=== PATIENT | female | born 1945 | race Caucasian/White ===

== ENCOUNTER 2018-08-27 16:02 | Emergency (ER) | payer MEDICARE ==
[~2018-08-27] VITALS: Ht 149.9 cm; Wt 54.4 kg
--- OUTSIDE RECORDS SUMMARY | ~2018-08-27 | XMS | Clinical Summary ---
Demographics + + + | Address | [address] | | | [place] [address] | + + + | Home Phone | | + + + | Preferred Language | Unknown | + + + | Marital Status | | + + + | Zoroastrianism Affiliation | Unknown | + + + | Race | Unknown | + + + | Ethnic Group | Unknown | + + + Author + + + | Author | [facility] | | | and [place] | + + + | Organization | [facility] | | | and [place] | + + + | Address | Unknown | + + + | Phone | Unavailable | + + + Support + + + + + | Name | Relationship | Address | Phone | + + + + + | Lolly Conrad | ECON | [address] | | | | | [place] | | | | | [address] | | + + + + + | Chun Porter | ECON | [address] | | | | | [place] | | | | | [address] | | + + + + + Care Team Providers + +------+ + | Care Lehr Attendant Name | Role | Phone | + +------+ + | Zackary Tee MD | PP | | + +------+ + Allergies + + + + + + | Active Allergy | Reactions | Severity | Noted | Comments | | | | | Date | | + + + + + + | Codeine | Other (See Comments) | Low | 06/23/19 | Headache | | | | | 18 | | + + + + + + | Hydromorphone | Nausea And Vomiting, | Low | 08/30/19 | | | | Rash | | 18 | | + + + + + + | Penicillins | Itching, Rash | Medium | 06/23/19 | | | | | | 18 | | + + + + + + | Oxycodone | Other (See Comments) | | 08/30/19 | Headache | | | | | 18 | | + + + + + + | Sulfamethoxazole-Tri | Other (See Comments) | | 08/30/19 | Reaction not | | methoprim | | | 18 | specified in outside | | | | | | medical records | + + + + + + | Tyloxapol | Other (See Comments) | Low | 06/23/19 | Other reaction(s): | | | | | 18 | Headache | + + + + + + | Hydrocodone | Other (See Comments) | | 08/30/19 | Headache | | | | | 18 | | + + + + + + | Ondansetron | Other (See Comments) | | 08/30/19 | Headache, | | | | | 18 | constipation | + + + + [...] 0 | | | Activ | | [id number] | | | | | | e | | AMANDA Tierney PO | | | | | | | + + + +---------+------+------+-------+ | potassium chloride | Take 20 mEq by mouth | | 0 | 01/1 | | Activ | | (KLOR-CON M20) 20 | 2 times daily. | | | 9/20 | | e | | mEq ER tablet | | | | 18 | | | + + + +---------+------+------+-------+ | levothyroxine | Take 112 mcg by | | 0 | 02/1 | | Activ | | (SYNTHROID) 112 [...] mouth | | 0 | | | Activ | | TABS | nightly as needed. | | | | | e | + + + +---------+------+------+-------+ | cholecalciferol [...] | Activ | | aspirin-acetaminophe | by mouth every 6 | | | | | e | | n-caffeine (EXCEDRIN | hours as needed for | | | | | | | MIGRAINE) | Pain. | | | | | | | 250-250-65 MG per | | | | | | | | tablet | | | | | | | + + + +---------+------+------+-------+ | ibuprofen (ADVIL, | Take 200-400 mg by | | 0 | | | Activ | | MOTRIN) 200 mg | mouth every 6 hours | | | | | e | | tablet | as needed for Pain. | | | | | | + + + +---------+------+------+-------+ Active Problems Not on file Family History + + +------+ + | [...] + +---------+ + | Alcohol Use | Drinks/We | oz/Week | Comments | | | ek | | | + + +---------+ + | No [...] recent travel history available. | + + Last Filed Vital Signs + + + + | Vital Sign | Reading | Time Taken | + + + + | Blood Pressure | 143/80 | 08/30/2017931 PDT | + + + + | Pulse | 73 | 08/30/2017931 PDT | + + + + | Temperature | - | - | + + + + | Respiratory Rate | - | - | + + + + | Oxygen Saturation | - | - | + + + + | Inhaled Oxygen | - | - | | Concentration | | | + + + + | Weight | 52.2 kg (115 lb) | 08/30/2017931 PDT | + + + + | Height | 149.9 cm (4' 11") | 08/30/2017931 PDT | + + + + | Body Mass Index | 23.23 | 08/30/2017 0932 PDT | + + + + Plan of Treatment + + + + + | Health Maintenance | Due Date | Last Done | Comments | + + + + + | Vaccine: | | | | | Dtap/Tdap/Td (1 - | 3 | | | | Tdap) | | | | + + + + + | Vaccine: Zoster (1 | | | | | of 2) | 4 | | | + + + + + | Vaccine: | | | | | Pneumococcal 65+ | 9 | | | | Low/Medium Risk (1 | | | | | of 2 - PCV13) | | | | + + + + + | Adult Annual | | | | | Wellness Visit | 5 | | | + + + + + | Vaccine: Influenza | | | | | (Season Ended) | 9 | | | + + + + + | Colorectal Cancer | | 04/11/2012 | | | Screening | 3 | | | | (Colonoscopy) | | | | + + + + + Results Not on filefrom Last 3 Months Insurance + +--------+ +--------+-------+---------+--------+ | Payer | Benefi | Subscriber | Effect | Phone | Address | Type | | | t Plan | ID | [place] | | | | | | / | | Dates | | | | | | Group | | | | | | + +--------+ +--------+-------+---------+--------+ | [employer] | MODA | [id number] | 07/11/19 | | | Medica | [...] | | al/Fam | | 1946 | [phone] | [place] [address] | | | [place] | | | 4 (Home) | | + +--------+ +--------+ + + Advance Directives Patient has advance care planning documents on file. For more information, please contact:[facility] [place] [address]
--- OUTSIDE RECORDS SUMMARY | ~2018-08-27 | XMS | Encounter Summary ---
Demographics + + + | Address | [address] | | | [place] [address] | + + + | Home Phone | | + + + | Preferred Language | Unknown | + + + | Marital Status | | + + + | Lutheran Affiliation | Unknown | + + + | Race | White | + + + | Ethnic Group | Not or | + + + Author + + + | Author | [facility] | + + + | Organization | [facility] | + + + | Address | Unknown | + + + | Phone | Unavailable | + + + Support + + + + + | Name | Relationship | Address | Phone | + + + + + | Chun Porter | ECON | [address] | | | | | [place] | | | | | [address] | | + + + + + | Katrina Huerta | ECON | Unknown | | + + + + + Care Team Providers + +------+ + | Care Clinical Educator Name | Role | Phone | + [...] membrane | | 2010 | Visit | [place] | | | | | | [facility] | | | | [facility] [address] [facility] [address] | | | | | [address] | | | | | | Mailcode: [facility] | | | | | | [place], [place] | | | | | | [address] | | | | | | [phone] | | | +--------+---------+ + + + [...] encounter Josiah Gresham - 05/05/2010 4:37 PM Zuleika Sydnee Porter was seen in the [facility] te Photography/Ultrasound Department today, 05/05/2010, for fluorescein, fundus photography a nd OCT ou. ps documented in this enc ounter Plan of Treatment Not on filedocumented as of this encounter Visit Diagnoses + + | Diagnosis | + + | Epiretinal membrane Macular puckering of retina | + + documented in this encounter"
--- OUTSIDE RECORDS SUMMARY | ~2018-08-27 | XMS | Clinical Summary ---
Demographics + + + | Address | [address] | | | [place] [address] | + + + | Home Phone | | + + + | Preferred Language | Unknown | + + + | Marital Status | | + + + | Latter-Day Affiliation | 1077 | + + + | Race | Unknown | + + + | Ethnic Group | Unknown | + + + Author + + + | Author | [facility] | + + + | Organization | [facility] | + + + | Address | Unknown | + + + | Phone | Unavailable | + + + Support + + + + + | Name | Relationship | Address | Phone | + + + + + | Lolly Baugh | ECON | [address] | | | | | [place] | | | | | [address] | | + + + + + Care Team Providers + +------+ + | Care Line And Frame Poler Name | Role | Phone | + +------+ + | Zackary Tee MD | PP | | + +------+ + Allergies + + + + + + | Active Allergy | Reactions | Severity | Noted | Comments | | | | | Date | | + + + + + + | Codeine | Headache | Low | 06/23/19 | Other reaction(s): | | | | | 18 | Other (See | | | | | | Comments) Headache | + + + + + + | Hydrocodone | Other (See Comments) | High | 08/30/19 | Headache | | | | | 18 | | + + + + + + | Hydromorphone | Nausea and Vomiting, | High | 08/30/19 | | | | Rash | | 18 | | + + + + + + | Ondansetron | Other (See Comments) | High | 08/30/19 | Headache, | | | | | 18 | constipation | + + + + + + | Oxycodone | Other (See Comments) | High | 08/30/19 | Headache | | | | | 18 | | + + + + + + | Penicillins | Rash, Itching | Medium | 06/23/19 | | | | | | 18 | | + + + + + + | Sulfamethoxazole-Tri | Other (See Comments) | Medium | 08/30/19 | Reaction not | | methoprim | | | 18 | specified in outside | | | | | | medical records | + + + + + + | Tyloxapol | Headache | High | 06/23/19 | Other reaction(s): | | | | | 18 | Other (See | | | | | | Comments) Other | | | | | | reaction(s): | | | | | | Headache | + + + + + + Current Medications + + +-------+---------+------+------+-------+ | Prescription | Sig. | Disp. | Refills | Star | End | Statu | | | | | | t | Date | s | | | | | | Date | | | + + +-------+---------+------+------+-------+ | levothyroxine | | | | 02/ | | Activ | | (SYNTHROID) 112 MCG | | | | 09/28 | | e | | tablet | | | | 18 | | | + + +-------+---------+------+------+-------+ | SERGEY-SEBLE M20 20 | | | | / | | Activ | | MEQ tablet | | | | 12/29 | | e | | | | | | 18 | | | + + +-------+---------+------+------+-------+ | Multiple | Take 1 tablet by | | | | | Activ | | Vitamins-Minerals | mouth daily. | | | | | e | | (MULTIVITAMIN WITH | | | | | | | | MINERALS) tablet | | | | | | | + + +-------+---------+------+------+-------+ | | Take by mouth. | | | | | Activ | | Qmtaude-Uwpumbdzx-Nw | | | | | | e | | wilbur D (CALCIUM 500 | | | | | | | | PO) | | | | | | | + + +-------+---------+------+------+-------+ | | Take 0.5-1 tablets | | | | | Activ | | aspirin-acetaminophe | by mouth. | | | | | e | | n-caffeine (EXCEDRIN | | | | | | | | MIGRAINE) | | | | | | | | 250-250-65 MG per | | | | | | | | tablet | | | | | | | + + +-------+---------+------+------+-------+ | Cholecalciferol | Take 1,000 Units by | | | | | Activ | | (VITAMIN D3) 1000 | mouth. | | | | | e | | units CAPS | | | | | | | + + +-------+---------+------+------+-------+ | ibuprofen (ADVIL) | Take 200-400 mg by | | | | | Activ | | 200 MG tablet | mouth. | | | | | e | + + +-------+---------+------+------+-------+ | melatonin 3 MG | Take 3 mg by mouth. | | | | | Activ | | TABS | | | | | | e | + + +-------+---------+------+------+-------+ | SHINGRIX 50 MCG | | | | 09/09 | | Activ | | injection | | | | 08/28 | | e | | | | | | 18 | | | + + +-------+---------+------+------+-------+ Active Problems + + + | Problem | Noted Date | + + + | Arthritis | 06/22/2017 | + + + + + | Overview: Added automatically from request for surgery [id number] | + + + + + | Chronic pain of right thumb | 06/22/2017 | + + + + + | Overview: Added automatically from request for surgery [id number] | + + Family History + + +------+ + | Medical History | Relation | Name | Comments | + + +------+ + | Cancer | Cousin | | | + + +------+ + | Diabetes type I | Cousin | | | + + +------+ + | Heart disease | Cousin | | | + + +------+ + | Hypertension | Cousin | | | + + +------+ + | Obesity | Cousin | | | + + +------+ + | Stroke | Cousin | | | + + +------+ + | Thyroid disease | Cousin | | | + + +------+ + | Malig hypertherm | Neg Hx | | | + + +------+ + + +------+--------+ + | Relation | Name | Status | Comments | + +------+--------+ + | Cousin | | | | + +------+--------+ + [...] + + + | Blood Pressure | 122/64 | 11/28/2017 1:46 PM PDT | + + + + | Pulse | 78 | 11/28/2017 1:46 PM PDT | + + + + | Temperature | 36.8 C (98.2 F) | 07/05/2017 6:20 PM PDT | + + + + | Respiratory Rate | 14 | 11/28/2017 1:46 PM PDT | + + + + | Oxygen Saturation | 98% | 07/05/2017 6:20 PM PDT | + + + + | Inhaled Oxygen | - | - | | Concentration | | | + + + + | Weight | 52.2 kg (115 lb) | 11/28/2017 1:46 PM PDT | + + + + | Height | 149.9 cm (4' 11") | 11/28/2017 1:46 PM PDT | + + + + | Body Mass Index | 23.23 | 11/28/2017 1:46 PM PDT | + + + + Plan of Treatment + + + + + | Health Maintenance | Due Date | Last Done | Comments | + + + + + | Vaccine: | | | | | Dtap/Tdap/Td (1 - | 3 | | | | Tdap) | | | | + + + + + | Colon Cancer | | | | | Screening | 4 | | | | (Colonoscopy) | | | | + + + + + | Vaccine: Zoster (1 | | | | | of 2) | 4 | | | + + + + + | DEXA SCAN SCREENING | | | | | | 9 | | | + + [...] filefrom Last 3 Months Insurance + +--------+ +--------+-------+---------+ | Payer | Benefi | Subscriber | Type | Phone | Address | | | t Plan | ID | | | | | | / | | | | | | | Group | | | | | + +--------+ +--------+-------+---------+ | [place] | [id number] | Medica | | | | | MODA | | re | | | | | | | | | | | | | | | | | | | | | | | | | | | | | | | | | | | | | | | | [place] - | | | | | | | [employer] | | | | | + +--------+ +--------+-------+---------+ + +--------+ +--------+ + + | Guarantor Name | Accoun | Relation to | Date | Phone | Billing Address | | | t Type | Patient | of | | | | | | | | | | + +--------+ +--------+ + + | VIANCA PORTER | Person | Self | [birth year] Home: | [address] | | | al/Fam | | 1946 | [phone] [place], | | | [place] | | | [address] | [place] [address] | + +--------+ +--------+ + +
--- OUTSIDE RECORDS SUMMARY | ~2018-08-27 | XMS | Encounter Summary ---
Demographics + + + | Address | [address] | | | [place] [address] | + + + | Home Phone | | + + + | Preferred Language | Unknown | + + + | Marital Status | | + + + | Voodoo Affiliation | Unknown | + + + | Race | White | + + + | Ethnic Group | Not or | + + + Author + + + | Author | [facility] | + + + | Organization | [facility] | + + + | Address | Unknown | + + + | Phone | Unavailable | + + + Support + + + + + | Name | Relationship | Address | Phone | + + + + + | Chun Porter | ECON | [address] | | | | | [place] | | | | | [address] | | + + + + + | Katrina Huerta | ECON | Unknown | | + + + + + Care Team Providers + +------+ + | Care Janitor Supervisor Name | Role | Phone | + [...] membrane | | 2010 | Visit | [place] | | | | | | [facility] | | | | | | [facility] [address] | | | | | [address] | | | | | | Mailcode: [facility] | | | | | | [place], [place] | | | | | | [address] | | | | | | [phone] | | | +--------+---------+ + + + [...] Zuleika Sydnee Porter was seen in the [facility] te Photography/Ultrasound Department today, 05/05/2010, for fluorescein, fundus photography a nd OCT ou. ps documented in this enc ounter Plan of Treatment Not on filedocumented as of this encounter Visit Diagnoses + + | Diagnosis | + + | Epiretinal membrane Macular puckering of retina | + + documented in this encounter"
--- OUTSIDE RECORDS SUMMARY | ~2018-08-27 | XMS | Encounter Summary ---
Demographics + + + | Address | [address] | | | [place] [address] | + + + | Home Phone | | + + + | Preferred Language | Unknown | + + + | Marital Status | | + + + | Shinto Affiliation | Unknown | + + + | Race | White | + + + | Ethnic Group | Not or | + + + Author + + + | Author | [facility] | + + + | Organization | [facility] | + + + | Address | Unknown | + + + | Phone | Unavailable | + + + Support + + + + + | Name | Relationship | Address | Phone | + + + + + | Chun Porter | ECON | [address] | | | | | [place] | | | | | [address] | | + + + + + | Katrina Huerta | ECON | Unknown | | + + + + + Care Team Providers + +------+ + | Care School Psychology Professor Name | Role | Phone | + +------+ + | Kevin Hummel MD | PCP | | + +------+ + Reason for Visit + + + | Reason | Comments | + + + | New patient | Armhole Raiser Lockstitch saw swelling in macula area of retina | | consultation | | + + + Encounter Details +--------+---------+ + + + | Date | Type | Department | Care Team | Description | +--------+---------+ + + + | 05/05/ | Office | [facility] | Marycruz Osman, | Epiretinal membrane | | 2010 | Visit | [facility] at | [address] | (Primary Dx) | | | | [place] [address] | | | | | [address] | [place], [place] | | | | | Mailcode: [place] | [address] | | | | | [place], [place] | [phone] | | | | | [address] | | | | | | [phone] | | | +--------+---------+ + + + [...] Patient presents with: New patient consultation - Armhole Raiser Lockstitch saw swelling in macula area of retina HPI: Vianca Porter is a 64 y.o. 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 Madrid, [place], [place]) Chronic Dry Eye & Blepharitis Glasses since 1955 (age 9 years) PMH: Reviewed in [facility], + HTN SH: Reviewed in [facility], Tobacco: Never used, Drives, Lives with spouse [...] the plan Umu Nunez MD Ophthalmology Resident [facility] I reviewed all components above, made necessary [...] | + +--------+ + + + | [place] SPECIAL EYE EXAM, | Routin | 05/11/2010 | Epiretinal | | | INITIAL | e | 1:58 PM | membrane | | | | | PST | | | + +--------+ + + + | [place] FLUORESCEIN | Routin | 05/11/2010 | Epiretinal | | | ANGIOGRAPHY | e | 1:57 PM | membrane | | | | | PST | | | + +--------+ + + + | [place] FLUORESCEIN | Routin | 05/11/2010 | Epiretinal [...]
--- OUTSIDE RECORDS SUMMARY | ~2018-08-27 | XMS | Clinical Summary ---
Demographics + + + | Address | [address] | | | [place] [address] | + + + | Home Phone | | + + + | Preferred Language | Unknown | + + + | Marital Status | | + + + | Mormon Affiliation | 1077 | + + + | Race | Unknown | + + + | Ethnic Group | Unknown | + + + Author + + + | Author | [facility] | + + + | Organization | [facility] | + + + | Address | Unknown | + + + | Phone | Unavailable | + + + Support + + + + + | Name | Relationship | Address | Phone | + + + + + | Lolly Baugh | ECON | [address] | | | | | [place] | | | | | [address] | | + + + + + Care Team Providers + +------+ + | Care Anesthesiologist Physician Name | Role | Phone | + [...] | | | | Activ | | Rhocidn-Socxtxvxz-Bm | | | | | | e [...] Overview: Added automatically from request for surgery [id number] | + + + + + | Chronic pain of right thumb | 06/22/2017 | + + + + + | Overview: Added automatically from request for surgery [id number] | + + Family History + + [...] [place] - MODA | [place] - | [id number] | Medica | | | | | [...] | | al/Fam | | 1946 | [phone] | [place], | | | [place] | | | [address] | [place] [address] | + +--------+ +--------+ + +
--- OUTSIDE RECORDS SUMMARY | ~2018-08-27 | XMS | Encounter Summary ---
Demographics + + + | Address | [address] | | | [place] [address] | + + + | Home Phone | | + + + | Preferred Language | Unknown | + + + | Marital Status | | + + + | Samaritan Affiliation | Unknown | + + + | Race | White | + + + | Ethnic Group | Not or | + + + Author + + + | Author | [facility] | + + + | Organization | [facility] | + + + | Address | Unknown | + + + | Phone | Unavailable | + + + Support + + + + + | Name | Relationship | Address | Phone | + + + + + | Chun Porter | ECON | [address] | | | | | [place] | | | | | [address] | | + + + + + | Katrina Huerta | ECON | Unknown | | + + + + + Care Team Providers + +------+ + | Care Forest Fire Prevention Specialist Name | Role | Phone | + +------+ + | Kevin Hummel MD | PCP | | + +------+ + Reason for Visit + + + | Reason | Comments | + + + | New patient | Machine Sweeper Brush Maker saw swelling in macula area of retina | | consultation | | + + + Encounter Details +--------+---------+ + + + | Date | Type | Department | Care Team | Description | +--------+---------+ + + + | 05/05/ | Office | [facility] | Marycurz Osman, | Epiretinal membrane | | 2010 | Visit | [facility] at | [address] | (Primary Dx) | | | | [place] [address] | | | | | [address] | [place], [place] | | | | | Mailcode: [place] | [address] | | | | | [place], [place] | [phone] | | | | | [address] | | | | | | [phone] | | | +--------+---------+ + + + [...] Patient presents with: New patient consultation - Machine Sweeper Brush Maker saw swelling in macula area of retina HPI: Vianca Porter is a 64 y.o. 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 Madrid, [place], [place]) Chronic Dry Eye & Blepharitis Glasses since 1955 (age 9 years) PMH: Reviewed in [facility], + HTN SH: Reviewed in [facility], Tobacco: Never used, Drives, Lives with [...] the plan Umu Nunez MD Ophthalmology Resident [facility] I reviewed all components above, made necessary [...] | + +--------+ + + + | [place] SPECIAL EYE EXAM, | Routin | 05/11/2010 | Epiretinal | | | INITIAL | e | 1:58 PM | membrane | | | | | PST | | | + +--------+ + + + | [place] FLUORESCEIN | Routin | 05/11/2010 | Epiretinal | | | ANGIOGRAPHY | e | 1:57 PM | membrane | | | | | PST | | | + +--------+ + + + | [place] FLUORESCEIN | Routin | 05/11/2010 | Epiretinal [...]
--- OUTSIDE RECORDS SUMMARY | ~2018-08-27 | XMS | Clinical Summary ---
Demographics + + + | Address | [address] | | | [place] [address] | + + + | Home Phone [...] Author + + + | Author | [facility] | + + + | Organization | [facility] | + + + | Address | Unknown | + + + | Phone | Unavailable | + + + Support + + + + + | Name | Relationship | Address | Phone | + + + + + | Chun Porter | ECON | [address] | | | | | [place] | | | | | [address] | | + + + + + | Katrina Huerta | ECON | Unknown | | + + + + + Care Team Providers + +------+ + | Care Vault Person Name | Role | Phone | + +------+ + | Kevin Hummel MD | PP | | + +------+ + Source Comments MORAIMAHILLARY is fully live on both EpicCare Ambulatory and EpicCare InPatient.[facility] Allergies + + + + + + [...] recent travel history available. | + + Plan of Treatment + + + + + | Health Maintenance | Due Date | Last Done | Comments | + + + + + | Pneumococcal (Adult) | | | | | (1 of 2 - PCV13) | 9 | | | + + + + + | Influenza (Flu) | | | | | vaccination (Season | 9 | | | | Ended) | | | | + + + + + Results Not on filefrom Last 3 Months"
--- OUTSIDE RECORDS SUMMARY | ~2018-08-27 | XMS | Clinical Summary ---
Demographics + + + | Address | [address] | | | [place] [address] | + + + | Home Phone | | + + + | Preferred Language | Unknown | + + + | Marital Status | | + + + | Protestant Affiliation | Unknown | + + + | Race | White | + + + | Ethnic Group | Not or | + + + Author + + + | Author | [facility] | + + + | Organization | [facility] | + + + | Address | Unknown | + + + | Phone | Unavailable | + + + Support + + + + + | Name | Relationship | Address | Phone | + + + + + | Chun Porter | ECON | [address] | | | | | [place] | | | | | [address] | | + + + + + | Katrina Huerta | ECON | Unknown | | + + + + + Care Team Providers + +------+ + | Care Quality Assurance Monitor Final Name | Role | Phone | + +------+ + | Kevin Hummel MD | PP | | + +------+ + Source Comments MORAIMAHILLARY is fully live on both EpicCare Ambulatory and EpicCare InPatient.[facility] Allergies + + + + [...]
--- OUTSIDE RECORDS SUMMARY | ~2018-08-27 | XMS | Clinical Summary ---
Demographics + + + | Address | [address] | | | [place] [address] | + + + | Home Phone | | + + + | Preferred Language | Unknown | + + + | Marital Status | | + + + | Temple Affiliation | Unknown | + + + | Race | Unknown | + + + | Ethnic Group | Unknown | + + + Author + + + | Author | [facility] | | | and [place] | + + + | Organization | [facility] | | | and [place] | + + + | Address | Unknown | + + + | Phone | Unavailable | + + + Support + + + + + | Name | Relationship | Address | Phone | + + + + + | Lolly Conrad | ECON | [address] | | | | | [place] | | | | | [address] | | + + + + + | Chun Porter | ECON | [address] | | | | | [place] | | | | | [address] | | + + + + + Care Team Providers + +------+ + | Care Embroidery Operator Name | Role | Phone | [...] 0 | | | Activ | | [id number] | | | | | | e [...] | [employer] | [employer] | [id number] | 07/11/19 | | | Medica | [...] | | al/Fam | | 1946 | [phone] | [place] [address] | | | nelson | | | 4 (Home) | | + +--------+ +--------+ + + Advance Directives Patient has advance care planning documents on file. For more information, please contact:[facility] [place] [address]
[~2018-08-27 16:02] MED LIST: FLUTICASONE PRO16 GM; FLUTICASONE PRO16 GM NS; IBUPROFEN600 MG PO; KLOR-CON20 MEQ PO; LEVAQUIN500 MG PO; MELATONIN3 M1; MULTIVITAMINS1 EAC7 PO; SOOTHE LUBRICA1 EACH OU; SYNTHROID112 MCG PO; TESSALON PERLE100 MG PO; TRAMADOL HCL50 MG PO; VITAMIN D1000 UNI1 PO; ZOFRAN4 MG PO
--- NOTE | 2018-08-28 11:52 | EKG ---
[facility] [address] [facility] [place], [place] [address] Signed Normal sinus rhythm Normal ECG When compared with ECG of 27-AUG-2018 16:09, (Unconfirmed) No significant change was found Confirmed by MANISH RODRIGES DO ([id number]) on 08/28/2018 11:51:53 AM Electronically Signed By: MANISH RODRIGES DO 08/28/18 1152 PATIENT NAME: JESÚS FELIX KELVIN Electrocardiogram DATE OF : 41 PHYSICIAN: MANISH RODRIGES DO REPORT #: [id number] REPORT IS CONFIDENTIAL AND NOT TO BE RELEASED WITHOUT AUTHORIZATION
--- NOTE | 2018-08-28 11:52 | EKG ---
[facility] [address] [facility] [place], [place] [address] Signed Normal sinus rhythm Nonspecific ST abnormality Abnormal ECG No previous ECGs available Confirmed by MANISH RODRIGES DO ([id number]) on 08/28/2018 11:51:49 AM Electronically Signed By: MANISH RODRIGES DO 08/28/18 1152 PATIENT NAME: JESÚS FELIX KELVIN Electrocardiogram DATE OF : 41 PHYSICIAN: MANISH RODRIGES DO REPORT #: [id number] REPORT IS CONFIDENTIAL AND NOT TO BE RELEASED WITHOUT AUTHORIZATION
== END 2018-08-27 20:41 | disposition home or self-care (01) ==
LOC: ED 16:02
DX: R07.89 Other chest pain (principal); R10.10 Upper abdominal pain, unspecified; R11.2 Nausea with vomiting, unspecified; E89.0 Postprocedural hypothyroidism; Z90.49 Acquired absence of other specified parts of digestive tract; Z88.0 Allergy status to penicillin; Z88.5 Allergy status to narcotic agent; Z88.2 Allergy status to sulfonamides; Z79.899 Other long term (current) drug therapy
CPT/HCPCS: 36415; 71045; 74177; 80053; 83690; 84484; 85025; 93005; 93010; 99285-25; C9113; J2405; J2550; Q9967

== ENCOUNTER 2018-10-12 14:50 | Emergency (ER) | payer OTHER, MEDICARE ==
[~2018-10-12] VITALS: Ht 149.9 cm; Wt 54.4 kg
[2018-10-12] MEDS ORDERED: IBU800 MG PO (15:26)
== END 2018-10-12 15:39 | disposition home or self-care (01) ==
LOC: ED 14:50
DX: S16.1XXA Strain of muscle, fascia and tendon at neck level, initial encounter (principal); Z90.49 Acquired absence of other specified parts of digestive tract; Z90.89 Acquired absence of other organs; Z88.0 Allergy status to penicillin; Z88.5 Allergy status to narcotic agent; Z88.1 Allergy status to other antibiotic agents; Z88.2 Allergy status to sulfonamides; Z79.899 Other long term (current) drug therapy; V43.62XA Car passenger injured in collision with other type car in traffic accident, initial encounter
CPT/HCPCS: 99283

== ENCOUNTER 2018-12-18 06:38 | Emergency (ER) | payer OTHER, MEDICARE ==
[~2018-12-18] VITALS: Ht 149.9 cm; Wt 54.4 kg
[~2018-12-18 06:38] MED LIST changes: +IBU800 MG PO
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
[2018-12-18] MEDS ORDERED: VITAMIN C250 M1 PO (06:56)
[2018-12-18] MEDS ORDERED: TURMERIC COMPL1 EACH PO (06:57)
[2018-12-18] MEDS ORDERED: CITALOPRAM HBR10 MG PO (07:13)
[2018-12-18] MEDS ORDERED: CYCLOBENZAPRINE10 MG PO (07:13)
== END 2018-12-18 07:24 | disposition home or self-care (01) ==
LOC: ED 06:38
DX: S29.9XXA Unspecified injury of thorax, initial encounter (principal); F32.9 Major depressive disorder, single episode, unspecified; Z88.2 Allergy status to sulfonamides; Z88.0 Allergy status to penicillin; Z88.1 Allergy status to other antibiotic agents; Z88.5 Allergy status to narcotic agent; Z79.899 Other long term (current) drug therapy; V89.2XXA Person injured in unspecified motor-vehicle accident, traffic, initial encounter
CPT/HCPCS: 99283

== ENCOUNTER 2018-12-20 03:25 | Emergency (ER) | payer MEDICARE ==
[~2018-12-20] VITALS: Ht 149.9 cm; Wt 54.4 kg
[~2018-12-20 03:25] MED LIST changes: +CITALOPRAM HBR10 MG PO; +CYCLOBENZAPRINE10 MG PO; +TURMERIC COMPL1 EACH PO; +VITAMIN C250 M1 PO
--- OUTSIDE RECORDS SUMMARY | 2018-12-20 03:28 | XMS ---
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 Care History Medical/Surgical 10/20/2018 [facility] - Patient is currently established with [facility]. If patient is seen in the ED during business hours. Please contact CHWs at [facility]. Care Recommendation: This patient has had 5 [...] providing care. E.D. VISIT COUNT (12 MO.) 6 [facility]. TOTAL 6 NOTE: Visits indicate total known visits. ED/UCC VISIT TRACKING (12 MO.) 12/20/2018 03:25 [facility] [place] TYPE: Emergency COMPLAINT: - CHEST PAIN 12/18/2018 06:41 [facility] [place] TYPE: Emergency COMPLAINT: - BACK PAIN 10/19/2018 11:20 [facility] [place] TYPE: [...] at neck level, initial encounter - Other longterm (current) drug therapy - Allergy status to [...] - Allergy status to penicillin - Other longterm (current) drug therapy - Other chest pain - Allergy status to narcotic agent status - Upper abdominal pain, unspecified - Allergy status to sulfonamides status - Nausea with vomiting, unspecified - Postprocedural hypothyroidism - Acquired absence of other specified parts of digestive tract INPATIENT VISIT TRACKING (12 MO.) No inpatient visits to display in this time frame [id number]
[2018-12-20] MEDS ORDERED: FAMOTIDINE40 MG PO (03:55)
--- NOTE | 2018-12-21 13:06 | EKG ---
[facility] [address] [facility] [place], [place] [address] Signed Normal sinus rhythm Normal ECG When compared with ECG of 27-AUG-2018 16:48, No significant change was found Confirmed by BALBINA MCCARTNEY MD ([id number]) on 12/21/2018 1:06:12 PM Electronically Signed By: BALBINA MCCARTNEY MD 12/21/18 1306 PATIENT NAME: JESÚS FELIX Electrocardiogram DATE OF : 41 PHYSICIAN: BALBINA MCCARTNEY MD REPORT #: [id number] REPORT IS CONFIDENTIAL AND NOT TO BE RELEASED WITHOUT AUTHORIZATION
== END 2018-12-20 07:27 | disposition home or self-care (01) ==
LOC: ED 03:25
DX: R07.89 Other chest pain (principal); Z88.0 Allergy status to penicillin; Z88.8 Allergy status to other drugs, medicaments and biological substances; Z88.5 Allergy status to narcotic agent; Z88.1 Allergy status to other antibiotic agents; Z88.2 Allergy status to sulfonamides; Z79.899 Other long term (current) drug therapy
CPT/HCPCS: 36415; 71045; 80053; 83735; 84484; 85025; 93005; 93010; 99285-25

== ENCOUNTER 2019-10-06 10:50 | Inpatient (IN) | payer MEDICARE, OTHER ==
[~2019-10-06] VITALS: Ht 154.9 cm; Wt 54.4 kg
--- OUTSIDE RECORDS SUMMARY | ~2019-10-06 | XMS | Encounter Summary ---
Demographics + + + | Address | [address] | | | [place] [address] | + + + | Home Phone | | + + + | Preferred Language | Unknown | + + + | Marital Status | | + + + | Hoahaoism Affiliation | Unknown | + + + | Race | Unknown | + + + | Ethnic Group | Unknown | + + + Author + + + | Author | [facility] | | | and [place] | + + + | Organization | [facility] | | | and [place] | + + + | Address | Unknown | + + + | Phone | Unavailable | + + + Support + + + + + | Name | Relationship | Address | Phone | + + + + + | Lolly Conrad | ECON | [address] | | | | | [place], [place] | | | | | [address] | | + + + + + | Chun Porter | ECON | [address] | | | | | [place] | | | | | [address] | | + + + + + Care Team Providers + +------+ + | Care Delivery Rep Name | Role | Phone | + [...] | | [address] [place] | [phone] | | | | | [address] | | | | | | [phone] | | | +--------+ + + + [...] as of this encounter Plan of Treatment +--------+---------+ + + + | Date | Type | Specialty | Care Team | Description | +--------+---------+ + + + | 10/10/ | Office | Cardiology | Virginie Wiseman | | | 2019 | Visit | | [address] | | | | | | [place] | | | | | | [place] [address] | | | | | | [phone] | | | | | | | | +--------+---------+ + + + documented as of this encounter Visit Diagnoses Not on filedocumented in this encounter"
--- OUTSIDE RECORDS SUMMARY | ~2019-10-06 | XMS | Encounter Summary ---
Demographics + + + | Address | [address] | | | [place] [address] | + + + | Home Phone | | + + + | Preferred Language | Unknown | + + + | Marital Status | | + + + | Zoroastrian Affiliation | Unknown | + + + | Race | Unknown | + + + | Ethnic Group | Unknown | + + + Author + + + | Author | [facility] | | | and [place] | + + + | Organization | [facility] | | | and [place] | + + + | Address | Unknown | + + + | Phone | Unavailable | + + + Support + + + + + | Name | Relationship | Address | Phone | + + + + + | Lolly Conrad | ECON | [address] | | | | | [place], [place] | | | | | [address] | | + + + + + | Chun Porter | ECON | [address] | | | | | [place] | | | | | [address] | | + + + + + Care Team Providers + +------+ + | Care Hosiery Mender Name | Role | Phone | + +------+ + PCP | Unavailable | + +------+ + Reason for Visit +--------+--------+ + | Reason | Onset | Comments | | | Date | | +--------+--------+ + | Other | 05/01/ | | | | 2013 | | +--------+--------+ + Encounter Details +--------+ + + + + | Date | Type | Department | Care Team | Description | +--------+ + + + + | 05/01/ | Telephone | [facility] | Srikanth Sawyer MD | Other | | 2013 | | GASTROENTEROLOGY | [address], [place] | | | | | [address] [place] | [address] [place] [place] | | | | | [address] [place], [place] | [address] | | | | | [address] | | | | | | [phone] | | | +--------+ + + + [...] + + documented as of this encounter Miscellaneous Notes Telephone Encounter - Malini Tinsley RN - 05/01/2013 8:43 AM PSTNoted.Electronicall y signed by Malini Tinsley RN at 05/01/2013 8:44 AM PSTTelephone Encounter - Mendez Wetzel - 05/01/2013 8:26 AM PSTPatient called to make sure that [facility] to Dr. Jose Brady ([facility] in [place]. Patient stated that Dr. Brady is [facility] physician who ordered everything and who referred. documented in this encounter Plan of Treatment +--------+---------+ + + + | Date | Type | Specialty | Care Team | Description | +--------+---------+ + + + | 10/10/ | Office | Cardiology | Virginie Wiseman | | | 2019 | Visit | | [address] | | | | | | [place] | | | | | | [place] [address] | | | | | | [phone] | | | | | | | | +--------+---------+ + + + documented as of this encounter Visit Diagnoses Not on filedocumented in this encounter"
--- OUTSIDE RECORDS SUMMARY | ~2019-10-06 | XMS | Encounter Summary ---
Demographics + + + | Address | [address] | | | [place] [address] | + + + | Home Phone | | + + + | Preferred Language | Unknown | + + + | Marital Status | | + + + | Anglican Affiliation | Unknown | + + + | Race | Unknown | + + + | Ethnic Group | Unknown | + + + Author + + + | Author | [facility] | | | and [place] | + + + | Organization | [facility] | | | and [place] | + + + | Address | Unknown | + + + | Phone | Unavailable | + + + Support + + + + + | Name | Relationship | Address | Phone | + + + + + | Lolly Conrad | ECON | [address] | | | | | [place], [place] | | | | | [address] | | + + + + + | Chun Porter | ECON | [address] | | | | | [place] | | | | | [address] | | + + + + + Care Team Providers + +------+ + | Care Insurance Solicitor Name | Role | Phone | + +------+ + | Zackary Tee MD | PCP | | + +------+ + Encounter Details +--------+ + + + + | Date | Type | Department | Care Team | Description | +--------+ + + + + | 08/30/ | Hospital | [facility] | Buck Workman, | Back pain, | | 2018 | Encounter | MED [facility] XRAY [address] | DO [address] | unspecified back | | | | [place] | [place] [address] [place], [place] | location, | | | | [place] [address] | [address] | unspecified back | | | | [phone] | | pain laterality, | | | | | | unspecified | | | | | | chronicity | +--------+ + + + + Social History + +-------+ +--------+------+ | Tobacco Use | Types | Packs/Day | Years | Date | | | | | Used | | + +-------+ +--------+------+ | Never Smoker | | | | | + +-------+ +--------+------+ + +---+---+---+ | Smokeless Tobacco: | | | | | Never Used | | | | + +---+---+---+ + + +---------+ + | Alcohol Use | Drinks/Week | oz/Week | Comments | + + +---------+ + | No | | | | + + +---------+ + + + + | Sex Assigned at | Date Recorded | | | | + + + | Not on file | | + + + documented as of this encounter Medications at Time of Discharge + + + +---------+ + + | Medication | Sig | Dispensed | Refills | Start | End Date | | | | | | Date | | + + + +---------+ + + | | Take by mouth. | | 0 | | | | [id number] | | | | | | | TAMIN D PO | | | | | | + + + +---------+ + + | cholecalciferol | Take 1,000 Units by | | 0 | | | | (VITAMIN D-3) 1,000 | mouth Daily. | | | | | | units capsule | | | | | | + + + +---------+ + + | levothyroxine | Take 112 mcg by | | 0 | 05/27/19 | | | (SYNTHROID) 112 mcg | mouth every morning | | | 18 | | | tablet | (before breakfast). | | | | | + + + +---------+ + + | Multiple | Take 1 tablet by | | 0 | | | | Vitamins-Minerals | mouth Daily. | | | | | | (MULTIVITAMIN WITH | | | | | | | MINERALS) tablet | | | | | | + + + +---------+ + + | potassium chloride | Take 20 mEq by mouth | | 0 | 04/29/19 | | | (KLOR-CON M20) 20 | 2 times daily. | | | 18 | | | mEq ER tablet | | | | | | + + + +---------+ + + | | Take 0.5-1 tablets | | 0 | | | | aspirin-acetaminophe | by mouth every 6 | | | | 0 | | n-caffeine (EXCEDRIN | hours as needed for | | | | | | MIGRAINE) | Pain. | | | | | | 250-250-65 MG per | | | | | | | tablet | | | | | | + + + +---------+ + + | ibuprofen (ADVIL, | Take 200-400 mg by | | 0 | | | | MOTRIN) 200 mg | mouth every 6 hours | | | | 0 | | tablet | as needed for Pain. | | | | | + + + +---------+ + + | melatonin 3 mg | Take 3 mg by mouth | | 0 | | | | TABS | nightly as needed. | | | | 0 | + + + +---------+ + + documented as of this encounter Plan of Treatment +--------+---------+ + + + | Date | Type | Specialty | Care Team | Description | +--------+---------+ + + + | 10/10/ | Office | Cardiology | Virginie Wiseman | | | 2020 | Visit | | [address] | | | | | | [address] | | | | | | [place] [address] | | | | | | [phone] | | | | | | | | +--------+---------+ + + + documented as of this encounter Procedures + +--------+ + + + | Procedure Name | Priori | Date/Time | Associated Diagnosis | Comments | | | ty | | | | + +--------+ + + + | XR LUMBAR SPINE 4 + | Routin | 08/30/2017 | Back pain, | Results for this | | VW | e | 8:50 AM | unspecified back | procedure are in the | | | | PDT | location, | results section. | | | | | unspecified back | | | | | | pain laterality, | | | | | | unspecified | | | | | | chronicity | | + +--------+ + + + documented in this encounter Results XR Lumbar Spine 4 [...] back pain laterality, unspecified | | chronicity | + + documented in this encounter"
--- OUTSIDE RECORDS SUMMARY | ~2019-10-06 | XMS | Encounter Summary ---
Demographics + + + | Address | [address] | | | [place] [address] | + + + | Home Phone | | + + + | Preferred Language | Unknown | + + + | Marital Status | | + + + | Orthodox Affiliation | Unknown | + + + | Race | Unknown | + + + | Ethnic Group | Unknown | + + + Author + + + | Author | [facility] | | | and [place] | + + + | Organization | [facility] | | | and [place] | + + + | Address | Unknown | + + + | Phone | Unavailable | + + + Support + + + + + | Name | Relationship | Address | Phone | + + + + + | Lolly Conrad | ECON | [address] | | | | | [place], [place] | | | | | [address] | | + + + + + | Chun Porter | ECON | [address] | | | | | [place] | | | | | [address] | | + + + + + Care Team Providers + +------+ + | Care Design Painter Name | Role | Phone | + +------+ + | Zackary Tee MD | PCP | | + +------+ + Encounter Details +--------+ + + + + | Date | Type | Department | Care Team | Description | +--------+ + + + + | 11/07/ | Orders Only | [facility] | Provider, | | | 2019 | | [facility] | [address] | | | | | [address] | [address] | | | | | [address] [place], [place] | [place] [address] | | | | | [address] | | | | | | [phone] | | | +--------+ + + + [...] [address] | | | | | | [place] [address] | | | | | | [phone] | | | | | | | | +--------+---------+ + + + documented as of this encounter Visit Diagnoses Not on filedocumented in this encounter"
--- OUTSIDE RECORDS SUMMARY | ~2019-10-06 | XMS | Clinical Summary ---
Demographics + + + | Address | [address] | | | [place] [address] | + + + | Home Phone | | + + + | Preferred Language | Unknown | + + + | Marital Status | | + + + | Zoroastrian Affiliation | Unknown | + + + | Race | Unknown | + + + | Ethnic Group | Unknown | + + + Author + + + | Author | [facility] | | | and [place] | + + + | Organization | [facility] | | | and [place] | + + + | Address | Unknown | + + + | Phone | Unavailable | + + + Support + + + + + | Name | Relationship | Address | Phone | + + + + + | Lolly Conrad | ECON | [address] | | | | | [place], [place] | | | | | [address] | | + + + + + | Chun Porter | ECON | [address] | | | | | [place] | | | | | [address] | | + + + + + Care Team Providers + +------+ + | Care Motion Picture Cameraman Name | Role | Phone | + +------+ + | Zackary Tee MD | PCP | | + +------+ + Allergies + + + + + + | Active Allergy | Reactions | Severity | Noted | Comments | | | | | Date | | + + + + + + | Codeine | Other (See | Low | 06/23/19 | Headache Other | | | Comments), Headache | | 18 | reaction(s): Other | | | | | | (See Comments) | | | | | | Headache | + + + + + + | Hydrocodone | Other (See Comments) | High | 08/30/19 | Headache Headache | | | | | 18 | | + + + + + + | Hydromorphone | Nausea And Vomiting, | High | 08/30/19 | | | | Rash | | 18 | | + + + + + + | Ondansetron | Other (See Comments) | High | 08/30/19 | Headache, | | | | | 18 | constipation | | | | | | Headache, | | | | | | constipation | + + + + + + | Oxycodone | Other (See Comments) | High | 08/30/19 | Headache Headache | | | | | 18 | | + + + + + + | Penicillins | Itching, Rash | Medium | 06/23/19 | | | | | | 18 | | + + + + + + | Sulfamethoxazole-Tri | Other (See Comments) | Medium | 08/30/19 | Reaction not | | methoprim | | | 18 | specified in outside | | | | | | medical records | | | | | | Reaction not | | | | | | specified in outside | | | | | | medical records | + + + + + + | Tyloxapol | Other (See | High | 06/23/19 | Other reaction(s): | | | Comments), Headache | | 18 | Headache Other | | | | | | reaction(s): Other | | | | | | (See Comments) | | | | | | Other reaction(s): | | | | | | Headache | + + + + + + Medications + + + +---------+------+------+-------+ | Medication | Sig | Dispensed | Refills | Star | End | Statu | | | | | | t | Date | s | | | | | | Date | | | + + + +---------+------+------+-------+ | | Take by mouth. | | 0 | | | Activ | | [id number]-ER | | | | | | e | | AMANDA Tierney PO | | | | | | | + + + +---------+------+------+-------+ | potassium chloride | Take 20 mEq by mouth | | 0 | 01/1 | | Activ | | (KLOR-CON M20) 20 | 2 times daily. | | | /20 | | e | | mEq ER tablet | | | | 18 | | | + + + +---------+------+------+-------+ | levothyroxine | Take 112 mcg by | | 0 | 02/ | | Activ | | (SYNTHROID) 112 mcg | mouth every morning | | | 6/20 | | e | | tablet | (before breakfast). | | | 18 | | | + + + +---------+------+------+-------+ | Multiple | Take 1 tablet by | | 0 | | | Activ | | Vitamins-Minerals | mouth Daily. | | | | | e | | (MULTIVITAMIN WITH | | | | | | | | MINERALS) tablet | | | | | | | + + + +---------+------+------+-------+ | cholecalciferol | Take 1,000 Units by | | 0 | | | Activ | | (VITAMIN D-3) 1,000 | mouth Daily. | | | | | e | | units capsule | | | | | | | + + + +---------+------+------+-------+ | | Take 0.5-1 tablets | | 0 | | | Activ | | aspirin-acetaminophe | by mouth. | | | | | e | | n-caffeine (EXCEDRIN | | | | | | | | MIGRAINE) | | | | | | | | 250-250-65 MG per | | | | | | | | tablet | | | | | | | + + + +---------+------+------+-------+ | ibuprofen (ADVIL, | Take 200-400 mg by | | 0 | | | Activ | | MOTRIN) 200 mg | mouth. | | | | | e | | tablet | | | | | | | + + + +---------+------+------+-------+ | melatonin 3 mg | Take 3 mg by mouth. | | 0 | | | Activ | | TABS | | | | | | e | + + + +---------+------+------+-------+ | TURMERIC PO | Take by mouth. | | 0 | | | Activ | | | | | | | | e | + + + +---------+------+------+-------+ | celecoxib | Take 100 mg by mouth | | 0 | 02/2 | | Activ | | (CELEBREX) 100 mg | Daily. | | | 0/20 | | e | | capsule | | | | 20 | | | + + + +---------+------+------+-------+ | lisinopril | Take 2.5 mg by mouth | | 0 | 03/0 | | Activ | | (PRINIVIL,ZESTRIL) | Daily. | | | 1/20 | | e | | 2.5 MG tablet | | | | 20 | | | + + + +---------+------+------+-------+ Active Problems + + + | Problem | Noted Date | + + + | Arthritis | 06/22/2017 | + + + + + | Overview: Overview: | | Added automatically from request for surgery [id number] | + + + + + | Chronic pain of right thumb | 06/22/2017 | + + + + + | Overview: Overview: | | Added automatically from request for surgery [id number] | + + Family History + + +------+ + | Medical History | Relation | Name | Comments | + + +------+ + | Autism | Brother | | | + + +------+ + | Heart disease | Brother | | | + + +------+ + | Thyroid cancer | Brother | | | + + +------+ + | Thyroid disease | Brother | | | + + +------+ + | Colon cancer | Father | | | + + +------+ + | Gout | Father | | | + + +------+ + | Scoliosis | Father | | | + + +------+ + | Mental illness | Maternal | | | | | Grandfath | | | | | er | | | + + +------+ + | Scoliosis | Maternal | | | | | Grandfath | | | | | er | | | + + +------+ + | Heart disease | Maternal | | | | | Grandmoth | | | | | er | | | + + +------+ + | Heart attack | Mother | | | + + +------+ + | Heart disease | Mother | | | + + +------+ + | Cancer | Other | | | + + +------+ + | Heart disease | Other | | | + + +------+ + | Diabetes, IDDM | Other | | | + + +------+ + | Hypertension | Other | | | + + +------+ + | Obesity | Other | | | + + +------+ + | Thyroid disease | Other | | | + + +------+ + | Stroke | Other | | | + + +------+ + | Diabetes | Paternal | | | | | Grandfath | | | | | er | | | + + +------+ + | Stroke | Paternal | | | | | Grandfath | | | | | er | | | + + +------+ + | Early | Paternal | | Appendicitis | | | Grandmoth | | | | | er | | | + + +------+ + | Malig hypertherm | Neg Hx | | | + + +------+ + + +------+ + + | Relation | Name | Status | Comments | + +------+ + + | Brother | | | | | | | (Age | | | | | 64) | | + +------+ + + | Brother | | Alive | | + +------+ + + | Father | | | Colon Cancer | | | | (Age | | | | | 82) | | + +------+ + + | Maternal Grandfather | | | | + +------+ + + | Maternal Grandmother | | | Heart | | | | (Age | | | | | 81) | | + +------+ + + | Mother | | | HEART ATTACK | | | | (Age | | | | | 81) | | + +------+ + + | Other | | | | + +------+ + + | Other | | | | + +------+ + + | Other | | | | + +------+ + + | Other | | | | + +------+ + + | Other | | | | + +------+ + + | Other | | | | + +------+ + + | Other | | | | + +------+ + + | Paternal Grandfather | | | | + +------+ + + | Paternal Grandmother | | | | | | | (Age | | | | | 25) | | + +------+ + + Social History + +-------+ +--------+------+ [...] on file | | + + + Last Filed Vital Signs + + + + + | Vital Sign | Reading | Time Taken | Comments | + + + + + | Blood Pressure | 96/60 | 06/14/2019 2:05 PM | | | | | PST | | + + + + + | Pulse | 83 | 06/14/2019 2:05 PM | | | | | PST | | + + + + + | Temperature | 36.8 C (98.2 F) | 07/05/2017 6:27 PM | | | | | PDT | | + + + + + | Respiratory Rate | 14 | 11/28/2017 1:50 PM | | | | | PDT | | + + + + + | Oxygen Saturation | 98% | 06/14/2019 2:05 PM | | | | | PST | | + + + + + | Inhaled Oxygen | - | - | | | Concentration | | | | + + + + + | Weight | 54.4 kg (120 lb) | 06/14/2019 2:05 PM | | | | | PST | | + + + + + | Height | 149.9 cm (4' 11") | 06/14/2019 2:05 PM | | | | | PST | | + + + + + | Body Mass Index | 24.24 | 06/14/2019 2:05 PM | | | | | PST | | + + + + + Plan of Treatment +--------+---------+ + + + | Date | Type | Specialty | Care Team | Description | +--------+---------+ + + + | 10/10/ | Office | Cardiology | MikeharpalVirginie leija | | | 2020 | Visit | | [facility] [address] | | | | | | [place] | | | | | | [place] [address] | | | | | | [phone] | | | | | | | | +--------+---------+ + + + + + +-------+ + | Health Maintenance | Due Date | Last | Comments | | | | Done | | + + +-------+ + | Vaccine: | | | | | Dtap/Tdap/Td (1 - | 3 | | | | Tdap) | | | | + + +-------+ + | Vaccine: Zoster (1 | | | | | of 2) | 4 | | | + + +-------+ + | Breast Cancer | | | | | Screening | 9 | | | + + +-------+ + | Vaccine: | | | | | Pneumococcal 65+ (1 | 9 | | | | of 1 - PPSV23) | | | | + + +-------+ + | Adult Annual | | | | | Wellness Visit | 5 | | | + + +-------+ + | Statin Therapy | | | | | (optimal intensity) | 5 | | | + + +-------+ + | Vaccine: Influenza | | | | | (Season Ended) | 0 | | | + + +-------+ + Procedures + +--------+ + + + | Procedure Name | Priori | Date/Time | Associated Diagnosis | Comments | | | ty | | | | + +--------+ + + + | ECG - EXTERNAL SCAN | | 08/27/2019 | | Results for this | | | | 12:00 AM | | procedure are in the | | | | PDT | | results section. | + +--------+ + + + | ECG - EXTERNAL SCAN | | 08/27/2019 | | Results for this | | | | 12:00 AM | | procedure are in the | | | | PDT | | results section. | + +--------+ + + + | IMAGING REPORT - | | 08/27/2019 | | Results for this | | EXTERNAL SCAN | | 12:00 AM | | procedure are in the | | | | PDT | | results section. | + +--------+ + + + from Last 3 Months Results IMAGING REPORT - EXTERNAL SCAN (08/27/2019 12:00 AM PDT) + + + | Narrative | Performed At | + + + | Ordered by an | | | unspecified provider. | | + + + ECG - EXTERNAL SCAN (08/27/2019 12:00 AM PDT)Only the most recent of 2 results within the period is included. + + + | Narrative | Performed At | + + + | Ordered by an | | | unspecified provider. | | + + + from Last 3 Months Insurance + +--------+ +--------+-------+---------+--------+ | Payer | Benefi | Subscriber | Effect | Phone | Address | Type | | | t Plan | ID | [place] | | | | | | / | | Dates | | | | | | Group | | | | | | + +--------+ +--------+-------+---------+--------+ | [employer] | [employer] | [id number] | 07/11/19 | | | Medica | | | HEALTH | | 09-Pre | | | re | | | MDCR | | sent | | | | + +--------+ +--------+-------+---------+--------+ | [facility] | [facility] | [id number] | 04/11/19 | | | Medica | | MEDICARE PPO | HEALTH | | 19-Pre | | | re | | | CARE | | sent | | | | | | MDCR | | | | | | | | PPO | | | | | | + +--------+ +--------+-------+---------+--------+ + +--------+ +--------+ + + | Guarantor Name | Accoun | Relation to | Date | Phone | Billing Address | | | t Type | Patient | of | | | | | | | | | | + +--------+ +--------+ + + | Vianca Porter | Person | Self [birth year] | [address] | | | al/Fam | | 1946 | [phone] | [place] [address] | | | [place]elson | | | 4 (Home) | | + +--------+ +--------+ + + | Vianca Porter | Person | Self | [birth year] | [address] | | | al/Fam | | 1946 | [phone] | [place] [address] | | | [place] | | | 4 (Home) | | + +--------+ +--------+ + + Advance Directives + + + + + | Type | Date Recorded | Patient | Explanation | | | | Algorithm Developer | | + + + + + | Power of | | | | | Sod Farmer | | | | + + + + + | Advance | | | | | Directive | | | | + + + + +
--- OUTSIDE RECORDS SUMMARY | ~2019-10-06 | XMS | Encounter Summary ---
Demographics + + + | Address | [address] | | | [place] [address] | + + + | Home Phone | | + + + | Preferred Language | Unknown | + + + | Marital Status | | + + + | Yarsani Affiliation | Unknown | + + + | Race | Unknown | + + + | Ethnic Group | Unknown | + + + Author + + + | Author | [facility] | | | and [place] | + + + | Organization | [facility] | | | and [place] | + + + | Address | Unknown | + + + | Phone | Unavailable | + + + Support + + + + + | Name | Relationship | Address | Phone | + + + + + | Lolly Conrad | ECON | [address] | | | | | [place], [place] | | | | | [address] | | + + + + + | Chun Porter | ECON | [address] | | | | | [place] | | | | | [address] | | + + + + + Care Team Providers + +------+ + | Care Inspector Air Carrier Name | Role | Phone | + +------+ + PCP | Unavailable | + +------+ + Encounter Details +--------+ + + + + | Date | Type | Department | Care Team | Description | +--------+ + + + + | 01/23/ | Hospital | [facility] | Srikanth Sawyer MD | | | 2008 | Encounter | MED CTR GENERIC OP | [address], [place] | | | | | CONV DEPT [address] | [address] [place], [place] | | | | | [place], | [address] | | | | | [place] [address] | | | | | | [phone] | | | +--------+ + + + [...] [address] | | | | | | [facility] [address] | | | | | | [phone] | | | | | | | | +--------+---------+ + + + documented as of this encounter Visit Diagnoses Not on filedocumented in this encounter"
--- OUTSIDE RECORDS SUMMARY | ~2019-10-06 | XMS | Encounter Summary ---
Demographics + + + | Address | [address] | | | [place] [address] | + + + | Home Phone | | + + + | Preferred Language | Unknown | + + + | Marital Status | | + + + | Sabianist Affiliation | Unknown | + + + | Race | Unknown | + + + | Ethnic Group | Unknown | + + + Author + + + | Author | [facility] | | | and [place] | + + + | Organization | [facility] | | | and [place] | + + + | Address | Unknown | + + + | Phone | Unavailable | + + + Support + + + + + | Name | Relationship | Address | Phone | + + + + + | Lolly Conrad | ECON | [address] | | | | | [place], [place] | | | | | [address] | | + + + + + | Chun Porter | ECON | [address] | | | | | [place] | | | | | [address] | | + + + + + Care Team Providers + +------+ + | Care Wheel Truing Machine Tender Name | Role | Phone | + +------+ + | Kevin Hummel MD | PCP | | + +------+ + Reason for Visit Diagnostic/Screening (Routine) +--------+--------+ + + + + | Status | Reason | Specialty | Diagnoses / | Referred By | Referred To | | | | | Procedures | Contact | Contact | +--------+--------+ + + + + | Closed | | Radiology | Procedures | Provider, | | | | | | MRI Lumbar | Historical, | | | | | | Spine wo | MD Ordoñez | | | | | | Contrast | [address] | | | | | | | [place] | | | | | | | [address] | | +--------+--------+ + + + + Encounter Details +--------+ + + + + | Date | Type | Department | Care Team | Description | +--------+ + + + + | 06/06/ | Imaging | [facility] | Ho, | | | 2017 | Exam | MED CTR EXTERNAL | MD Smita Bright | | | | | IMAGING [address] | [address] | | | | | [address] [place] | [place] [address] | | | | | [place] [address] | | | | | | [phone] | | | +--------+ + + + [...] [address] | | | | | | [place] [address] | | | | | | [phone] | | | | | | | | +--------+---------+ + + + documented as of this encounter Procedures + +--------+ + + + | Procedure Name | Priori | Date/Time | Associated Diagnosis | Comments | | | ty | | | | + +--------+ + + + | MRI LUMBAR SPINE WO | Routin | 05/30/2017 | | Results for this | | CONTRAST | e | 2:05 PM | | procedure are in the | | | | PST | | results section. | + +--------+ + + + documented in this encounter Results MRI Lumbar Spine wo Contrast (05/30/2017 2:05 PM PST) + + | Specimen | + + | | + + + + + | Narrative | Performed At | + + + | External films for comparison only - no result from [place]. | [facility] | + + + + +---------+ + + | Performing | Address | City/State/Zipcode | Phone Number | | Organization | | | | + +---------+ + + | [facility] | | | | + +---------+ + + documented in this encounter Visit Diagnoses Not on filedocumented in this encounter"
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
--- OUTSIDE RECORDS SUMMARY | ~2019-10-06 | XMS | Encounter Summary ---
Demographics + + + | Address | [address] | | | [place] [address] | + + + | Home Phone | | + + + | Preferred Language | Unknown | + + + | Marital Status | | + + + | Voodoo Affiliation | Unknown | + + + | Race | Unknown | + + + | Ethnic Group | Unknown | + + + Author + + + | Author | [facility] | | | and [place] | + + + | Organization | [facility] | | | and [place] | + + + | Address | Unknown | + + + | Phone | Unavailable | + + + Support + + + + + | Name | Relationship | Address | Phone | + + + + + | Lolly Conrad | ECON | [address] | | | | | [place], [place] | | | | | [address] | | + + + + + | Chun Porter | ECON | [address] | | | | | [place] | | | | | [address] | | + + + + + Care Team Providers + +------+ + | Care Svp Digital [employer] Cooking Name | Role | Phone | + +------+ + PCP | Unavailable | + +------+ + Encounter Details +--------+ + + + + | Date | Type | Department | Care Team | Description | +--------+ + + + + | 02/10/ | Hospital | [facility] | | | | 1999 | Encounter | [facility] | | | | | | CONV DEPT [address] | | | | | | [place], | | | | | | [place] [address] | | | | | | [phone] | | | +--------+ + + + [...] | 10/10/ | Office | Cardiology | Charisse Wiseman | | | 2020 | Visit | | [address] | | | | | | [address] | | | | | | [place] [address] | | | | | | [phone] | | | | | | | | +--------+---------+ + + + documented as of this encounter Visit Diagnoses Not on filedocumented in this encounter"
--- OUTSIDE RECORDS SUMMARY | ~2019-10-06 | XMS | Clinical Summary ---
Demographics + + + | Address | [address] | | | [place] [address] | + + + | Home Phone | | + + + | Preferred Language | Unknown | + + + | Marital Status | | + + + | Anglican Affiliation | Unknown | + + + | Race | White | + + + | Ethnic Group | Not or | + + + Author + + + | Author | [facility] | + + + | Organization | [facility] | + + + | Address | Unknown | + + + | Phone | Unavailable | + + + Support + + + + + | Name | Relationship | Address | Phone | + + + + + | Chun Porter | ECON | [address] | | | | | [place] | | | | | [address] | | + + + + + | Katrina Huerta | ECON | Unknown | | + + + + + Care Team Providers + +------+ + | Care Information And Referral Director Name | Role | Phone | + +------+ + | Kevin Hummel MD | PCP | | + +------+ + Source Comments MORAIMAHILLARY is fully live on both EpicCare Ambulatory and EpicCare InPatient.[facility] Allergies + + + + + + | Active Allergy | Reactions | Severity | Noted | Comments | | | | | Date | | + + + + + + | Penicillin G | | | 05/05/19 | | | | | | 11 | | + + + + + + | Oxycodone-Acetaminop | | | 05/05/19 | | | hen | | | 11 | | + + + + + + Medications + + + +---------+------+------+-------+ | Medication | Sig | Dispensed | Refills | Star | End | Statu | | | | | | t | Date | s | | | | | | Date | | | + + + +---------+------+------+-------+ | levothyroxine | Take 112 mcg by | | 0 | | | Activ | | (SYNTHROID) 112 mcg | mouth once daily. | | | | | e | | Oral Tablet | | | | | | | + + + +---------+------+------+-------+ | potassium chloride | Take 20 mEq by mouth | | 0 | | | Activ | | SR (KLOR-CON M20) | once daily. | | | | | e | | 20 mEq Oral Tab | | | | | | | | Sust.Rel. | | | | | | | | Particle/Crystal | | | | | | | + + + +---------+------+------+-------+ | esomeprazole | Take 40 mg by mouth | | 0 | | | Activ | | (NEXIUM) 40 mg Oral | once daily in the | | | | | e | | Capsule, Delayed | morning. | | | | | | | Release(E.C.) | | | | | | | + + + +---------+------+------+-------+ | CYCLOSPORINE | Instill into both | | 0 | 01/2 | | Activ | | (RESTASIS OPHT) | eyes two times | | | 5/20 | | e | | | daily. | | | 11 | | | + + + +---------+------+------+-------+ Active Problems + + + | Problem | Noted Date | + + + | Epiretinal membrane | 05/11/2010 | + + + Family History + + +------+ + | Medical History | Relation | Name | Comments | + + +------+ + | Cancer | Father | | of rectal cancer | + + +------+ + | Cataracts | Father | | | + + +------+ + | Diabetes | Maternal | | | | | Grandfath | | | | | er | | | + + +------+ + | Diabetes | Maternal | | | | | Grandmoth | | | | | er | | | + + +------+ + | Heart Disease | Maternal | | of heart attack | | | Grandmoth | | | | | er | | | + + +------+ + | Heart Disease | Mother | | of heart attack | + + +------+ + + +------+--------+ + | Relation | Name | Status | Comments | + +------+--------+ + | Father | | | | + +------+--------+ + | Maternal Grandfather | | | | + +------+--------+ + | Maternal Grandmother | | | | + +------+--------+ + | Mother | | | | + +------+--------+ + Social History + +-------+ +--------+------+ | [...] | + + Last Filed Vital Signs Not on file Plan of Treatment + + + + + | Health Maintenance | Due Date | Last Done | Comments | + + + + + | Pneumococcal | | | | | vaccination (1 of 2 | 9 | | | | - PCV13) | | | | + + + + + | Influenza (Flu) | | | | | vaccination (#1) | 9 | | | + + + + + Results Not on filefrom Last 3 Months"
--- OUTSIDE RECORDS SUMMARY | ~2019-10-06 | XMS | Encounter Summary ---
Demographics + + + | Address | [address] | | | [place] [address] | + + + | Home Phone | | + + + | Preferred Language | Unknown | + + + | Marital Status | | + + + | Baptism Affiliation | Unknown | + + + | Race | Unknown | + + + | Ethnic Group | Unknown | + + + Author + + + | Author | [facility] | | | and [place] | + + + | Organization | [facility] | | | and [place] | + + + | Address | Unknown | + + + | Phone | Unavailable | + + + Support + + + + + | Name | Relationship | Address | Phone | + + + + + | Lolly Conrad | ECON | [address] | | | | | [place], [place] | | | | | [address] | | + + + + + | Chun Porter | ECON | [address] | | | | | [place] | | | | | [address] | | + + + + + Care Team Providers + +------+ + | Care Ob/Gyn Nurse Name | Role | Phone | + +------+ + PCP | Unavailable | + +------+ + Encounter Details +--------+ + + + + | Date | Type | Department | Care Team | Description | +--------+ + + + + | 04/30/ | Hospital | [facility] | Srikanth Sawyer MD | | | 2013 | Encounter | MED [facility] OP | [address], [place] | | | | | [address] | [address] [place], [place] | | | | | [place], [place] | [address] | | | | | [address] | | | | | | [phone] | | | +--------+ + + + [...] documented as of this encounter Miscellaneous Notes Op Note - Srikanth Sawyer MD - 05/04/2013 8:06 AM [place], [place] [address] Patient Name: JESÚS PORTER Provider: Srikanth Sawyer MD Unit #: [id number] Location: [facility] : 1945 DATE: 05/04/2013 PROCEDURE A 48-hour Bowden study REASON FOR STUDY: Gastroesophageal reflux symptoms. Normal study. DeMeester score on day #1 of 0.5, day #2 of 0.7 with normal being less than 14.72. SYMPTOM COMPLEX SCORE: The patient complained of heartburn, chest pain throughout the enti re 48 hours but there is no correlation with pH less than 4. IMPRESSION NORMAL STUDY. RECOMMENDATIONS: Impedance esophageal study at a tertiary center for evaluation of possibl e non-acid reflux. DICTATED BY: Srikanth Sawyer MD Gastroenterology JOB #: [id number] EXT JOB #:[id number] <<Signature on File>> Srikanth Sawyer MD 0922 <Electronically signed by Srikanth Sawyer MD> p Note - Lincoln Sawyer MD - 04/30/2013 9:52 [place] [address] Patient Name: JESÚS PORTER Provider: Srikanth Sawyer MD Unit #: [id number] Location: [facility] #: [id number] : 1945 Gastroenterology Patient Name: Jesús Porter Procedure Date: 04/30/2013 9:52 AM Date of : 1945 Admit Type: Outpatient Age: 67 Room: Endo Room 1 Gender: Female Note Status: Finalized Attending MD: Srikanth Sawyer MD Procedure: Upper GI endoscopy Indications: Suspected esophageal reflux, For therapy of esophageal reflux, Failure to respond to medical treatment Providers: Joaquin Sawyer MD, Kerrie Pineda RN, Madiha Sommer, Master Planner Referring MD: Kevin Hummel MD (Referring MD) Medicines: Midazolam 2 mg IV, Meperidine 50 mg IV, Cetacaine spray, Oxygen 4 liters/min nasocannula Procedure: Pre-Anesthesia Assessment: - Prior to the procedure, a History and Physical was performed, and patient medications, allergies and sensitivities were reviewed. The patient's tolerance of previous anesthesia was reviewed. - Prior to the procedure, a History and Physical was performed, and patient medications and allergies were reviewed. The patient is competent. The risks and benefits of the procedure and the sedation options and risks were discussed with the patient. All questions were answered and informed consent was obtained. Patient identification and proposed procedure were verified by the physician, the nurse and the dealer support technician in the endoscopy suite. Mental Status Examination: normal. Airway Examination: normal oropharyngeal airway and neck mobility and Mallampati Class II (the uvula but not tonsillar pillars visualized). Respiratory Examination: clear to auscultation. CV Examination: normal. Prophylactic Antibiotics: The patient does not require prophylactic antibiotics. Prior Anticoagulants: The patient has taken no previous anticoagulant or antiplatelet agents. ASA Grade Assessment: II - A patient with mild systemic disease. After reviewing the risks and benefits, the patient was deemed in satisfactory condition to undergo the procedure. The anesthesia plan was to use moderate sedation / analgesia (conscious sedation). Immediately prior to administration of medications, the patient was re-assessed for adequacy to receive sedatives. The heart rate, respiratory rate, oxygen saturations, blood pressure, adequacy of pulmonary ventilation, and response to care were monitored throughout the procedure. The physical status of the patient was re-assessed after the procedure. - Immediately prior to administration of medications, the patient was re-assessed for adequacy to receive sedatives. - The heart rate, respiratory rate, oxygen saturations, blood pressure, adequacy of pulmonary ventilation, and response to care were monitored throughout the procedure. - The physical status of the patient was re-assessed after the procedure. After obtaining informed consent, the endoscope was passed under direct vision. Throughout the procedure, the patient's blood pressure, pulse, and oxygen saturations were monitored continuously. The endoscope was introduced through the mouth, and advanced to the third part of duodenum. The upper GI endoscopy was accomplished without difficulty. The patient tolerated the procedure well. Findings: The cricopharyngeus, upper third of the esophagus, middle third of the esophagus and lower third of the esophagus were normal. The Z-line was irregular and was found 39 cm from the incisors. Biopsies were taken with a cold forceps for histology. Verification of patient identification for the specimen was done. Estimated blood loss was minimal. A lax lower esophageal sphincter was found. The BOWDEN capsule with delivery system was introduced through the mouth and advanced into the esophagus, such that the BOWDEN pH capsule was positioned 37 cm from the incisors, which was 3 cm proximal to the EG junction. The BOWDEN pH capsule was then deployed and attached to the esophageal mucosa. The delivery system was then withdrawn. Endoscopy was utilized for probe placement and diagnostic evaluation. Suspect gastroparesis due to absence of peristalsis. Localized mild inflammation characterized by erythema and friability was found in the prepyloric region of the stomach. Biopsies were taken with a cold forceps for histology. Biopsies were taken with a cold forceps for Helicobacter pylori testing using CLOtest. Verification of patient identification for the specimen was done. Estimated blood loss was minimal. The duodenal bulb was normal. Diffuse atrophic mucosa was found in the first part of the duodenum, in the second part of the duodenum, in the area of the papilla and in the third part of the duodenum. Biopsies were taken with a cold forceps for histology. Verification of patient identification for the specimen was done. Estimated blood loss was minimal. The retroflexed view confirmed previous findings, Impression: - Normal cricopharyngeus, upper third of esophagus, middle third of esophagus and lower third of esophagus. - Z-line irregular, 39 cm from the incisors. Biopsied. - Lax lower esophageal sphincter. - Gastroparesis. - Gastritis. Biopsied. - Normal duodenal bulb. - Duodenal mucosal atrophy. Biopsied. - The retroflexed view confirmed previous findings, - The BOWDEN pH capsule was deployed. Recommendation: - Discharge patient to home (ambulatory). - Return to previous diet today. - Await pathology results. - Return to primary care physician as previously scheduled. - Telephone GI clinic for pathology results in 1 week. - Telephone GI clinic for study results in 2 weeks. Srikanth Sawyer MD 04/30/2013 10:47 AM This report has been signed electronically. Number of Addenda: 0 Note Initiated On: 04/30/2013 9:52 AM [facility], [address] [place] [address] Srikanth Sawyer MD 1047 documented in this e ncounter Plan of Treatment +--------+---------+ + + + | Date | Type | Specialty | Care Team | Description | +--------+---------+ + + + | 10/10/ | Office | Cardiology | Virginie Wiseman | | | 2019 | Visit | | [address] | | | | | | [address] | | | | | | [place] [address] | | | | | | [phone] | | | | | | | | +--------+---------+ + + + documented as of this encounter Procedures + +--------+ + + + | Procedure Name | Priori | Date/Time | Associated Diagnosis | Comments | | | ty | | | | + +--------+ + + + | HELICOBACTER PYLORI | Routin | 04/30/2013 | | Results for this | | BIOPSY | e | 12:53 PM | | procedure are in the | | | | PST | | results section. | + +--------+ + + + | HELICOBACTER PYLORI | Routin | 04/30/2013 | | Results for this | | BIOPSY | e | 10:25 AM | | procedure are in the | | | | PST | | results section. | + +--------+ + + + documented in this encounter Results Helicobactor pylori Biopsy (04/30/2013 12:53 PM PST) + + + + + + | Component | Value | Ref Range | Performed | Pathologist | | | | | At | Signature | + + + + + + | GASTRIC | Negative for Urease | | [facility] | | | [facility] | | | [facility] | | | UREASE TEST | | | MEDICAL | | | | | | CENTER - | | | | | | LABORATORY | | + + + + + + + + | Specimen | + + | | + + + + + + + | Performing | Address | City/State/Zipcode | Phone Number | | Organization | | | | + + + + + | [facility] | [address] | [place], [place] | [phone] | | [facility] | | [address] | | | - LABORATORY | | | | + + + + + | [facility] | [address] | [place], [place] | | | [facility] | | [address] | | | - LABORATORY | | | | + + + + + Helicobactor pylori Biopsy (04/30/2013 10:25 AM PST) + + + + + + | Component | Value | Ref Range | Performed | Pathologist | | | | | At | Signature | + + + + + + | GASTRIC | [facility] BIOPSY: | | [facility] | | | BIOPSY | Negative for Urease | | [facility] | | | UREASE TEST | | | MEDICAL | | | | | | CENTER - | | | | | | LABORATORY | | + + + + + + + + | Specimen | + + | Soft tissue sample | | (specimen) - Other | + + + + + | Narrative | Performed At | + + + | Collect By: Nurse Comment: biopsy | [facility] | | | [facility] | | | [facility] | | | - LABORATORY | + + + + + + + + | Performing | Address | City/State/Zipcode | Phone Number | | Organization | | | | + + + + + | [facility] | [address] | [place] | [phone] | | [facility] | | [facility] | | | - LABORATORY | | | | + + + + + | [facility] | [address] | [place] | | | [facility] | | [address] [place] [address] | | | - LABORATORY | | | | + + + + + documented in this encounter Visit Diagnoses Not on filedocumented in this encounter"
--- OUTSIDE RECORDS SUMMARY | ~2019-10-06 | XMS | Encounter Summary ---
Demographics + + + | Address | [address] | | | [place] [address] | + + + | Home Phone | | + + + | Preferred Language | Unknown | + + + | Marital Status | | + + + | Christianity Affiliation | Unknown | + + + | Race | Unknown | + + + | Ethnic Group | Unknown | + + + Author + + + | Author | [facility] | | | and [place] | + + + | Organization | [facility] | | | and [place] | + + + | Address | Unknown | + + + | Phone | Unavailable | + + + Support + + + + + | Name | Relationship | Address | Phone | + + + + + | Lolly Conrad | ECON | [address] | | | | | [place], [place] | | | | | [address] | | + + + + + | Chun Porter | ECON | [address] | | | | | [place] | | | | | [address] | | + + + + + Care Team Providers + +------+ + | Care Manager Star Name | Role | Phone | + [...] | | [address] [place] | [phone] | | | | | [address] | | | | | | [phone] | | | +--------+ + + + [...] [address] | | | | | | [place] [address] | | | | | | [phone] | | | | | | | | +--------+---------+ + + + documented as of this encounter Visit Diagnoses Not on filedocumented in this encounter"
--- OUTSIDE RECORDS SUMMARY | ~2019-10-06 | XMS | Encounter Summary ---
Demographics + + + | Address | [address] | | | [place] [address] | + + + | Home Phone | | + + + | Preferred Language | Unknown | + + + | Marital Status | | + + + | Islam Affiliation | Unknown | + + + | Race | Unknown | + + + | Ethnic Group | Unknown | + + + Author + + + | Author | [facility] | | | and [place] | + + + | Organization | [facility] | | | and [place] | + + + | Address | Unknown | + + + | Phone | Unavailable | + + + Support + + + + + | Name | Relationship | Address | Phone | + + + + + | Lolly Conrad | ECON | [address] | | | | | [place], [place] | | | | | [address] | | + + + + + | Chun Porter | ECON | [address] | | | | | [place] | | | | | [address] | | + + + + + Care Team Providers + +------+ + | Care Claims Account Manager Name | Role | Phone | + +------+ + | Kevin Hummel MD | PCP | | + +------+ + Encounter Details +--------+ + + + + | Date | Type | Department | Care Team | Description | +--------+ + + + + | 07/05/ | Hospital | [facility] | Bud Madden, | Arthritis; Chronic | | 2018 | Encounter | [facility] | [address] | pain of right thumb | | | | [address] | [place] [address] | | | | | [place], [place] | [phone] | | | | | [address] | | | | | | [phone] | | | +--------+ + + + [...] 07/05/171625 Date of Service: 07/05/171625 Status: Signed Turntable Engineer: Bud Madden MD (Physician) [facility] Service: Orthopedic Surgery Brief Post-op Discharge Note DISCHARGE DIAGNOSES: Pre-operative Diagnosis: Right thumb painful hardware, right thumb CMC arthritis, right th umb deformity Post-operative Diagnosis: Same Procedure(s): 1. Right thumb CMC arthroplasty, revision, CPT 56575 2. Right thumb tendon transfer for unstable and deformed joint at the level of the CMC maxwell int, CPT 60175 3. Right thumb hardware removal, deep and complicated, CPT 76801 Surgeon: Bud Madden MD Environmental Associate(s): None Anesthesia: General LMA Estimated Blood Loss: [...] No Order Follow up: Shelton Hummel MD [address] [place] [address] [facility] [id number] Medication List START taking these medications ondansetron [...] 07/05/171829 Date of Service: 07/05/171829 Status: Signed Turntable Engineer: Mazin Gandara RN (Registered Nurse) Discharge instructions [...] 1431 Date of Service: 07/05/171429 Status: Signed Turntable Engineer: Bud Madden MD (Physician) CHIEF COMPLAINT: Right [...] Note by Bud Madden MD at 07/05/17 5691 Author: Bud Madden MD Service: Orthopedic Surgery Author Type: Physician Filed: 07/06/17 5184 Date of Service: 07/05/17 1627 Status: Signed Turntable Engineer: Bud Madden MD (Physician) Related Notes: Original Note by Bud Madden MD (Physician) filed at 07/05/[address] [facility] Service: Orthopedic Surgery Operative Note Pre-operative Diagnosis: Right thumb painful hardware, right thumb CMC arthritis, right th umb deformity Post-operative Diagnosis: Same Procedure(s): 1. Right thumb CMC arthroplasty, revision, CPT 55107 2. Right thumb tendon transfer for unstable and deformed joint at the level of the CMC maxwell int, CPT 24831 3. Right thumb hardware removal, deep and complicated, CPT 92545 Surgeon: Bud Madden MD Environmental Associate(s): None Anesthesia: General LMA Estimated Blood Loss: [...] identified the FCR tendon, sectioned it, and mackenzie t into my distal wound. I drilled [...] 07/05/171622 Date of Service: 07/05/171620 Status: Signed Turntable Engineer: Bud Madden MD (Physician) [facility] Service: Orthopedic Surgery Brief Op Note Pre-operative Diagnosis: Right thumb painful hardware, right thumb CMC arthritis, right th umb deformity Post-operative Diagnosis: Same Procedure(s): 1. Right thumb CMC arthroplasty, revision, CPT 45113 2. Right thumb tendon transfer for unstable and deformed joint at the level of the CMC maxwell int, CPT 46992 3. Right thumb hardware removal, deep and complicated, CPT 32842 Surgeon: Bdu Madden MD Environmental Associate(s): None Anesthesia: General LMA Estimated Blood Loss: [...] [address] | | | | | | [place] [address] | | | | | | [phone] | | | | | | | | +--------+---------+ + + + documented as of this encounter Visit Diagnoses + + | Diagnosis | + + | Arthritis Arthropathy, unspecified, site unspecified | + + | Chronic pain of right thumb | + + documented in this encounter
--- OUTSIDE RECORDS SUMMARY | ~2019-10-06 | XMS | Encounter Summary ---
Demographics + + + | Address | [address] | | | [place] [address] | + + + | Home Phone | | + + + | Preferred Language | Unknown | + + + | Marital Status | | + + + | Hindu Affiliation | Unknown | + + + | Race | Unknown | + + + | Ethnic Group | Unknown | + + + Author + + + | Author | [facility] | | | and [place] | + + + | Organization | [facility] | | | and [place] | + + + | Address | Unknown | + + + | Phone | Unavailable | + + + Support + + + + + | Name | Relationship | Address | Phone | + + + + + | Lolly Conrad | ECON | [address] | | | | | [place], [place] | | | | | [address] | | + + + + + | Chun Porter | ECON | [address] | | | | | [place] | | | | | [address] | | + + + + + Care Team Providers + +------+ + | Care Plant Safety Engineer Name | Role | Phone | + [...] | [place], [place] | [place] [address] | | | | | [address] | [phone] | | | | | [phone] | | | +--------+ + + + [...] | | | | | [place] [address] | | | | | | [phone] | | | | | | | | +--------+---------+ + + + documented as of this encounter Visit Diagnoses Not on filedocumented in this encounter"
--- OUTSIDE RECORDS SUMMARY | ~2019-10-06 | XMS | Encounter Summary ---
Demographics + + + | Address | [address] | | | [place] [address] | + + + | Home Phone | | + + + | Preferred Language | Unknown | + + + | Marital Status | | + + + | Religion Affiliation | Unknown | + + + | Race | Unknown | + + + | Ethnic Group | Unknown | + + + Author + + + | Author | [facility] | | | and [place] | + + + | Organization | [facility] | | | and [place] | + + + | Address | Unknown | + + + | Phone | Unavailable | + + + Support + + + + + | Name | Relationship | Address | Phone | + + + + + | Lolly Conrad | ECON | [address] | | | | | [place], [place] | | | | | [address] | | + + + + + | Chun Porter | ECON | [address] | | | | | [place] | | | | | [address] | | + + + + + Care Team Providers + +------+ + | Care Light Rail Signal Technician Name | Role | Phone | + +------+ + PCP | Unavailable | + +------+ + Encounter Details +--------+ + + + + | Date | Type | Department | Care Team | Description | +--------+ + + + + | 02/10/ | Hospital | [facility] | | | | 1999 | Encounter | [facility] GENER[facility] OP | | | | | | CONV DEPT [address] | | | | | | [place], | | | | | | [place] [address] | | | | | | [phone] | | | +--------+ + + + [...] | | | | | [place] [address] | | | | | | [phone] | | | | | | | | +--------+---------+ + + + documented as of this encounter Visit Diagnoses Not on filedocumented in this encounter"
--- OUTSIDE RECORDS SUMMARY | ~2019-10-06 | XMS | Encounter Summary ---
Demographics + + + | Address | [address] | | | [place] [address] | + + + | Home Phone | | + + + | Preferred Language | Unknown | + + + | Marital Status | | + + + | Congregation Affiliation | Unknown | + + + | Race | Unknown | + + + | Ethnic Group | Unknown | + + + Author + + + | Author | [facility] | | | and [place] | + + + | Organization | [facility] | | | and [place] | + + + | Address | Unknown | + + + | Phone | Unavailable | + + + Support + + + + + | Name | Relationship | Address | Phone | + + + + + | Lolly Conrad | ECON | [address] | | | | | [place], [place] | | | | | [address] | | + + + + + | Chun Porter | ECON | [address] | | | | | [place] | | | | | [address] | | + + + + + Care Team Providers + +------+ + | Care Shoe Worker Name | Role | Phone | + [...] [address] | [address] [place], [place] | location, | | | | [place], [place] | [address] | unspecified back | | | | [address] | | pain laterality, | | | | [phone] | | unspecified | | | | [...] [address] | | | | | | [place] [address] | | | | | | [phone] | | | | | | | | +--------+---------+ + + + documented as of this encounter Results XR Lumbar [...] | Procedure Note | + + | Itmoteo, Rad Results In - 08/30/2017 10:41 AM [...]
--- OUTSIDE RECORDS SUMMARY | ~2019-10-06 | XMS | Encounter Summary ---
Demographics + + + | Address | [address] | | | [place] [address] | + + + | Home Phone | | + + + | Preferred Language | Unknown | + + + | Marital Status | | + + + | Congregation Affiliation | Unknown | + + + | Race | Unknown | + + + | Ethnic Group | Unknown | + + + Author + + + | Author | [facility] | | | and [place] | + + + | Organization | [facility] | | | and [place] | + + + | Address | Unknown | + + + | Phone | Unavailable | + + + Support + + + + + | Name | Relationship | Address | Phone | + + + + + | Lolly Conrad | ECON | [address] | | | | | [place], [place] | | | | | [address] | | + + + + + | Chun Porter | ECON | [address] | | | | | [place] | | | | | [address] | | + + + + + Care Team Providers + +------+ + | Care Battery Technician Name | Role | Phone | + +------+ + | Zackary Tee MD | PCP | | + +------+ + Encounter Details +--------+ + + + + | Date | Type | Department | Care Team | Description | +--------+ + + + + | 08/30/ | Hospital | [facility] | Buck Workman, | Back pain, | | 2018 | Encounter | MED CTR XRAY [address] | DO [address] | unspecified back | | | | [place] | [address] [place], [place] | location, | | | | [place] [address] | [address] | unspecified back | | | | [phone] | | pain laterality, | | | [...] | | 0 | | | | [id number] | | | | | | | [...] FISHER | | | | | | [place] [address] | | | | | | [phone] | | | | | | | [...]
--- OUTSIDE RECORDS SUMMARY | ~2019-10-06 | XMS | Encounter Summary ---
Demographics + + + | Address | [address] | | | [place] [address] | + + + | Home Phone | | + + + | Preferred Language | Unknown | + + + | Marital Status | | + + + | Denominational Affiliation | Unknown | + + + | Race | White | + + + | Ethnic Group | Not or | + + + Author + + + | Author | [facility] | + + + | Organization | [facility] | + + + | Address | Unknown | + + + | Phone | Unavailable | + + + Support + + + + + | Name | Relationship | Address | Phone | + + + + + | Chun Porter | ECON | [address] | | | | | [place] | | | | | [address] | | + + + + + | Katrina Huerta | ECON | Unknown | | + + + + + Care Team Providers + +------+ + | Care Real Estate Lawyer Name | Role | Phone | + [...] membrane | | 2010 | Visit | [place] | | | | | | Photography at | | | | | | [facility] [address] | | | | | [address] | | | | | | Eye [place], [address]th | | | | | | floor [place], [place] | | | | | | [address] | | | +--------+---------+ + + + [...] PSTCarelan Sydnee Porter was seen in the [facility] te Photography/Ultrasound Department today, 05/05/2010, for fluorescein, fundus photography a nd OCT ou. ps documented in this enc ounter Plan of Treatment Not on filedocumented as of this encounter Visit Diagnoses + + | Diagnosis | + + | Epiretinal membrane Macular puckering of retina | + + documented in this encounter"
--- OUTSIDE RECORDS SUMMARY | ~2019-10-06 | XMS | Encounter Summary ---
Demographics + + + | Address | [address] | | | [place] [address] | + + + | Home Phone | | + + + | Preferred Language | Unknown | + + + | Marital Status | | + + + | Sabianism Affiliation | Unknown | + + + | Race | Unknown | + + + | Ethnic Group | Unknown | + + + Author + + + | Author | [facility] | | | and [place] | + + + | Organization | [facility] | | | and [place] | + + + | Address | Unknown | + + + | Phone | Unavailable | + + + Support + + + + + | Name | Relationship | Address | Phone | + + + + + | Lolly Conrad | ECON | [address] | | | | | [place], [place] | | | | | [address] | | + + + + + | Chun Porter | ECON | [address] | | | | | [place] | | | | | [address] | | + + + + + Care Team Providers + +------+ + | Care As400 Programmer Name | Role | Phone | + +------+ + PCP | Unavailable | + +------+ + Encounter Details +--------+ + + + + | Date | Type | Department | Care Team | Description | +--------+ + + + + | 10/04/ | Hospital | [facility] | Conversion | | | 1998 | Encounter | HOSPITAL EMERGENCY | Transaction, | | | | | CENTER [address] | Provider Unknown | | | | | [address] [place], [place] | | | | | | [address] | (Fax) | | | | | [phone] | | | +--------+ + + + [...] [address] | | | | | | [place] [address] | | | | | | [phone] | | | | | | | | +--------+---------+ + + + documented as of this encounter Visit Diagnoses Not on filedocumented in this encounter"
--- OUTSIDE RECORDS SUMMARY | ~2019-10-06 | XMS | Encounter Summary ---
Demographics + + + | Address | [address] | | | [place] [address] | + + + | Home Phone | | + + + | Preferred Language | Unknown | + + + | Marital Status | | + + + | Oriental Orthodox Affiliation | Unknown | + + + | Race | Unknown | + + + | Ethnic Group | Unknown | + + + Author + + + | Author | [facility] | | | and [place] | + + + | Organization | [facility] | | | and [place] | + + + | Address | Unknown | + + + | Phone | Unavailable | + + + Support + + + + + | Name | Relationship | Address | Phone | + + + + + | Lolly Conrad | ECON | [address] | | | | | [place], [place] | | | | | [address] | | + + + + + | Chun Porter | ECON | [address] | | | | | [place] | | | | | [address] | | + + + + + Care Team Providers + +------+ + | Care Cash Office Worker Name | Role | Phone | [...] reflux | [address] | [address] [place], | | | | | Cough | [place], [place] | [address] | | | | | Dysphagia, | [address] [place] | [place], | | | | | unspecified( | [place], [place] | [place] [address] | | | | | [phone]) | [address] | Phone: | | | | | Globus | Phone: | [phone] | | | | | sensation | [phone] | Fax: | | | | | Procedures | Fax: | [phone] | | | | | [place] | [phone] | | | | | | ESOPHAGOGAST | | | | | | | RODUODENOSCO | | | | | | | PY TRANSORAL | | | | | | | DIAGNOSTIC | | | | | | | [place] EDG | | | | | | | TRANSORAL | | | | | | | BIOPSY | | | | | | | SINGLE/MULTI | | | | | | | PLE [place] GERD | | | | | | [...] + + | 04/12/ | Telephone | [facility] | Srikanth Sawyer MD | Appointment | | 2013 | | GASTROENTEROLOGY | [address] | (schedule endoscopy | | | | [address] | [address] | with casas study) | | | | [address] | [address] | | | | | [address] | | | | | | [phone] | | | +--------+ + + + [...] an endoscopy with casas study, scheduled for [place] [address] with 0900 check in time, will mail [...] ed in this encounter Plan of Treatment +--------+---------+ + + + | Date | Type | Specialty | Care Team | Description | +--------+---------+ + + + | 10/10/ | Office | Cardiology | Ivone Virginie | | | 2019 | Visit | | [address] | | | | | | [place] | | | | | | [place] [address] | | | | | | [phone] | | | | | | | | +--------+---------+ + + + + + +--------+ + + | Name [...]
--- OUTSIDE RECORDS SUMMARY | ~2019-10-06 | XMS | Encounter Summary ---
Demographics + + + | Address | [address] | | | [place] [address] | + + + | Home Phone | | + + + | Preferred Language | Unknown | + + + | Marital Status | | + + + | Temple Affiliation | Unknown | + + + | Race | Unknown | + + + | Ethnic Group | Unknown | + + + Author + + + | Author | [facility] | | | and [place] | + + + | Organization | [facility] | | | and [place] | + + + | Address | Unknown | + + + | Phone | Unavailable | + + + Support + + + + + | Name | Relationship | Address | Phone | + + + + + | Lolly Conrad | ECON | [address] | | | | | [place], [place] | | | | | [address] | | + + + + + | Chun Porter | ECON | [address] | | | | | [place] | | | | | [address] | | + + + + + Care Team Providers + +------+ + | Care Electronic Components Assembler Name | Role | Phone | + +------+ + PCP | Unavailable | + +------+ + Encounter Details +--------+ + + + + | Date | Type | Department | Care Team | Description | +--------+ + + + + | 10/04/ | Hospital | [facility] | Conversion | | | 1998 | Encounter | HOSPITAL EMERGENCY | Transaction, | | | | | CENTER [address] | Provider Unknown | | | | | [address] [place], [place] | | | | | | [address] | (Fax) | | | | | [phone] | | | +--------+ + + + [...] [address] | | | | | | [place] [address] | | | | | | [phone] | | | | | | | | +--------+---------+ + + + documented as of this encounter Visit Diagnoses Not on filedocumented in this encounter"
--- OUTSIDE RECORDS SUMMARY | ~2019-10-06 | XMS | Encounter Summary ---
Demographics + + + | Address | [address] | | | [place] [address] | + + + | Home Phone | | + + + | Preferred Language | Unknown | + + + | Marital Status | | + + + | Pentecostalism Affiliation | Unknown | + + + | Race | Unknown | + + + | Ethnic Group | Unknown | + + + Author + + + | Author | [facility] | | | and [place] | + + + | Organization | [facility] | | | and [place] | + + + | Address | Unknown | + + + | Phone | Unavailable | + + + Support + + + + + | Name | Relationship | Address | Phone | + + + + + | Lolly Conrad | ECON | [address] | | | | | [place], [place] | | | | | [address] | | + + + + + | Chun Porter | ECON | [address] | | | | | [place] | | | | | [address] | | + + + + + Care Team Providers + +------+ + | Care Lead Vulcanizing Operator Name | Role | Phone | [...] [address] | [address] [place], [place] | location, | | | | [place], [place] | [address] | unspecified back | | | | [address] | | pain laterality, | | | | [phone] | | unspecified | | | | [...] [address] | | | | | | [place] [address] | | | | | | [phone] | | | | | | | [...]
--- OUTSIDE RECORDS SUMMARY | ~2019-10-06 | XMS | Encounter Summary ---
Demographics + + + | Address | [address] | | | [place] [address] | + + + | Home Phone | | + + + | Preferred Language | Unknown | + + + | Marital Status | | + + + | Restoration Affiliation | Unknown | + + + | Race | Unknown | + + + | Ethnic Group | Unknown | + + + Author + + + | Author | [facility] | | | and [place] | + + + | Organization | [facility] | | | and [place] | + + + | Address | Unknown | + + + | Phone | Unavailable | + + + Support + + + + + | Name | Relationship | Address | Phone | + + + + + | Lolly Conrad | ECON | [address] | | | | | [place], [place] | | | | | [address] | | + + + + + | Chun Porter | ECON | [address] | | | | | [place] | | | | | [address] | | + + + + + Care Team Providers + +------+ + | Care Heat And Frost Insulator Name | Role | Phone | + +------+ + | Zackary Tee MD | PCP | | + +------+ + Encounter Details +--------+ + + + + | Date | Type | Department | Care Team | Description | +--------+ + + + + | 11/07/ | Orders Only | [facility] | Provider, | | | 2019 | | SYSTEM GENERIC OP | [address] | | | | | CONVERSION [address] | [address] | | | | | [address] [place], [place] | [place] [address] | | | | | [address] | | | | | | [phone] | | | +--------+ + + + [...] [address] | | | | | | [place] [address] | | | | | | [phone] | | | | | | | | +--------+---------+ + + + documented as of this encounter Visit Diagnoses Not on filedocumented in this encounter"
--- OUTSIDE RECORDS SUMMARY | ~2019-10-06 | XMS | Encounter Summary ---
Demographics + + + | Address | [address] | | | [place] [address] | + + + | Home Phone | | + + + | Preferred Language | Unknown | + + + | Marital Status | | + + + | Shinto Affiliation | Unknown | + + + | Race | Unknown | + + + | Ethnic Group | Unknown | + + + Author + + + | Author | [facility] | | | and [place] | + + + | Organization | [facility] | | | and [place] | + + + | Address | Unknown | + + + | Phone | Unavailable | + + + Support + + + + + | Name | Relationship | Address | Phone | + + + + + | Lolly Conrad | ECON | [address] | | | | | [place], [place] | | | | | [address] | | + + + + + | Chun Porter | ECON | [address] | | | | | [place] | | | | | [address] | | + + + + + Care Team Providers + +------+ + | Care Lab Aide Name | Role | Phone | + +------+ + PCP | Unavailable | + +------+ + Encounter Details +--------+ + + + + | Date | Type | Department | Care Team | Description | +--------+ + + + + | 01/23/ | Hospital | [facility] | Srikanth Sawyer MD | | | 2008 | Encounter | MED CTR GENERIC OP | [address] [place], [address] | | | | | CONV DEPT [address] | [address] [place], [place] | | | | | [place], | [address] | | | | | [place] [address] | | | | | | [phone] | | | +--------+ + + + [...] [address] | | | | | | [facility] [address] | | | | | | [phone] | | | | | | | | +--------+---------+ + + + documented as of this encounter Visit Diagnoses Not on filedocumented in this encounter"
--- OUTSIDE RECORDS SUMMARY | ~2019-10-06 | XMS | Encounter Summary ---
Demographics + + + | Address | [address] | | | [place] [address] | + + + | Home Phone | | + + + | Preferred Language | Unknown | + + + | Marital Status | | + + + | Latter-Day Affiliation | Unknown | + + + | Race | Unknown | + + + | Ethnic Group | Unknown | + + + Author + + + | Author | [facility] | | | and [place] | + + + | Organization | [facility] | | | and [place] | + + + | Address | Unknown | + + + | Phone | Unavailable | + + + Support + + + + + | Name | Relationship | Address | Phone | + + + + + | Lolly Conrad | ECON | [address] | | | | | [place], [place] | | | | | [address] | | + + + + + | Chun Porter | ECON | [address] | | | | | [place] | | | | | [address] | | + + + + + Care Team Providers + +------+ + | Care Cat Scan Technologist Name | Role | Phone | + [...] + + | 05/14/ | Telephone | [facility] [place] | Srikanth Sawyer MD | Results | | 2013 | | GASTROENTEROLOGY | [address], [address] | | | | | [address] [facility] | [address] [place] [address] | | | | | [address] [place], [place] | [address] | | | | | [address] | | | | | | [phone] | | | +--------+ + + + [...] PSTdocumented in this encounter Plan of Treatment +--------+---------+ + + + | Date | Type | Specialty | Care Team | Description | +--------+---------+ + + + | 07/02/ | Office | Cardiology | Virginie Wiseman | | | 2019 | Visit | | [address] | | | | | | [place] | | | | | | [place] [address] | | | | | | [phone] | | | | | | | | +--------+---------+ + + + documented as of this encounter Visit Diagnoses Not on filedocumented in this encounter"
--- OUTSIDE RECORDS SUMMARY | ~2019-10-06 | XMS | Clinical Summary ---
Demographics + + + | Address | [address] | | | [place] [address] | + + + | Home Phone | | + + + | Preferred Language | Unknown | + + + | Marital Status | | + + + | Worship Affiliation | Unknown | + + + | Race | White | + + + | Ethnic Group | Not or | + + + Author + + + | Author | [facility] | + + + | Organization | [facility] | + + + | Address | Unknown | + + + | Phone | Unavailable | + + + Support + + + + + | Name | Relationship | Address | Phone | + + + + + | Chun Porter | ECON | [address] | | | | | [place] | | | | | [address] | | + + + + + | Katrina Huerta | ECON | Unknown | | + + + + + Care Team Providers + +------+ + | Care Barrel Washer Name | Role | Phone | + +------+ + | Kevin Hummel MD | PCP | | + +------+ + Source Comments MORAIMAHILLARY is fully live on both EpicCare Ambulatory and EpicCare InPatient.[facility]3] Allergies + + + + + + [...]
--- OUTSIDE RECORDS SUMMARY | ~2019-10-06 | XMS | Encounter Summary ---
Demographics + + + | Address | [address] | | | [place] [address] | + + + | Home Phone | | + + + | Preferred Language | Unknown | + + + | Marital Status | | + + + | Alevism Affiliation | Unknown | + + + | Race | Unknown | + + + | Ethnic Group | Unknown | + + + Author + + + | Author | [facility] | | | and [place] | + + + | Organization | [facility] | | | and [place] | + + + | Address | Unknown | + + + | Phone | Unavailable | + + + Support + + + + + | Name | Relationship | Address | Phone | + + + + + | Lolly Conrad | ECON | [address] | | | | | [place], [place] | | | | | [address] | | + + + + + | Chun Porter | ECON | [address] | | | | | [place] | | | | | [address] | | + + + + + Care Team Providers + +------+ + | Care Electrical Maintenance Supervisor Name | Role | Phone | [...] reflux | [address] | [address], | | | | | Cough | [place], [place] | [address] | | | | | Dysphagia, | [address] [place] | [place], | | | | | unspecified( | [place], [place] | [place] [address] | | | | | 787.20) | [address] | Phone: | | | | | Globus | Phone: | [phone] | | | | | sensation | [phone] | Fax: | | | | | Procedures | Fax: | [phone] | | | | | [place] | [phone] | | | | | | ESOPHAGOGAST | | | | | | | RODUODENOSCO | | | | | | | PY TRANSORAL | | | | | | | DIAGNOSTIC | | | | | | | [place] EDG | | | | | | | TRANSORAL | | | | | | | BIOPSY | | | | | | | SINGLE/MULTI | | | | | | | PLE [place] GERD | | | | | | [...] + + | 04/12/ | Telephone | [facility] | Srikanth Sawyer MD | Appointment | | 2013 | | GASTROENTEROLOGY | [address] | (schedule endoscopy | | | | [address] | [address] | with casas study) | | | | [address] | [address] | | | | | [address] | | | | | | [phone] | | | +--------+ + + + [...] an endoscopy with casas study, scheduled for [place] [address] with 0900 check in time, will mail [...] | 2019 | Visit | | [address] | | | | | | [address] | | | | | | [place] [address] | | | | | | [phone] | | | | | | | [...]
--- OUTSIDE RECORDS SUMMARY | ~2019-10-06 | XMS | Encounter Summary ---
Demographics + + + | Address | [address] | | | [place] [address] | + + + | Home Phone | | + + + | Preferred Language | Unknown | + + + | Marital Status | | + + + | Buddhist Affiliation | Unknown | + + + | Race | White | + + + | Ethnic Group | Not or | + + + Author + + + | Author | [facility] | + + + | Organization | [facility] | + + + | Address | Unknown | + + + | Phone | Unavailable | + + + Support + + + + + | Name | Relationship | Address | Phone | + + + + + | Chun Porter | ECON | [address] | | | | | [place] | | | | | [address] | | + + + + + | Katrina Huerta | ECON | Unknown | | + + + + + Care Team Providers + +------+ + | Care Chief Of Anesthesiology Name | Role | Phone | + +------+ + | Kevin Hummel MD | PCP | | + +------+ + Reason for Visit + + + | Reason | Comments | + + + | New patient | Shovel Operator saw swelling in macula area of retina | | consultation | | + + + Encounter Details +--------+---------+ + + + | Date | Type | Department | Care Team | Description | +--------+---------+ + + + | 05/05/ | Office | [facility] | Marycruz Osman, | Epiretinal membrane | | 2010 | Visit | [facility] | [address] | (Primary Dx) | | | | [address] | Trav Person | | | | | [address] | [place], [place] | | | | | [facility] | [address] | | | | | [place], [place] | [phone] | | | | | [address] | [...] Patient presents with: New patient consultation - Shovel Operator saw swelling in macula area of retina HPI: Vianca Porter is a 64 y.o. 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 Madrid, [place], [place]) Chronic Dry Eye & Blepharitis Glasses since 1955 (age 9 years) PMH: Reviewed in [facility], + HTN SH: Reviewed in [facility], Tobacco: Never used, Drives, Lives [...] the plan Umu Nunez MD Ophthalmology Resident [facility] I reviewed all components above, made necessary [...] | + +--------+ + + + | MI SPECIAL EYE EXAM, | Routin | 05/11/2010 | Epiretinal | | | INITIAL | e | 1:58 PM | membrane | | | | | PST | | | + +--------+ + + + | MI FLUORESCEIN | Routin | 05/11/2010 | Epiretinal | | | ANGIOGRAPHY | e | 1:57 PM | membrane | | | | | PST | | | + +--------+ + + + | MI FLUORESCEIN | Routin | 05/11/2010 | Epiretinal [...]
--- OUTSIDE RECORDS SUMMARY | ~2019-10-06 | XMS | Encounter Summary ---
Demographics + + + | Address | [address] | | | [place] [address] | + + + | Home Phone | | + + + | Preferred Language | Unknown | + + + | Marital Status | | + + + | Roman Catholic Affiliation | Unknown | + + + | Race | White | + + + | Ethnic Group | Not or | + + + Author + + + | Author | [facility] | + + + | Organization | [facility] | + + + | Address | Unknown | + + + | Phone | Unavailable | + + + Support + + + + + | Name | Relationship | Address | Phone | + + + + + | Chun Porter | ECON | [address] | | | | | [place] | | | | | [address] | | + + + + + | Katrina Huerta | ECON | Unknown | | + + + + + Care Team Providers + +------+ + | Care Die Cleaner Name | Role | Phone | + +------+ + | Kevin Hummel MD | PCP | | + +------+ + Reason for Visit + + + | Reason | Comments | + + + | New patient | Marine Railway Operator saw swelling in macula area of retina | | consultation | | + + + Encounter Details +--------+---------+ + + + | Date | Type | Department | Care Team | Description | +--------+---------+ + + + | 05/05/ | Office | [facility] | Marycruz Osman, | Epiretinal membrane | | 2010 | Visit | [facility] | [address] | (Primary Dx) | | | | [address] | Trav Person | | | | | [address] | [place], [place] | | | | | [facility] | [address] | | | | | [place], [place] | [phone] | | | | | [address] | [...] Patient presents with: New patient consultation - Marine Railway Operator saw swelling in macula area of retina HPI: Vianca Porter is a 64 y.o. 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 Madrid, [place], [place]) Chronic Dry Eye & Blepharitis Glasses since 1955 (age 9 years) PMH: Reviewed in [facility], + HTN SH: Reviewed in [facility], Tobacco: Never used, Drives, Lives with [...] the plan Umu Nunez MD Ophthalmology Resident [facility] I reviewed all components above, made necessary [...] | + +--------+ + + + | MT SPECIAL EYE EXAM, | Routin | 05/11/2010 | Epiretinal | | | INITIAL | e | 1:58 PM | membrane | | | | | PST | | | + +--------+ + + + | MT FLUORESCEIN | Routin | 05/11/2010 | Epiretinal | | | ANGIOGRAPHY | e | 1:57 PM | membrane | | | | | PST | | | + +--------+ + + + | MT FLUORESCEIN | Routin | 05/11/2010 | Epiretinal [...]
--- OUTSIDE RECORDS SUMMARY | ~2019-10-06 | XMS | Encounter Summary ---
Demographics + + + | Address | [address] | | | [place] [address] | + + + | Home Phone | | + + + | Preferred Language | Unknown | + + + | Marital Status | | + + + | Scientologist Affiliation | Unknown | + + + | Race | Unknown | + + + | Ethnic Group | Unknown | + + + Author + + + | Author | [facility] | | | and [place] | + + + | Organization | [facility] | | | and [place] | + + + | Address | Unknown | + + + | Phone | Unavailable | + + + Support + + + + + | Name | Relationship | Address | Phone | + + + + + | Lolly Conrad | ECON | [address] | | | | | [place], [place] | | | | | [address] | | + + + + + | Chun Porter | ECON | [address] | | | | | [place] | | | | | [address] | | + + + + + Care Team Providers + +------+ + | Care Expense Clerk Name | Role | Phone | [...] | [place], [place] | [place] [address] | | | | | [address] | [phone] | | | | | [phone] | | | +--------+ + + + [...] | | | | | [place] [address] | | | | | | [phone] | | | | | | | | +--------+---------+ + + + documented as of this encounter Visit Diagnoses Not on filedocumented in this encounter"
--- OUTSIDE RECORDS SUMMARY | ~2019-10-06 | XMS | Encounter Summary ---
Demographics + + + | Address | [address] | | | [place] [address] | + + + | Home Phone [...] Author | [facility] | | | and [place] | + + + | Organization | [facility] | | | and [place] | + + + | Address | Unknown | + + + | Phone | Unavailable | + + + Support + + + + + | Name | Relationship | Address | Phone | + + + + + | Lolly Conrad | ECON | [address] | | | | | [place], [place] | | | | | [address] | | + + + + + | Chun Porter | ECON | [address] | | | | | [place] | | | | | [address] | | + + + + + Care Team Providers + +------+ + | Care Chopper Gun Operator Name | Role | Phone | [...] | | | | | | | [address] | | +--------+--------+ + + + + [...] | [address] [place] | [place] [address] | | | | | [place] [address] | | | | | | [phone] | | | +--------+ + + + [...] [place] | | | | | | [facility] [place] [address] | | | | | | [phone] | | | | | | | [...] for comparison only - no result from [place]. | [facility] | + + + + +---------+ + + | Performing | Address | City/State/Zipcode | Phone Number | | Organization | | | | + +---------+ + + | [facility] | | | | + +---------+ + + documented in this encounter Visit Diagnoses Not on filedocumented in this encounter"
--- OUTSIDE RECORDS SUMMARY | ~2019-10-06 | XMS | Encounter Summary ---
Demographics + + + | Address | [address] | | | [place] [address] | + + + | Home Phone | | + + + | Preferred Language | Unknown | + + + | Marital Status | | + + + | Mosque Affiliation | Unknown | + + + | Race | Unknown | + + + | Ethnic Group | Unknown | + + + Author + + + | Author | [facility] | | | and [place] | + + + | Organization | [facility] | | | and [place] | + + + | Address | Unknown | + + + | Phone | Unavailable | + + + Support + + + + + | Name | Relationship | Address | Phone | + + + + + | Lolly Conrad | ECON | [address] | | | | | [place], [place] | | | | | [address] | | + + + + + | Chun Porter | ECON | [address] | | | | | [place] | | | | | [address] | | + + + + + Care Team Providers + +------+ + | Care In Process Inspector Name | Role | Phone | + +------+ + | Kevin Hummel MD | PCP | | + +------+ + Encounter Details +--------+ + + + + | Date | Type | Department | Care Team | Description | +--------+ + + + + | 07/05/ | Hospital | [facility] | Bud Madden, | Arthritis; Chronic | | 2018 | Encounter | [facility] | [address] | pain of right thumb | | | | [address] | [place] [address] | | | | | [place], [place] | [phone] | | | | | [address] | | | | | | [phone] | | | +--------+ + + + [...] 07/05/171625 Date of Service: 07/05/171625 Status: Signed Campaign Associate: Bud Madden MD (Physician) Merged With [facility] Service: Orthopedic Surgery Brief Post-op Discharge Note DISCHARGE DIAGNOSES: Pre-operative Diagnosis: Right thumb painful hardware, right thumb CMC arthritis, right th umb deformity Post-operative Diagnosis: Same Procedure(s): 1. Right thumb CMC arthroplasty, revision, CPT 27357 2. Right thumb tendon transfer for unstable and deformed joint at the level of the CMC maxwell int, CPT 21485 3. Right thumb hardware removal, deep and complicated, CPT 06945 Surgeon: Bud Madden MD Numerical Control Lathe Operator(s): None Anesthesia: General LMA Estimated Blood Loss: [...] No Order Follow up: Shelton Hummel MD [address] [place] [address] 2 [facility] [id number] Medication List START taking these medications ondansetron [...] 07/05/171829 Date of Service: 07/05/171829 Status: Signed Campaign Associate: Mazin Gandara RN (Registered Nurse) Discharge instructions [...] 1431 Date of Service: 07/05/171429 Status: Signed Campaign Associate: Bud Madden MD (Physician) CHIEF COMPLAINT: Right [...] Note by Bud Madden MD at 07/05/17 4870 Author: Bud Madden MD Service: Orthopedic Surgery Author Type: Physician Filed: 07/06/17 3901 Date of Service: 07/05/17 162 Status: Signed Campaign Associate: Bud Madden MD (Physician) Related Notes: Original Note by Bud Madden MD (Physician) filed at 07/05/17 2649 Merged [facility] Service: Orthopedic Surgery Operative Note Pre-operative Diagnosis: Right thumb painful hardware, right thumb CMC arthritis, right th umb deformity Post-operative Diagnosis: Same Procedure(s): 1. Right thumb CMC arthroplasty, revision, CPT 31253 2. Right thumb tendon transfer for unstable and deformed joint at the level of the CMC maxwell int, CPT 35920 3. Right thumb hardware removal, deep and complicated, CPT 55051 Surgeon: Bud Madden MD Numerical Control Lathe Operator(s): None Anesthesia: General LMA Estimated Blood Loss: [...] 07/05/171622 Date of Service: 07/05/171620 Status: Signed Campaign Associate: Bud Madden MD (Physician) Merged [facility] Service: Orthopedic Surgery Brief Op Note Pre-operative Diagnosis: Right thumb painful hardware, right thumb CMC arthritis, right th umb deformity Post-operative Diagnosis: Same Procedure(s): 1. Right thumb CMC arthroplasty, revision, CPT 39535 2. Right thumb tendon transfer for unstable and deformed joint at the level of the CMC maxwell int, CPT 79645 3. Right thumb hardware removal, deep and complicated, CPT 39785 Surgeon: Bud Madden MD Numerical Control Lathe Operator(s): None Anesthesia: General LMA Estimated Blood Loss: [...] [place] | | | | | | [place] [address] | | | | | | [phone] | | | | | | | | +--------+---------+ + + + documented as of this encounter Visit Diagnoses + + | Diagnosis | + + | Arthritis Arthropathy, unspecified, site unspecified | + + | Chronic pain of right thumb | + + documented in this encounter
--- OUTSIDE RECORDS SUMMARY | ~2019-10-06 | XMS | Encounter Summary ---
Demographics + + + | Address | [address] | | | [place] [address] | + + + | Home Phone | | + + + | Preferred Language | Unknown | + + + | Marital Status | | + + + | Adventist Affiliation | Unknown | + + + | Race | Unknown | + + + | Ethnic Group | Unknown | + + + Author + + + | Author | [facility] | | | and [place] | + + + | Organization | [facility] | | | and [place] | + + + | Address | Unknown | + + + | Phone | Unavailable | + + + Support + + + + + | Name | Relationship | Address | Phone | + + + + + | Lolly Conrad | ECON | [address] | | | | | [place], [place] | | | | | [address] | | + + + + + | Chun Porter | ECON | [address] | | | | | [place] | | | | | [address] | | + + + + + Care Team Providers + +------+ + | Care Pharmacy Tech Name | Role | Phone | + +------+ + | Zackary Tee MD | PCP | | + +------+ + Encounter Details +--------+ + + + + | Date | Type | Department | Care Team | Description | +--------+ + + + + | 11/28/ | Orders Only | [facility] | Bud Madden, | | | 2017 | | [facility] | [address] | | | | | [address] | [place] [address] | | | | | [place], [place] | [phone] | | | | | [address] | | | | | | [phone] | | | +--------+ + + + [...] FISH[address] | | | | | | [place] [address] | | | | | | [phone] | | | | | | | | +--------+---------+ + + + documented as of this encounter Procedures + +--------+ + + + | Procedure Name | Priori | Date/Time | Associated Diagnosis | Comments | | | ty | | | | + +--------+ + + + | XR HAND RIGHT 3 + VW | Routin | 11/28/2017 | | Results for this | | | e | 2:13 PM | | procedure are in the | | | | PDT | | results section. | + +--------+ + + + documented in this encounter Results XR Hand Right 3 + Vw (11/28/2017 2:13 PM PDT) + + | Specimen | + + | | + + + + + | Impressions | Performed At | + + + | Hand shows patient status post Trapeziectomy and hardware removal | | | and LR TI. Mild heterotopic bone ossification noted. No sign of | | | specific complication. Stable suspended metacarpal | | + + + + + + | Narrative | Performed At | + + + | INDICATION: Right hand pain COMPARISON: July 05, 2017 | | | TECHNIQUE: Multiple views right hand FINDINGS: Hand shows patient | | | status post Trapeziectomy and hardware removal and LR TI. Mild | | | heterotopic bone ossification noted. No sign of specific | | | complication. Stable suspended metacarpal | | + + + + + | Procedure Note | + + | Timoteo, Ricardo Conversion - 11/30/2018 2:50 PM PDT | | INDICATION: Right hand pain | | | | COMPARISON: July 05, 2017 | | | | TECHNIQUE: Multiple views right hand | | | | FINDINGS: Hand shows patient status post Trapeziectomy and hardware | | removal and LR TI. Mild heterotopic bone ossification noted. No sign of | | specific complication. Stable suspended metacarpal | | | | IMPRESSION: | | Hand shows patient status post Trapeziectomy and hardware | | removal and LR TI. Mild heterotopic bone ossification noted. No sign of | | specific complication. Stable suspended metacarpal | | | | | + + documented in this encounter Visit Diagnoses Not on filedocumented in this encounter"
--- OUTSIDE RECORDS SUMMARY | ~2019-10-06 | XMS | Encounter Summary ---
Demographics + + + | Address | [address] | | | [place] [address] | + + + | Home Phone [...] Author | [facility] | | | and [place] | + + + | Organization | [facility] | | | and [place] | + + + | Address | Unknown | + + + | Phone | Unavailable | + + + Support + + + + + | Name | Relationship | Address | Phone | + + + + + | Lolly Conrad | ECON | [address] | | | | | [place], [place] | | | | | [address] | | + + + + + | Chun Porter | ECON | [address] | | | | | [place] | | | | | [address] | | + + + + + Care Team Providers + +------+ + | Care Child Development Professor Name | Role | Phone | [...] 2013 | | GASTROENTEROLOGY | [address], [place] | | | | | [address] [place] | [address] [place] | | | | | [address] [place], [place] | [address] | | | | | [address] | | | | | | [phone] | | | +--------+ + + + [...] to make sure that her records from [facility] get sent to Dr. Jose Brady ([facility] in [place]. Patient stated that Dr. Brady is [facility] physician who ordered everything and who [...] | | | | | [place] [address] | | | | | | [phone] | | | | | | | | +--------+---------+ + + + documented as of this encounter Visit Diagnoses Not on filedocumented in this encounter"
--- OUTSIDE RECORDS SUMMARY | ~2019-10-06 | XMS | Encounter Summary ---
Demographics + + + | Address | [address] | | | [place] [address] | + + + | Home Phone | | + + + | Preferred Language | Unknown | + + + | Marital Status | | + + + | Confucianism Affiliation | Unknown | + + + | Race | Unknown | + + + | Ethnic Group | Unknown | + + + Author + + + | Author | [facility] | | | and [place] | + + + | Organization | [facility] | | | and [place] | + + + | Address | Unknown | + + + | Phone | Unavailable | + + + Support + + + + + | Name | Relationship | Address | Phone | + + + + + | Lolly Conrad | ECON | [address] | | | | | [place], [place] | | | | | [address] | | + + + + + | Chun Porter | ECON | [address] | | | | | [place] | | | | | [address] | | + + + + + Care Team Providers + +------+ + | Care Assurance Auditor Name | Role | Phone | + [...] Cervical | Florentino E, | [address] | | | | | radiculopath | PA-C [address] | [place], | | | | | y | [address] | [place] | | | | | Cervicalgia | [address] | [address] | | | | | Hyper | [place], | Phone: | | | | | reflexia | [place] [address] | [phone] | | | | | Procedures | Phone: | Fax: | | | | | MRI Cervical | [phone] | [phone] | | | | | Spine wo | Fax: | | | | | | Contrast | [phone] | | +--------+--------+ + + + + [...] | | | | | disorders, | [place] | [place] | | | | | lumbar | [address] | [address] Phone: | | | | | [place] | [place] | [phone] | | | | | | [place] | Fax: | | | | | | [address] | [phone] | | | | | | Phone: | | | | | | | [phone] | | | | | | | Fax: | | | | | | | [phone] | | +--------+--------+ + + + + Encounter Details +--------+---------+ + + + | Date | Type | Department | Care Team | Description | +--------+---------+ + + + | 08/30/ | Office | [facility] | Florentino Fisher, | Cervical | | 2018 | Visit | NEUROSURGERY [address] | PA-C [address] | radiculopathy | | | | [address] | [address] [place] | (Primary Dx); | | | | [place], [place] | [place] [address] | Scoliosis of lumbar | | | | [address] | [phone] | spine, unspecified | | | | [phone] | | scoliosis type; | | | [...] encounter Patient Instructions Patient Instructions Marixa Nieves, Insulation Hoseman - 08/30/2017 9:15 AM PDTIt was a [...] f rom the original. ALTAGRACIA Russo [address] [facility] [place] [address] FAX: [phone] NEUROSURGERY HISTORY AND PHYSICAL EXAMINATION CHIEF COMPLAINT: [...] Laterality Date CHOLECYSTECTOMY, LAPAROSCOPIC 2010 DR CABELLO [facility] COLONOSCOPY 2013 Irineo EYELID SURGERY Bilateral 08/2008 Ectropion FINGER SURGERY Thumb Joint LUMBAR SPINE SURGERY 1971 [facility] LUMBAR SPINE SURGERY 1978 L2, L3 [facility] THYROIDECTOMY [address] Cabello THYROIDECTOMY, PARTIAL 1968 TONSILLECTOMY AND ADENOIDECTOMY CURRENT MEDICATIONS: Current Outpatient Prescriptions Medication Sig Dispense Refill gvslwdu-dryhxmapycbbq-krtgypoc (EXCEDRIN MIGRAINE) 250-250-65 MG per tablet Take 0.5-1 tablets by mouth every 6 hours as needed for Pain. XATCPBD-XIPERJMTO-JJOFXCG D PO Take by mouth. cholecalciferol (VITAMIN [...] has no apparent deficits with short or chcf memory. CRANIAL NERVES: II: Acuity is intact. [...] thumb surgery 5 Ulnar Intrinsics 4 4+ Armored Vehicle Officer Strength 5 5 Hip Flexion 5 5 [...] [address] | | | | | | [place] [address] | | | | | | [phone] | | | | | | | [...]
--- OUTSIDE RECORDS SUMMARY | ~2019-10-06 | XMS | Encounter Summary ---
Demographics + + + | Address | [address] | | | [place] [address] | + + + | Home Phone [...] + + | Author | [facility] | | | and [place] | + + + | Organization | [facility] | | | and [place] | + + + | Address | Unknown | + + + | Phone | Unavailable | + + + Support + + + + + | Name | Relationship | Address | Phone | + + + + + | Lolly Conrad | ECON | [address] | | | | | [place], [place] | | | | | [address] | | + + + + + | Chun Porter | ECON | [address] | | | | | [place] | | | | | [address] | | + + + + + Care Team Providers + +------+ + | Care Crimper Assembler Name | Role | Phone | + +------+ + | Kevin Hummel MD | PCP | | + +------+ + Encounter Details +--------+ + + + + | Date | Type | Department | Care Team | Description | +--------+ + + + + | 06/30/ | Hospital | [facility] | Conversion | | | 2018 | Encounter | [facility] | Transaction, | | | | | CLINIC [address] | Provider Unknown | | | | | [address] [place], [place] | | | | | | [address] | (Fax) | | | | | [phone] | | | +--------+ + + + [...] | 0 | 04/29/19 | | | (HOANGOR-CON M20) 20 | 2 times daily. | [...] [place] | | | | | | [place] [address] | | | | | | [phone] | | | | | | | [...] + + | Historically converted procedure from [facility] environment | EXTERNAL LAB | + + + + +---------+ + + | Performing | Address | City/State/Zipcode | Phone Number | | Organization | | | | + +---------+ + + | EXTERNAL LAB | | | | + +---------+ + + documented in this encounter Visit Diagnoses Not on filedocumented in this encounter
--- OUTSIDE RECORDS SUMMARY | ~2019-10-06 | XMS | Encounter Summary ---
Demographics + + + | Address | [address] | | | [place] [address] | + + + | Home Phone | | + + + | Preferred Language | Unknown | + + + | Marital Status | | + + + | Methodist Affiliation | Unknown | + + + | Race | Unknown | + + + | Ethnic Group | Unknown | + + + Author + + + | Author | [facility] | | | and [place] | + + + | Organization | [facility] | | | and [place] | + + + | Address | Unknown | + + + | Phone | Unavailable | + + + Support + + + + + | Name | Relationship | Address | Phone | + + + + + | Lolly Conrad | ECON | [address] | | | | | [place], [place] | | | | | [address] | | + + + + + | Chun Porter | ECON | [address] | | | | | [place] | | | | | [address] | | + + + + + Care Team Providers + +------+ + | Care Jacker Name | Role | Phone | + [...] + + | 09/13/ | Telephone | [facility] | Buck Workman, | Appointment | | 2018 | | NEUROSURGERY [address] | DO [address] | | | | | [address] | [address] [place], [place] | | | | | [place], [place] | [id number] | | | | | [address] | | | | | | [phone] | | | +--------+ + + + [...] if she begins to have problems again. documartinae d in this encounter Plan of Treatment +--------+---------+ + + + | Date | Type | Specialty | Care Team | Description | +--------+---------+ + + + | 10/10/ | Office | Cardiology | Virginie Wiseman | | | 2019 | Visit | | [address] | | | | | | [place] | | | | | | [place] [address] | | | | | | [phone] | | | | | | | | +--------+---------+ + + + documented as of this encounter Visit Diagnoses Not on filedocumented in this encounter"
--- OUTSIDE RECORDS SUMMARY | ~2019-10-06 | XMS | Encounter Summary ---
Demographics + + + | Address | [address] | | | [place] [address] | + + + | Home Phone | | + + + | Preferred Language | Unknown | + + + | Marital Status | | + + + | Denominational Affiliation | Unknown | + + + | Race | Unknown | + + + | Ethnic Group | Unknown | + + + Author + + + | Author | [facility] | | | and [place] | + + + | Organization | [facility] | | | and [place] | + + + | Address | Unknown | + + + | Phone | Unavailable | + + + Support + + + + + | Name | Relationship | Address | Phone | + + + + + | Lolly Conrad | ECON | [address] | | | | | [place], [place] | | | | | [address] | | + + + + + | Chun Porter | ECON | [address] | | | | | [place] | | | | | [address] | | + + + + + Care Team Providers + +------+ + | Care Machine Binding Folder Name | Role | Phone | + [...] + + | 05/14/ | Telephone | [facility] [place] | Srikanth Sawyer MD | Results | | 2013 | | GASTROENTEROLOGY | [address] | | | | | [address] [facility] | [address] [place] | | | | | [address] [place], [place] | [address] | | | | | [address] | | | | | | [phone] | | | +--------+ + + + [...] | | | | | [place] [address] | | | | | | [phone] | | | | | | | | +--------+---------+ + + + documented as of this encounter Visit Diagnoses Not on filedocumented in this encounter"
--- OUTSIDE RECORDS SUMMARY | ~2019-10-06 | XMS | Encounter Summary ---
Demographics + + + | Address | [address] | | | [place] [address] | + + + | Home Phone | | + + + | Preferred Language | Unknown | + + + | Marital Status | | + + + | Bahai Affiliation | Unknown | + + + | Race | Unknown | + + + | Ethnic Group | Unknown | + + + Author + + + | Author | [facility] | | | and [place] | + + + | Organization | [facility] | | | and [place] | + + + | Address | Unknown | + + + | Phone | Unavailable | + + + Support + + + + + | Name | Relationship | Address | Phone | + + + + + | Lolly Conrad | ECON | [address] | | | | | [place], [place] | | | | | [address] | | + + + + + | Chun Porter | ECON | [address] | | | | | [place] | | | | | [address] | | + + + + + Care Team Providers + +------+ + | Care Rn Clinical Review Name | Role | Phone | + [...] [address] | [address] [place], [place] | | | | | [place] | [address] | | | | | [address] | | | | | | [phone] | | | +--------+ + + + [...] | | | | | [place] [address] | | | | | | [phone] | | | | | | | | +--------+---------+ + + + documented as of this encounter Visit Diagnoses + + | Diagnosis | + + | Neck pain - Primary Cervicalgia | + + documented in this encounter"
--- OUTSIDE RECORDS SUMMARY | ~2019-10-06 | XMS | Encounter Summary ---
Demographics + + + | Address | [address] | | | [place] [address] | + + + | Home Phone | | + + + | Preferred Language | Unknown | + + + | Marital Status | | + + + | Mormonism Affiliation | Unknown | + + + | Race | White | + + + | Ethnic Group | Not or | + + + Author + + + | Author | [facility] | + + + | Organization | [facility] | + + + | Address | Unknown | + + + | Phone | Unavailable | + + + Support + + + + + | Name | Relationship | Address | Phone | + + + + + | Chun Porter | ECON | [address] | | | | | [place] | | | | | [address] | | + + + + + | Katrina Huerta | ECON | Unknown | | + + + + + Care Team Providers + +------+ + | Care Ict Development Manager Name | Role | Phone | [...] membrane | | 2010 | Visit | [place] | | | | | | Photography at | | | | | | [facility] [address] | | | | | [address] | | | | | | Eye [place], [address]th | | | | | | floor [place], [place] | | | | | | [address] | | | +--------+---------+ + + + [...] encounter Josiah Gresham - 05/05/2010 4:37 PM PSTCarealn Sydnee Porter was seen in the [facility] te Photography/Ultrasound Department today, 05/05/2010, for fluorescein, fundus photography a nd OCT ou. ps documented in this enc ounter Plan of Treatment Not on filedocumented as of this encounter Visit Diagnoses + + | Diagnosis | + + | Epiretinal membrane Macular puckering of retina | + + documented in this encounter"
--- OUTSIDE RECORDS SUMMARY | ~2019-10-06 | XMS | Encounter Summary ---
Demographics + + + | Address | [address] | | | [place] [address] | + + + | Home Phone [...] + | Author | [facility] | | | and [place] | + + + | Organization | [facility] | | | and [place] | + + + | Address | Unknown | + + + | Phone | Unavailable | + + + Support + + + + + | Name | Relationship | Address | Phone | + + + + + | Lolly Conrad | ECON | [address] | | | | | [place], [place] | | | | | [address] | | + + + + + | Chun Porter | ECON | [address] | | | | | [place] | | | | | [address] | | + + + + + Care Team Providers + +------+ + | Care Dethistler Operator Name | Role | Phone | + +------+ + PCP | Unavailable | + +------+ + Encounter Details +--------+ + + + + | Date | Type | Department | Care Team | Description | +--------+ + + + + | 04/30/ | Hospital | [facility] | Srikanth Sawyer MD | | | 2013 | Encounter | MED CTR MP INTRA OP | [address], [place] | | | | | [address] | [address] [place], [place] | | | | | [place], [place] | [address] | | | | | [address] | | | | | | [phone] | | | +--------+ + + + [...] Srikanth Sawyer MD - 05/04/2013 8:06 AM [place], [place] [address] Patient Name: JESÚS PORTER Provider: Srikanth Sawyer MD Unit #: [id number] Location: [facility] : 1945 DATE: 05/04/2013 PROCEDURE A 48-hour [...] BY: Srikanth Sawyer MD Gastroenterology JOB #: [id number] EXT JOB #:[id number] <<Signature on File>> Srikanth Sawyer MD 0922 <Electronically signed by Srikanth Sawyer MD> p Note - Lincoln Sawyer MD - 04/30/2013 9:52 [place] [address] Patient Name: JESÚS PORTER Provider: Srikanth Sawyer MD Unit #: [id number] Location: [facility] #: [id number] : 1945 Gastroenterology Patient Name: Jesús Porter Procedure Date: 04/30/2013 9:52 AM Date of : 1945 Admit Type: Outpatient Age: 67 Room: Endo Room 1 Gender: Female Note Status: Finalized Attending MD: Srikanth Sawyer MD Procedure: Upper GI endoscopy Indications: Suspected esophageal reflux, For therapy of esophageal reflux, Failure to respond to medical treatment Providers: Joaquin Sawyer MD, Kerrie Pineda RN, Madiah Sommer, Languages And Literature Instructor Referring MD: Kevin Hummel MD (Referring MD) [...] by the physician, the nurse and the pipeline technician in the endoscopy suite. Mental Status [...] 0 Note Initiated On: 04/30/2013 9:52 AM [facility], [address] [place] [address] Srikanth Sawyer MD 1047 documented in this [...] [address] | | | | | | [place] [address] | | | | | | [phone] | | | | | | | [...] + | [facility] | [address] | [place], [place] | [phone] | | [facility] | | [address] | | | - LABORATORY | | | | + + + + + | [facility] | [address] | [place], [place] | | | [facility] | | [address] | | | - LABORATORY | [...] [address] | [place] | [phone] | | [facility] | | [facility] | | | - LABORATORY | | | | + + + + + | [facility] | [address] | [place] | | | [facility] | | [address] [place] [address] | | | - LABORATORY | | | | + + + + + documented in this encounter Visit Diagnoses Not on filedocumented in this encounter"
--- OUTSIDE RECORDS SUMMARY | ~2019-10-06 | XMS | Encounter Summary ---
Demographics + + + | Address | [address] | | | [place] [address] | + + + | Home Phone | | + + + | Preferred Language | Unknown | + + + | Marital Status | | + + + | Faith Affiliation | Unknown | + + + | Race | White | + + + | Ethnic Group | Not or | + + + Author + + + | Author | [facility] | + + + | Organization | [facility] | + + + | Address | Unknown | + + + | Phone | Unavailable | + + + Support + + + + + | Name | Relationship | Address | Phone | + + + + + | Chun Porter | ECON | [address] | | | | | [place] | | | | | [address] | | + + + + + | Katrina Huerta | ECON | Unknown | | + + + + + Care Team Providers + +------+ + | Care Senior Information Security Engineer Name | Role | Phone | [...] membrane | | 2010 | Visit | [place] | | | | | | Photography at | | | | | | [facility] [address] | | | | | | [address] | | | | | | Eye [place], [address]th | | | | | | floor [place], [place] | | | | | | [address] | | | +--------+---------+ + + + [...] PSTCarelan Sydnee Porter was seen in the [facility] te Photography/Ultrasound Department today, 05/05/2010, for fluorescein, fundus photography a nd OCT ou. ps documented in this enc ounter Plan of Treatment Not on filedocumented as of this encounter Visit Diagnoses + + | Diagnosis | + + | Epiretinal membrane Macular puckering of retina | + + documented in this encounter"
--- OUTSIDE RECORDS SUMMARY | ~2019-10-06 | XMS | Encounter Summary ---
Demographics + + + | Address | [address] | | | [place] [address] | + + + | Home Phone | | + + + | Preferred Language | Unknown | + + + | Marital Status | | + + + | Hindu Affiliation | Unknown | + + + | Race | Unknown | + + + | Ethnic Group | Unknown | + + + Author + + + | Author | [facility] | | | and [place] | + + + | Organization | [facility] | | | and [place] | + + + | Address | Unknown | + + + | Phone | Unavailable | + + + Support + + + + + | Name | Relationship | Address | Phone | + + + + + | Lolly Conrad | ECON | [address] | | | | | [place], [place] | | | | | [address] | | + + + + + | Chun Porter | ECON | [address] | | | | | [place] | | | | | [address] | | + + + + + Care Team Providers + +------+ + | Care Cloud Systems Administrator Name | Role | Phone | + [...] + + | 09/13/ | Telephone | [facility] | Buck Workman, | Appointment | | 2018 | | NEUROSURGERY [address] | DO [address] | | | | | [address] | [address] [place], [place] | | | | | [place], [place] | [id number] | | | | | [address] | | | | | | [phone] | | | +--------+ + + + [...] [address] | | | | | | [place] [address] | | | | | | [phone] | | | | | | | | +--------+---------+ + + + documented as of this encounter Visit Diagnoses Not on filedocumented in this encounter"
--- OUTSIDE RECORDS SUMMARY | ~2019-10-06 | XMS | Encounter Summary ---
Demographics + + + | Address | [address] | | | [place] [address] | + + + | Home Phone [...] + | Author | [facility] | | | and [place] | + + + | Organization | [facility] | | | and [place] | + + + | Address | Unknown | + + + | Phone | Unavailable | + + + Support + + + + + | Name | Relationship | Address | Phone | + + + + + | Lolly Conrad | ECON | [address] | | | | | [place], [place] | | | | | [address] | | + + + + + | Chun Porter | ECON | [address] | | | | | [place] | | | | | [address] | | + + + + + Care Team Providers + +------+ + | Care Snow Fence Erector Name | Role | Phone | + [...] | | | | [address] | [place] [address] | | | | | [place], [place] | [phone] | | | | | [address] | | | | | | [phone] | | | +--------+ + + + [...] [address] | | | | | | [place] [address] | | | | | | [phone] | | | | | | | [...]
--- OUTSIDE RECORDS SUMMARY | ~2019-10-06 | XMS | Encounter Summary ---
Demographics + + + | Address | [address] | | | [place] [address] | + + + | Home Phone | | + + + | Preferred Language | Unknown | + + + | Marital Status | | + + + | Caodaism Affiliation | Unknown | + + + | Race | Unknown | + + + | Ethnic Group | Unknown | + + + Author + + + | Author | [facility] | | | and [place] | + + + | Organization | [facility] | | | and [place] | + + + | Address | Unknown | + + + | Phone | Unavailable | + + + Support + + + + + | Name | Relationship | Address | Phone | + + + + + | Lolly Conrad | ECON | [address] | | | | | [place], [place] | | | | | [address] | | + + + + + | Dillon Porter | ECON | [address] | | | | | [place] | | | | | [address] | | + + + + + Care Team Providers + +------+ + | Care Electrical Instrument Maker Name | Role | Phone | [...] | Chest pain, | DO Marita | [facility] | | | | | unspecified | [address] | | | | | type | [address] | [address] | | | | | Procedures | [place] | [place] | | | | | [place] Nuclear | [place], [place] | [address] | | | | | Stress Test | [address] | Phone: | | | | | (Vasodilator | Phone: | [phone] | | | | | ) | [phone] | Fax: | | | | | | Fax: | [phone] | | | | | | [phone] | | + +--------+ + + + [...] | | | Consult | [place], | [facility] | | | | | | [place] [address] | [address] Phone: | | | | | | Phone: | [phone] | | | | | | [phone] | Fax: | | | | | | Fax: | [phone] | | | | | | [phone] | | + +--------+ + + + + Encounter Details +--------+---------+ + + + | Date | Type | Department | Care Team | Description | +--------+---------+ + + + | 06/13/ | Office | [facility] | Marita Morrow DO | Chest pain, | | 2019 | Visit | CARDIOLOGY YANIRA | [address] | unspecified type | | | | [address] | [place], [place] | (Primary Dx) | | | | [address] | [address] | | | | | [place] | | | | | | [address] | | | | | | [phone] | | | +--------+---------+ + + + [...] Morrow DO - 06/14/2019 2:00 PM PST [facility] Cardiology Consult Note Reason for Consultation: [...] HARDWARE REMOVAL; Surgeon: Bud Madden MD; Location: [facility]; Servi ce: Orthopedics; Laterality: Right; LUMBAR SPINE SURGERY 1971 [place] LUMBAR SPINE SURGERY 1977 L2, L3 [facility] OTHER SURGICAL HISTORY OTHER SURGICAL HISTORY CATARACT EXTRACTION OTHER SURGICAL HISTORY OTHER SURGICAL HISTORY UNLISTED PROCEDURE ARTHROSCOPY OTHER SURGICAL HISTORY Right 07/05/2017 HAND LIGAMENT RECONSTRUCTION - Procedure: LIGAMENT RECONSTRUCTION TENDON INTERPOSITION (LR TI); Surgeon: Bud Madden MD; Location: [facility]; Service: Orthopedics; Laterali ty: Right; SPINE SURGERY THYROID SURGERY THYROIDECTOMY [address] Cabello THYROIDECTOMY, PARTIAL 1967 TONSILLECTOMY AND ADENOIDECTOMY TONSILLECTOMY AND ADENOIDECTOMY UPPER GASTROINTESTINAL ENDOSCOPY MEDICATIONS Home Medications Outpatient Encounter Medications as of 06/14/2019 Medication Sig Dispense Refill ymwwcly-lgvjtdgthhbnt-kwgvrmrj (EXCEDRIN MIGRAINE) 250-250-65 MG per tablet Take 0.5-1 tablets by mouth. [DISCONTINUED] breksxj-akjmdqdlojvmk-zwxjsdxp (EXCEDRIN MIGRAINE) 250-250-65 MG per tab let Take 0.5-1 tablets by mouth every 6 hours as needed for Pain. VTEAGKL-BLDHDGDZN-GUDTXEO D PO Take by mouth. 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
--- OUTSIDE RECORDS SUMMARY | ~2019-10-06 | XMS | Encounter Summary ---
Demographics + + + | Address | [address] | | | [place] [address] | + + + | Home Phone | | + + + | Preferred Language | Unknown | + + + | Marital Status | | + + + | Protestant Affiliation | Unknown | + + + | Race | Unknown | + + + | Ethnic Group | Unknown | + + + Author + + + | Author | [facility] | | | and [place] | + + + | Organization | [facility] | | | and [place] | + + + | Address | Unknown | + + + | Phone | Unavailable | + + + Support + + + + + | Name | Relationship | Address | Phone | + + + + + | Lolly Conrad | ECON | [address] | | | | | [place], [place] | | | | | [address] | | + + + + + | Chun Porter | ECON | [address] | | | | | [place] | | | | | [address] | | + + + + + Care Team Providers + +------+ + | Care Laboratory Immunologist Name | Role | Phone | + +------+ + PCP | Unavailable | + +------+ + Encounter Details +--------+ + + + + | Date | Type | Department | Care Team | Description | +--------+ + + + + | 10/05/ | Hospital | [facility] | Constantine Casillas | | | 2000 | Encounter | MED CTR GENERIC OP | [address], [address] | | | | | CONV DEPT [address] | [place], [place] | | | | | [place], | [address] | | | | | [place] [address] | | | | | | [phone] | | | +--------+ + + + [...] [address] | | | | | | [place] [address] | | | | | | [phone] | | | | | | | | +--------+---------+ + + + documented as of this encounter Visit Diagnoses Not on filedocumented in this encounter"
--- OUTSIDE RECORDS SUMMARY | ~2019-10-06 | XMS | Encounter Summary ---
Demographics + + + | Address | [address] | | | [place] [address] | + + + | Home Phone [...] | [facility] | | | and [place] | + + + | Organization | [facility] | | | and [place] | + + + | Address | Unknown | + + + | Phone | Unavailable | + + + Support + + + + + | Name | Relationship | Address | Phone | + + + + + | Lolly Conrad | ECON | [address] | | | | | [place], [place] | | | | | [address] | | + + + + + | Chun Poretr | ECON | [address] | | | | | [place] | | | | | [address] | | + + + + + Care Team Providers + +------+ + | Care Link Machine Operator Name | Role | Phone [...] [address] | [address] [place], [place] | | | | | [place] | [address] | | | | | [address] | | | | | | [phone] | | | +--------+ + + + [...] | | | | | [place] [address] | | | | | | [phone] | | | | | | | | +--------+---------+ + + + documented as of this encounter Visit Diagnoses + + | Diagnosis | + + | Neck pain - Primary Cervicalgia | + + documented in this encounter"
--- OUTSIDE RECORDS SUMMARY | ~2019-10-06 | XMS | Encounter Summary ---
Demographics + + + | Address | [address] | | | [place] [address] | + + + | Home Phone | | + + + | Preferred Language | Unknown | + + + | Marital Status | | + + + | Yarsanism Affiliation | Unknown | + + + | Race | Unknown | + + + | Ethnic Group | Unknown | + + + Author + + + | Author | [facility] | | | and [place] | + + + | Organization | [facility] | | | and [place] | + + + | Address | Unknown | + + + | Phone | Unavailable | + + + Support + + + + + | Name | Relationship | Address | Phone | + + + + + | Lolly Conrad | ECON | [address] | | | | | [place], [place] | | | | | [address] | | + + + + + | Chun Porter | ECON | [address] | | | | | [place] | | | | | [address] | | + + + + + Care Team Providers + +------+ + | Care Gear Hobber Operator Name | Role | Phone | [...] | | | | [address] | [place] [address] | | | | | [place], [place] | [phone] | | | | | [address] | | | | | | [phone] | | | +--------+ + + + [...] [address] | | | | | | [place] [address] | | | | | | [phone] | | | | | | | [...]
--- OUTSIDE RECORDS SUMMARY | ~2019-10-06 | XMS | Encounter Summary ---
Demographics + + + | Address | [address] | | | [place] [address] | + + + | Home Phone | | + + + | Preferred Language | Unknown | + + + | Marital Status | | + + + | Methodist Affiliation | Unknown | + + + | Race | Unknown | + + + | Ethnic Group | Unknown | + + + Author + + + | Author | [facility] | | | and [place] | + + + | Organization | [facility] | | | and [place] | + + + | Address | Unknown | + + + | Phone | Unavailable | + + + Support + + + + + | Name | Relationship | Address | Phone | + + + + + | Lolly Conrad | ECON | [address] | | | | | [place], [place] | | | | | [address] | | + + + + + | Chun Porter | ECON | [address] | | | | | [place] | | | | | [address] | | + + + + + Care Team Providers + +------+ + | Care Grab Hooker Name | Role | Phone | + +------+ + PCP | Unavailable | + +------+ + Encounter Details +--------+ + + + + | Date | Type | Department | Care Team | Description | +--------+ + + + + | 10/05/ | Hospital | [facility] | Constantine Casillas | | | 2000 | Encounter | MED CTR GENERIC OP | [address], [address] | | | | | CONV DEPT [address] | [place], [place] | | | | | [place], | [address] | | | | | [place] [address] | | | | | | [phone] | | | +--------+ + + + [...] [address] | | | | | | [place] [address] | | | | | | [phone] | | | | | | | | +--------+---------+ + + + documented as of this encounter Visit Diagnoses Not on filedocumented in this encounter"
--- OUTSIDE RECORDS SUMMARY | ~2019-10-06 | XMS | Encounter Summary ---
Demographics + + + | Address | [address] | | | [place] [address] | + + + | Home Phone [...] | Author | [facility] | | | and [place] | + + + | Organization | [facility] | | | and [place] | + + + | Address | Unknown | + + + | Phone | Unavailable | + + + Support + + + + + | Name | Relationship | Address | Phone | + + + + + | Lolly Conrad | ECON | [address] | | | | | [place], [place] | | | | | [address] | | + + + + + | Chun Porter | ECON | [address] | | | | | [place] | | | | | [address] | | + + + + + Care Team Providers + +------+ + | Care Special Assets Officer Name | Role | Phone | + +------+ + | Kevin Hummel MD | PCP | | + +------+ + Encounter Details +--------+ + + + + | Date | Type | Department | Care Team | Description | +--------+ + + + + | 06/30/ | Hospital | [facility] | Conversion | | | 2018 | Encounter | CENTER [facility] | Transaction, | | | | | CLINIC [address] | Provider Unknown | | | | | [address] [place], [place] | | | | | | [address] | (Fax) | | | | | [phone] | | | +--------+ + + + [...] [address] | | | | | | [place] [address] | | | | | | [phone] | | | | | | | [...] + + | Historically converted procedure from [facility] environment | EXTERNAL LAB | + + + + +---------+ + + | Performing | Address | City/State/Zipcode | Phone Number | | Organization | | | | + +---------+ + + | EXTERNAL LAB | | | | + +---------+ + + documented in this encounter Visit Diagnoses Not on filedocumented in this encounter
--- OUTSIDE RECORDS SUMMARY | ~2019-10-06 | XMS | Encounter Summary ---
Demographics + + + | Address | [address] | | | [place] [address] | + + + | Home Phone [...] + + + | Author | [facility] | + + + | Organization | [facility] | + + + | Address | Unknown | + + + | Phone | Unavailable | + + + Support + + + + + | Name | Relationship | Address | Phone | + + + + + | Chun Porter | ECON | [address] | | | | | [place] | | | | | [address] | | + + + + + | Katrina Huerta | ECON | Unknown | | + + + + + Care Team Providers + +------+ + | Care Squaring Shear Operator Name | Role | Phone | + +------+ + | Kevin Hummel MD | PCP | | + +------+ + Reason for Visit + + + | Reason | Comments | + + + | New patient | Keeper Head saw swelling in macula area of retina | | consultation | | + + + Encounter Details +--------+---------+ + + + | Date | Type | Department | Care Team | Description | +--------+---------+ + + + | 05/05/ | Office | [facility] | Marycruz Osman, | Epiretinal membrane | | 2010 | Visit | [facility] | [address] | (Primary Dx) | | | | [address] | Trav Person | | | | | [address] | [place], [place] | | | | | [facility] | [address] | | | | | [place], [place] | [phone] | | | | | [address] | [...] Patient presents with: New patient consultation - Keeper Head saw swelling in macula area of retina HPI: Vianca Porter is a 64 y.o. 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 Madrid, [place], [place]) Chronic Dry Eye & Blepharitis Glasses since 1955 (age 9 years) PMH: Reviewed in [facility], + HTN SH: Reviewed in [facility], Tobacco: Never used, Drives, Lives [...] the plan Umu Nunez MD Ophthalmology Resident [facility] I reviewed all components above, made necessary [...] | + +--------+ + + + | [place] SPECIAL EYE EXAM, | Routin | 05/11/2010 | Epiretinal | | | INITIAL | e | 1:58 PM | membrane | | | | | PST | | | + +--------+ + + + | [place] FLUORESCEIN | Routin | 05/11/2010 | Epiretinal | | | ANGIOGRAPHY | e | 1:57 PM | membrane | | | | | PST | | | + +--------+ + + + | [place] FLUORESCEIN | Routin | 05/11/2010 | Epiretinal [...]
--- OUTSIDE RECORDS SUMMARY | ~2019-10-06 | XMS | Clinical Summary ---
Demographics + + + | Address | [address] | | | [place] [address] | + + + | Home Phone | | + + + | Preferred Language | Unknown | + + + | Marital Status | | + + + | Church Affiliation | Unknown | + + + | Race | Unknown | + + + | Ethnic Group | Unknown | + + + Author + + + | Author | [facility] | | | and [place] | + + + | Organization | [facility] | | | and [place] | + + + | Address | Unknown | + + + | Phone | Unavailable | + + + Support + + + + + | Name | Relationship | Address | Phone | + + + + + | Lolly Conrad | ECON | [address] | | | | | [place], [place] | | | | | [address] | | + + + + + | Chun Porter | ECON | [address] | | | | | [place] | | | | | [address] | | + + + + + Care Team Providers + +------+ + | Care Development Analyst Name | Role | Phone | + [...] 0 | | | Activ | | [id number] | | | | | | e [...] | Added automatically from request for surgery [id number] | + + + + + | Chronic pain of right thumb | 06/22/2017 | + + + + + | Overview: Overview: | | Added automatically from request for surgery [id number] | + + Family History + + [...] [address] | | | | | | [place] [address] | | | | | | [phone] | | | | | | | [...] | [facility] | [facility] | [id number] | 07/11/19 | | | Medica | | | HEALTH | | 09-Pre | | | re | | | MDCR | | sent | | | | + +--------+ +--------+-------+---------+--------+ | [facility] | [facility] | [id number] | 04/11/19 | | | Medica | [...] | | al/Fam | | 1946 | [phone] | [place] [address] | | | nelson | | | 4 (Home) | | + +--------+ +--------+ + + | Vianca Porter | Person | Self | [birth year] | [address] | | | al/Fam | | 1946 | [phone] | [place] [address] | | | nelson | | | 4 (Home) | | + +--------+ +--------+ + + Advance Directives + + + + + | Type | Date Recorded | Patient | Explanation | | | | Post Graduate Intern | | + + + + + | Power of | | | | | Traffic Engineering Technician | | | | + + + + + | Advance | | | | | Directive | | | | + + + + +
--- OUTSIDE RECORDS SUMMARY | ~2019-10-06 | XMS | Encounter Summary ---
Demographics + + + | Address | [address] | | | [place] [address] | + + + | Home Phone | | + + + | Preferred Language | Unknown | + + + | Marital Status | | + + + | Nondenominational Affiliation | Unknown | + + + | Race | Unknown | + + + | Ethnic Group | Unknown | + + + Author + + + | Author | [facility] | | | and [place] | + + + | Organization | [facility] | [...] [place], [place] | | | | | [address] | | + + + + + | Chun Porter | ECON | [address] | | | | | [place] | | | | | [address] | | + + + + + Care Team Providers + +------+ + | Care Field Hauler Name | Role | Phone | + [...] | | | | [address] | [place] [address] | | | | | [place], [place] | [phone] | | | | | [address] | | | | | | [phone] | | | +--------+ + + + [...] [address] | | | | | | [place] [address] | | | | | | [phone] | | | | | | | [...]
--- OUTSIDE RECORDS SUMMARY | ~2019-10-06 | XMS | Clinical Summary ---
Demographics + + + | Address | [address] | | | [place] [address] | + + + | Home Phone | | + + + | Preferred Language | Unknown | + + + | Marital Status | | + + + | Mosque Affiliation | Unknown | + + + | Race | White | + + + | Ethnic Group | Not or | + + + Author + + + | Author | [facility] | + + + | Organization | [facility] | + + + | Address | Unknown | + + + | Phone | Unavailable | + + + Support + + + + + | Name | Relationship | Address | Phone | + + + + + | Chun Porter | ECON | [address] | | | | | [place] | | | | | [address] | | + + + + + | Katrina Huerta | ECON | Unknown | | + + + + + Care Team Providers + +------+ + | Care Wet Char Conveyor Tender Name | Role | Phone | + +------+ + | Kevin Hummel MD | PCP | | + +------+ + Source Comments MORAIMAHILLARY is fully live on both EpicCare Ambulatory and EpicCare InPatient.[facility] Allergies + + + + [...]
--- OUTSIDE RECORDS SUMMARY | ~2019-10-06 | XMS | Encounter Summary ---
Demographics + + + | Address | [address] | | | [place] [address] | + + + | Home Phone | | + + + | Preferred Language | Unknown | + + + | Marital Status | | + + + | Uatsdin Affiliation | Unknown | + + + | Race | Unknown | + + + | Ethnic Group | Unknown | + + + Author + + + | Author | [facility] | | | and [place] | + + + | Organization | [facility] | | | and [place] [...] [place], [place] | | | | | [address] | | + + + + + | Dillon Porter | ECON | [address] | | | | | [place] | | | | | [address] | | + + + + + Care Team Providers + +------+ + | Care Canine Service Teacher Name | Role | Phone | [...] | Chest pain, | DO Marita | [facility] | | | | | unspecified | [address] | | | | | type | [address] | [address] | | | | | Procedures | [place] | [place] | | | | | [place] [facility] | [place], [place] | [address] | | | | | Stress Test | [id number] | Phone: | | | | | (Vasodilator | Phone: | [phone] | | | | | ) | [phone] | Fax: | | | | | | Fax: | [phone] | | | | | | [phone] | | + +--------+ + + + [...] | | | Consult | YANIRA, | [facility] [place] | | | | | | [place] [address] | [address] Phone: | | | | | | Phone: | [phone] | | | | | | [phone] | Fax: | | | | | | Fax: | [phone] | | | | | | [phone] | | + +--------+ + + + + Encounter Details +--------+---------+ + + + | Date | Type | Department | Care Team | Description | +--------+---------+ + + + | 06/13/ | Office | [facility] | Marita Morrow DO | Chest pain, | | 2019 | Visit | CARDIOLOGY YANIRA | [address] | unspecified type | | | | [address] | [place], [place] | (Primary Dx) | | | | [address] [address] | [address] | | | | | [place] | | | | | | [address] | | | | | | [phone] | | | +--------+---------+ + + + [...] Morrow DO - 06/14/2019 2:00 PM PST Located Within [facility] Cardiology Cardiology Consult Note Reason for Consultation: [...] HARDWARE REMOVAL; Surgeon: Bud Madden MD; Location: [facility] MAIN OR; Servi ce: Orthopedics; Laterality: Right; LUMBAR SPINE SURGERY 1971 [place] LUMBAR SPINE SURGERY 1977 L2, L3 [facility] OTHER SURGICAL HISTORY OTHER SURGICAL HISTORY CATARACT EXTRACTION OTHER SURGICAL HISTORY OTHER SURGICAL HISTORY UNLISTED PROCEDURE ARTHROSCOPY OTHER SURGICAL HISTORY Right 07/05/2017 HAND LIGAMENT RECONSTRUCTION - Procedure: LIGAMENT RECONSTRUCTION TENDON INTERPOSITION (LR TI); Surgeon: Bud Madden MD; Location: [facility] MAIN OR; Service: Orthopedics; Laterali ty: Right; SPINE SURGERY THYROID SURGERY THYROIDECTOMY [address] Cabello THYROIDECTOMY, PARTIAL 1967 TONSILLECTOMY AND ADENOIDECTOMY TONSILLECTOMY AND ADENOIDECTOMY UPPER GASTROINTESTINAL ENDOSCOPY MEDICATIONS Home Medications Outpatient Encounter Medications as of 06/14/2019 Medication Sig Dispense Refill sivizbw-jwmjpgmkxvlik-xdehqtei (EXCEDRIN MIGRAINE) 250-250-65 MG per tablet Take 0.5-1 tablets by mouth. [DISCONTINUED] wsicbxj-zifbchnqdykhf-gthvuylr (EXCEDRIN MIGRAINE) 250-250-65 MG per tab let Take 0.5-1 tablets by mouth every 6 hours as needed for Pain. GKVCXCI-TZFYGNGVJ-EICBVUS D PO Take by mouth. 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
[~2019-10-06 10:50] MED LIST changes: +FAMOTIDINE40 MG PO; -VITAMIN D1000 UNI1 PO; +VITAMIN D325 MC1 PO
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
[2019-10-06] MEDS ORDERED: ESCITALOPRAM OXA5 MG PO (11:02)
[2019-10-06] MEDS ORDERED: TROSPIUM CHLORI20 MG PO (11:02)
[2019-10-06] MEDS ORDERED: ULTRAM50 MG PO (16:00)
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
--- NOTE | 2019-10-06 20:55 | NUR ---
INITIAL INTAKE ASSESSMENT COMPLETED. PT HAS BRUISING AND SWELLING NOTED ON LEFT UPPER ARM AND SHOULDER. PT STATES NAUSEA HAS RESOLVED AT THIS TIME. LUNGS ARE CLEAR, VITAL SIGNS WNL. PLAN OF CARE DISCUSSED. ALL QUESTIONS ANSWERED.
--- NOTE | 2019-10-06 21:31 | NUR ---
IN ROOM FOR MEDICATION ADMINISTRATION. PT RESTING WITH PILLOW UNDER LLEFT ARM FOR COMFORT. STATES PAIN IS 6/10 IN LEFT ARM AND NECK. PLAN OF CARE FOR EVENING DISCUSSED. CALL LIGHT WITHIN REACH. NO FURTHER NEEDS AT THIS TIME.
--- NOTE | 2019-10-06 23:00 | NUR ---
PT RESTING IN BED WITH EYES CLOSED. BREATHING EVEN AND UNLABORED. CALL LIGHT WITHIN REACH. NO FURTHER NEEDS AT THIS TIME.
--- NOTE | 2019-10-07 01:01 | NUR ---
ASSESSMENT COMPLETED. PT UP TO BSC WITH ONE PERSON ASSIST. STEADY ON FEET. STATES PAIN HAS DECREASED SINCE EARLIER IN THE SHIFT. DENIES NEED FOR PAIN MEDICAITON AT THIS TIME. CALL LIGHT WITHIN REACH. NO FURTHER NEEDS AT THIS TIME.
--- NOTE | 2019-10-07 03:03 | NUR ---
PT RESTING WITH EYES CLOSED, BREATHING EVEN AND UNLABORED. CALL LIGHT WITHIN REACH. NO FURTHER NEEDS AT THIS TIME.
--- NOTE | 2019-10-07 03:46 | NUR ---
PT UP TO BSC. ASSESSMENT COMPLETED AT THIS TIME. PT ABLE TO STAND PIVOT WITH ONE PERSON ASSIST. STEADY ON FEET. COMPLAINS OF INCREASED PAIN IN LEFT SHOULDER/NECK. PAIN MEDICATION ADMINISTERED (SEE EMAR). CALL LIGHT WITHIN REACH. NO FURTHER NEEDS AT THIS TIME.
--- NOTE | 2019-10-07 05:15 | NUR ---
PT RESTING IN BED, BREATHING EVEN AND UNLABORED. CALL LIGHT WITHIN REACH. NO FURTHER NEEDS AT THIS TIME.
[2019-10-07] MEDS ORDERED: LISINOPRIL2.5 MG PO (07:28)
[2019-10-07] MEDS ORDERED: LEVOTHYROXINE88 MCG PO (07:31)
[2019-10-07] MEDS ORDERED: POTASSIUM CHLO20 ME1 PO (07:33)
--- NOTE | 2019-10-07 07:50 | NUR ---
PATIENT AWAKE AND VISITING WITH PHARMACIST AT THIS TIME ABOUT HOME MEDICATIONS.
--- NOTE | 2019-10-07 08:08 | NUR ---
Medications reconciled using pharmacy records and patient interview
--- NOTE | 2019-10-07 08:20 | NUR ---
PATIENT HELPED UP TO BATHROOM TO VOID. PT HAS CUFF AND A SLING ON LEFT ARM AND BRUSING IS EVIDENT ON LEFT ARM AND SHOULDER AREA. PT HAS BEEN USING ICE TO LEFT ARM. PT RATES PAIN 6/10 AT THIS TIME, BUT WHEN SHE DOESN'T MOVE, IT IS RELATIVELY PAINLESS. BREAKFAST ORDERED FOR PATIENT AND AM MEDICATIONS DISCUSSED WITH PATIENT. CALL LIGHT WITHIN REACH AND PATIENT NOW WATCHING TV.
--- NOTE | 2019-10-07 09:50 | NUR ---
PATIENT ASKING FOR PAIN MEDICATION AT THIS TIME. PT GIVEN TRAMADOL. PILLOW PLACED UNDER KNEES TO SEE IF THIS WILL HELP WITH LOWER BACK PAIN.
--- NOTE | 2019-10-07 10:58 | NUR ---
CALLED DR. MCCARTNEY ABOUT PATIENT'S PAIN AND DISCUSSED ADDING TYLENOL TO PATIENT'S EMAR. DR. DEL CASTILLO TO SEE PATIENT.
--- NOTE | 2019-10-07 11:15 | NUR ---
DR. DEL CASTILLO IN TO SEE PATIENT. PLAN IS TO HAVE DR. ALBA'S OFFICE BRING A BRACE OVER FROM HIS OFFICE TOMORROW AND PLACE IT ON HER ARM. PT WOULD LIKE TO AVOID SURGERY IF POSSIBLE AND WILL BE WORKING WITH PHYSICAL THERAPY IN THE MEANTIME. NEW PAIN MEDICATION TO BE ORDERED WELL PER DR. DEL CASTILLO.
--- NOTE | 2019-10-07 12:40 | NUR ---
PATIENT'S DAUGHTER KENNY CALLED AND GIVEN AN UPDATE ON PT'S CONDITION. PT TO BE MOVED TO ROOM 113 ON MED SURG. REPORT CALLED TO KARINA LOPEZ.
--- NOTE | 2019-10-07 12:45 | NUR ---
PT ARRIVED TO THE FLOOR FROM CCU VIA CHAIR. LUNCH PROVIDED. DENIES NEEDS AT THIS TIME. AT SIDE. PT ALERT AND ORIENTED. CALL LIGHT IN REACH.
--- NOTE | 2019-10-07 13:31 | NUR ---
PATIENT SITTING UP IN CHAIR. VITAL SIGNS AND I&O DONE. CALL LIGHT WITHIN REACH. NO OTHER NEEDS AT THIS TIME
--- NOTE | 2019-10-07 16:52 | NUR ---
pt assisted sba with hand to bathroom. ambulated 3/4 of a small lap with a couple standing breaks. pt up to chair for dinner. reports pain at 5/10. denies further needs. call light in reach.
--- NOTE | 2019-10-07 17:11 | NUR ---
PATIENT SITTING UP IN CHAIR. IN ROOM. VITAL SIGNS AND I&O DONE. CALL LIGHT WITHIN REACH. NO OTHER NEEDS AT THIS TIME
--- NOTE | 2019-10-07 17:27 | NUR ---
CEE REMOVED. PT TOLERATED WELL.
--- NOTE | 2019-10-07 18:27 | NUR ---
TRANSFERED FROM CCU TODAY. PT IS DISORENTED TO TIME, SITUATION AND PALN OF CARE. NEEDS REORIENTING FREQUENTLY. AMBULATED HALLS TODAY. EATING AND DRINKING WELL. VOIDING WELL. BM YESTERDAY. SLING ON LEFT ARM. TRACE NWELL CONTROLLED.
--- NOTE | 2019-10-07 19:25 | NUR ---
SHIFT REPORT RECEIVED FROM DAYSWYFT KARINA LOPEZ AT BEDSIDE. PT AWAKE AND RESTING IN BED, ALSO IN ROOM. LUE IN ARM SLING. PT APPEARS COMFORTABLE AND DENIES NEEDS OR CONCERNS, FORGETFUL AT TIMES. WILL MONITOR.
--- NOTE | 2019-10-07 19:25 | NUR ---
emptied her urine hat. got her a toothbrush per her request. pt needs nothing more at this time.
--- NOTE | 2019-10-07 21:00 | NUR ---
ASSESSMENT COMPLETE, SCHEDULED MEDS GIVEN ALONG WITH PRN PAIN PILL (SEE EMAR). PT DISORIENTED TO DATE, REORINETED. BED ALARM ON FOR SAFETY. VSS. SLING TO LEFT ARM, ASSISTED WITH REPOSITIONING IN BED. CMS INTACT, PT DENIES NUMBNESS AND TINGLING. RADIAL PULSES NOTED. NO FURTHER NEEDS, CALL LIGHT IN REACH.
--- NOTE | 2019-10-07 23:08 | NUR ---
HELPED PT TO THE BATHROOM AND BACK TO BED. BEDSIDE TABLE AND CALL LIGHT IN REACH. BED ALARM SET. PT NEEDS NOTHING MORE AT THIS TIME.
--- NOTE | 2019-10-07 23:30 | NUR ---
pt resting in bed with eyes closed, rr even and unlabored. no distress noted. call light in reach.
--- NOTE | 2019-10-08 01:15 | NUR ---
THIS RN IN ROOM TO ANSWER CALL LIGHT, PT REPORTS NEED TO VOID. SBA TO BATHROOM, REPORTS PAIN WHEN GETTING IN AND OUT OF BED. PT BACK IN BED, NO ADDITIONAL NEEDS AT THIS TIME. CALL LIGHT IN REACH, BED ALARM ON.
--- NOTE | 2019-10-08 03:18 | NUR ---
PT RESTING IN BED WITH EYES CLOSED. RR EVEN AND UNLABORED, NO DISTRESS NOTED. SLING IN PLACE TO LUE AND CALL LIGHT IN EASY REACH.
--- NOTE | 2019-10-08 04:56 | NUR ---
ASSESSMENT COMPLETE, NO NEW CHNAGES OR CONCERNS. PT REPORTS 5/10 PAIN, PRN PAIN PILL GIVEN (SEE EMAR). PT ORIENTED AT THIS TIME, BED ALRM ON TO ENSURE SAFETY PT CAN BE FORGETFUL. CMS INTACT, SLING IN PLACE. RADIAL PULSES NOTED. PT UP TO VOID, THEN BACK TO BED. REPORTED RUMA TO HAVE BM PT BACK SBA TO BATHROOM, UNSUCCESSFUL. PT AGAIN RESTING IN BED, VSS. NO FURTHER NEEDS, CALL LIGHT IN REACH.
--- NOTE | 2019-10-08 06:18 | NUR ---
HELPED PT TO THE BATHROOM AND BACK TO BED . BEDSIDE TABLE AND CALL LIGHT IN REACH. FRESH ICE WATER GIVEN. BED ALARM SET. GARBAGES EMPTIED .PT NEEDS NOTHING MORE AT THIS TIME.
--- NOTE | 2019-10-08 06:19 | NUR ---
PRN TYLENOL GIVEN FOR 10/18 LUE PAIN R/T FRACTURE (SEE EMAR). SLING IN PLACE. VOLCANOLOGIST JULY HELPING PT TO BATHROOM. NO FURTHER NEEDS. PT BACK IN BED, ALARM ON. CALL LIGHT IN REACH.
--- NOTE | 2019-10-08 07:46 | NUR ---
REPORT RECIEVED. PT IN BED AWAKE. CALL LIGHT IN REACH.
--- NOTE | 2019-10-08 08:15 | NUR ---
PT ASSISTED TO CHAIR FOR BREAKFAST SBA. CALL LIGHT IN REACH.
--- NOTE | 2019-10-08 09:08 | NUR ---
PATIENT SITTING UP IN CHAIR. DAUGHTER IN ROOM. VITAL SIGNS AND I&O DONE. PATIENT GOES TO USE THE BATHROOM, ONE PERSON ASSISTING WITH WALKER. ORA CARE DONE. PATIENT BACKS TO CHAIRT. CALL LIGHT WITHIN REACH. NO OTHER NEEDS AT THIS TIME
--- NOTE | 2019-10-08 10:15 | NUR ---
PT STILL REPORTING PAIN 10/18. TYLENOL GIVEN. PHYSICAL THERAPY IN ROOM WITH PT.
--- NOTE | 2019-10-08 11:00 | NUR ---
Notified by Dr. Zhou, OT spoke with him and feel pt would need to have OT to manage at home with one arm. HH is not available in this area fro > than 2 weeks. Discussed transitional care and I will speak with pt about this.
--- NOTE | 2019-10-08 12:17 | NUR ---
SBA TO CHAIR FOR LUNCH. PAIN MEDICAITON GIVEN.
--- NOTE | 2019-10-08 12:52 | NUR ---
STAFF IN TO FIT PT WITH BRACE. BRACE TOO BIG. PLAN TO COME TOMORROW WITH SMALLER BRACE.
--- NOTE | 2019-10-08 13:30 | NUR ---
PATIENT RESTING IN BED. IN ROOM. VITAL SIGNS AND I&O DONE. CALL LIGHT WITHIN REACH. NO OTHER NEEDS AT THIS TIME
--- NOTE | 2019-10-08 14:00 | NUR ---
Spoke with pt for CM assessment. Pt states she lives in [place] in a single level home with her spouse. Does not use DME. helps with the house work and cooking. Discussed OT states she would benefit from TC plan for rehab. Pt states she thinks she would rather go home, but will discuss with Dr. Hill. She also discussed her arm is fx in 3 places, but she does not want surgical repair as she nearly with her last surgery. She states Dr. Hill is casting her arm tomorrow. My entire visit pt. is in pain and moans when moved. Rn brings pain medications. Pt complains she is just very painful.
--- NOTE | 2019-10-08 15:15 | NUR ---
REPORTING 9/10 PAIN WITH MOVEMENT. TYLENOL GIVEN. ASSESSMENT COMPLETED.
--- NOTE | 2019-10-08 17:00 | NUR ---
PT REPORTIGN PAIN. PRN PAIN MEDS GIVEN. SITTING IN CHAIR EATING DINNER.
--- NOTE | 2019-10-08 17:21 | NUR ---
PATIENT SITTING UP IN CHAIR. IN ROOM. VITAL SIGNS AND I&O DONE. CALL LIGHT WITHIN REACH. NO OTHER NEEDS AT THIS TIME
--- NOTE | 2019-10-08 18:23 | NUR ---
AMBULATED PT IN HALLS. 1 LAP COMPLETED WITH CANE. BACK TO BED.
--- NOTE | 2019-10-08 19:49 | NUR ---
REPORT RECEIVED FROM DAY SHIFT RN. PT SITTING IN RECLINER, ALERT AND ORIENTED. DAUGHTER IN ROOM. REPORTS PAIN IS TOLERABLE IF NOT MOVING. LEFT ARM IN BRACE. WHITE BOARD UPDATED. CALL LIGHT IN REACH.
--- NOTE | 2019-10-08 19:55 | NUR ---
PATIENT AMBULATED AROUND THE HALLWAY X1 WITH HER DAUGHTER AND THIS DESIGN TEACHER.
--- NOTE | 2019-10-08 20:45 | NUR ---
PATIENT WANTS TO GO TO BED. PATIENT USED THE TOILET BEFORE BED. PRIMARY RN WAS WITH PATIENT. DAUGHTER WAS IN THE ROOM.
--- NOTE | 2019-10-08 21:05 | NUR ---
PT UP IN CHAIR, DAUGHTER AT CHAIR SIDE. HS MEDICATIONS GIVEN, VS COMPLETED. NO NEEDS VOICED AT THIS TIME.
--- NOTE | 2019-10-08 21:40 | NUR ---
EVENING ASSESSMENT COMPLETE. PRN GIVEN FOR 9/10 LEFT SHOULDER PAIN. PT ASSISTED TO REPOSITION IN BED FOR COMFORT. LEFT ARM CMS INTACT. SLING IN PLACE. ARM ELEVATED WITH PILLOW. DAUGHTER LEAVING FOR THE NIGHT. BED ALARM FOR SAFETY. CALL LIGHT IN REACH.
--- NOTE | 2019-10-08 23:35 | NUR ---
PT RESTING IN BED WITH EYES CLOSED, NAD.
--- NOTE | 2019-10-09 02:04 | NUR ---
PT CALLED, ASSISTED TO BATHROOM. MIMINAL ASSISTANCE WITH CANE. ASSISTANCE WITH CLOTHING. BACK TO BED, PT STATED COMFORT. BEDALARM PLACED, CALL LIGHT WITHIN REACH.
--- NOTE | 2019-10-09 02:47 | NUR ---
PT LYING IN BED WITH EYES OPEN. LEFT ARM PAIN 10/18. PRN GIVEN PER EMAR. ASSISTED TO REPOSITION IN BED. SLING IN PLACE. LEFT ARM SUPPORTED WITH PILLOW. NO FURTHER NEEDS. BED ALARM ON. CALL LIGHT IN REACH.
--- NOTE | 2019-10-09 04:55 | NUR ---
PT RESTING IN BED WITH EYES CLOSED, NAD. RR EVEN AND UNLABORED. BED ALARM ON. CALL LIGHT IN REACH.
--- NOTE | 2019-10-09 07:35 | NUR ---
REPORT RECEIVED. PT UP TO BATHROOM FOR VOID. THEN TO CHAIR FOR BREAKFAST. [facility].
--- NOTE | 2019-10-09 08:40 | NUR ---
CALL LIGHT ANSWERED. PATIENT SITTING UP IN CHAIR. DAUGHTER IN ROOM. PATIENT GOES TO USE THE BATHROOM. ONE PERSON ASSISTING WITH WALKER. PATIENT BACKS TO BED. WARM BLANKET PROVIDED. CALL LIGHT WITHIN REACH. NO OTHER NEEDS AT THIS TIME
--- NOTE | 2019-10-09 09:18 | NUR ---
ASSESSMENT COMPLETED. PT SITTING IN CHAIR. LEFT ARM WITH SWELLING. CMS INTACT. SLING IN PLACE. ICE PLACED. LUNGS CLEAR. HEART SOUNDS REGULAR. CALL LIGHT IN REACH.
--- NOTE | 2019-10-09 10:54 | NUR ---
PATIENT IN CHAIR, DAUGHTER AND CASE MANAGMENT IN ROOM. RN HELPED PATIENT WITH SHOWER AND AM CARE. LINENS CHANGED. FRESH WATER GIVEN. CALL LIGHT IN REACH. NO FURTHER NEEDS AT THIS TIME.
--- NOTE | 2019-10-09 11:00 | NUR ---
In and spoke with pt and her daughter, Lolly, while other daughter listened in by phone. Discussed discharge and pt is wanting to go home. Discussed safety and pts needs. Daughters and pt came to agreement to hire cg in the home to assist pt with personal needs. [employer] brochure given. Daughter Lolly and spouse will stay with pt until they can get a cg in the home. Spoke with Dr. Umanzor and updated. Pt informed him she is constipated and not had a bm in 4 days. He will dc tomorrow after pt has bm.
--- NOTE | 2019-10-09 11:41 | NUR ---
SHOWER COMPLETED WITH STAFF ASSIST. PT UP TO CHAIR. PAIN MEDICATION ADMINSTERED. CALL LIGHT IN REACH
--- NOTE | 2019-10-09 12:28 | NUR ---
LOCATED WITHIN [facility] IN TO FIT PT WITH BRACE.
--- NOTE | 2019-10-09 14:08 | NUR ---
PT REPORTS PAIN 8/10 AT LEFT SHOULDER. HER SPOUSE IS AT BEDSIDE. ADMINISTERED 100MG TAPENTADOL PO PRN AT THIS TIME.
--- NOTE | 2019-10-09 15:43 | NUR ---
SUPPOSITORY ADMINSTERED.
--- NOTE | 2019-10-09 17:35 | NUR ---
PATIENT RESTING IN BED. IN ROOM. PATIENT USES THE BATHROOM. ONE PERSON ASSISTING. PATIENT COMPLAIN ABOUT STOMACH ACHE . RN NOTIFIED. PATIENT BACKS TO BED. VITAL SIGNS AND I&O DONE. CALL LIGHT WITHIN REACH. NO OTHER NEEDS AT THIS TIME
--- NOTE | 2019-10-09 17:47 | NUR ---
PT UP TO BATHROOM FOR SMALL BM. PT HAD STOMACH ACHES WITH BOWEL MOVEMENT. RESOLVED ONCE BACK TO BED. CALL LIGHT IN REACH/
--- NOTE | 2019-10-09 19:39 | NUR ---
REPORT RECEIVED FROM DAY SHIFT RN. PT SITTING IN RECLINER ALERT AND ORIENTED. SLING IN PLACE. PT DENIES PRN FOR PAIN AT THIS TIME. SPOUSE IN ROOM. DENIES NEEDS. WHITE BOARD UPDATED. CALL LIGHT IN REACH.
--- NOTE | 2019-10-09 21:30 | NUR ---
EVENING ASSESSMENT COMPLETE. SCHEDULED MEDS ADMINISTERED PER EMAR. PRN GIVEN FOR LEFT ARM PAIN. LEFT ARM IN BRACE. CMS INTACT. UP TO BR WITH SBA AND CANE. GAIT STEADY. BACK TO BED, LEXII WELL. ARM ELEVATED ON PILLOW. PT DENIES FURTHER NEEDS. BED ALARM ON. CALL LIGHT IN REACH.
--- NOTE | 2019-10-09 22:40 | NUR ---
PATIENT CALLED. WENT TO THE BATHROOM 1 PA USING CANE. PATIENT IS BACK IN BED. CALL LIGHT IN REACH. NO OTHER NEEDS AT THIS TIME.
--- NOTE | 2019-10-09 22:42 | NUR ---
BED ALARM ON FOR SAFETY.
--- NOTE | 2019-10-10 01:29 | NUR ---
PT RESTING IN BED WITH EYES CLOSED, NAD.
--- NOTE | 2019-10-10 03:31 | NUR ---
ANSWERED CALL LIGHT. [facility]. PATIENT IS BACK IN BED. CALL LIGHT IN REACH.
--- NOTE | 2019-10-10 05:12 | NUR ---
CALL LIGHT ANSWERED. PT UP TO BR WITH 1PA. GAIT STEADY. BACK TO BED, LEXII WELL. LEFT ARM IN BRACE. CMS INTACT. PRN GIVEN FOR PAIN. ASSESSMENT COMPLETE. PT DENIES FURTHER NEEDS. BED ALARM ON. CALL LIGHT IN REACH.
--- NOTE | 2019-10-10 07:48 | NUR ---
RECEIVED REPORT FROM HUBERT COLLINS. PT APPEARS TO BE RESTING WHEN THIS RN WALKED IN BUT PT WOKE UP. PT STATES PAIN IS MANAGEABLE AT THIS TIME AND HAS NO CONCERNS OR COMPLAINTS
--- NOTE | 2019-10-10 08:01 | NUR ---
1PA TO BR AND BACK TO CHAIR FOR BREAKFAST. DAUGHTER IN ROOM. CALL LIGHT INR EACH.
--- NOTE | 2019-10-10 08:36 | NUR ---
IN PTS ROOM TO GIVE MORNING MEDS. PT UP TO CHAIR FOR BREAKFAST.
[2019-10-10] MEDS ORDERED: NUCYNTA75 MG PO (10:06)
--- NOTE | 2019-10-10 11:15 | NUR ---
PT ASSISTED UP TO BATHROOM, SHE FEELS SHE NEEDS TO HAVE BM.
[2019-10-10] MEDS ORDERED: POLYETHYLENE GL17 GM PO (11:28)
[2019-10-10] MEDS ORDERED: GENTLE LAXATIVE10 MG PR (11:29)
[2019-10-10] MEDS ORDERED: DOK PLUS TABLE1 EACH PO (11:30)
[2019-10-10] MEDS ORDERED: FAMOTIDINE20 MG PO (11:30)
--- NOTE | 2019-10-10 13:04 | NUR ---
PT REPORTS NAUSEA AFTER TAKING MAG CITRATE, 4MG IV ZOFRAN ADMINISTERED PRN AT THIS TIME.
--- NOTE | 2019-10-10 13:58 | NUR ---
PATIENT UP IN CHAIR, FAMILY IN ROOM. VITALS AND I&OS CHARTED. GARBAGE EMPTIED. CALL LIGHT WITHIN REACH.
--- NOTE | 2019-10-10 15:00 | NUR ---
PT HAD A SMALL BOWEL MOVEMENT AT THIS TIME. THIS RN TO STILL GIVE ENEMA THAT ORDERED
--- NOTE | 2019-10-10 16:09 | NUR ---
PT TO BEDSIDE COMMODE. PT STATING "WHY DID I DO THIS TO MYSELF" PT VERY CONCERNED ABOUT HAVING A BOWEL MOVEMENT. EDUCATED PT ABOUT EMEMAS AND THAT HER BODY IS ON ITS OWN CLOCK AND THAT RELAXING AND NOT STRESSING ABOUT POOPING WILL HELP HER POOP. PT REPORTING LOWER ABDOMINAL PAIN. CHARGE NURSE TEJAS IN PTS ROOM TO DISCUSS WITH PT THAT SHE NEEDS TO POOP TO HELP ALEVIATE THAT PAIN.
--- NOTE | 2019-10-10 16:19 | NUR ---
PT STILL SITTING ON THE COMMODE. PT STATES THAT SHE WANTS TO SIT THERE A LITTLE BIT LONGER. PTS IN ROOM
--- NOTE | 2019-10-10 17:36 | NUR ---
PT ABLE TO HAVE A COUPLE BOWEL MOVEMENTS OF QUANTITY SIZE AT THIS TIME. PT UP TO TOILET TO ALLOW FOR EASE OF HAVING BOWEL MOVEMENTS DUE TO PAIN IN SHOULDER. THIS RN DID PROVIDE PT WITH PAIN MEDICATIONS JUST SHORTLY TO THIS NOTE
--- NOTE | 2019-10-10 18:38 | NUR ---
PATIENT UP IN CHAIR, RN BERNARDO AND DAUGHTER ARE ASSISTING IN PATIENT IN GETTING DRESSED FOR D/C. VITALS DONE AND CHARTED
== END 2019-10-10 18:50 | disposition home or self-care (01) | DRG 563 ==
LOC: ED 10:50 → MS 10:51 → CCU 10:51 → MS 10-07 12:45
PROVIDERS: ADMIT Internal Medicine
DX: S42.302A Unspecified fracture of shaft of humerus, left arm, initial encounter for closed fracture (principal); S42.212A Unspecified displaced fracture of surgical neck of left humerus, initial encounter for closed fracture; E86.0 Dehydration; E03.9 Hypothyroidism, unspecified; E87.6 Hypokalemia; F32.9 Major depressive disorder, single episode, unspecified; K59.00 Constipation, unspecified; W07.XXXA Fall from chair, initial encounter; Z20.828 Contact with and (suspected) exposure to other viral communicable diseases; Z79.899 Other long term (current) drug therapy; Z79.891 Long term (current) use of opiate analgesic; Z88.6 Allergy status to analgesic agent; Z88.1 Allergy status to other antibiotic agents; Z88.5 Allergy status to narcotic agent; Z88.0 Allergy status to penicillin; Z88.2 Allergy status to sulfonamides
CPT/HCPCS: 36415; 72125; 73030; 80053; 82306; 85025; 96361; 96374; 96375; 96376; 97110; 97116; 97162; 97165; 97535; 99284-25; C9803; G0378; J1170; J2405; J7121; U0002

== ENCOUNTER 2019-10-14 12:59 | Emergency (ER) | payer MEDICARE ==
[~2019-10-14] VITALS: Ht 154.9 cm; Wt 54.4 kg
--- OUTSIDE RECORDS SUMMARY | ~2019-10-14 | XMS | Encounter Summary ---
Demographics + + + | Address | [address] | | | [place] [address] | + + + | Home Phone | | + + + | Preferred Language | Unknown | + + + | Marital Status | | + + + | Mormonism Affiliation | Unknown | + + + | Race | Unknown | + + + | Ethnic Group | Unknown | + + + Author + + + | Author | [facility] | | | and [place] | + + + | Organization | [facility] | | | and [place] | + + + | Address | Unknown | + + + | Phone | Unavailable | + + + Support + + + + + | Name | Relationship | Address | Phone | + + + + + | Lolly Conrad | ECON | [address] | | | | | [place], [place] | | | | | [address] | | + + + + + | Chun Porter | ECON | [address] | | | | | [place] | | | | | [address] | | + + + + + Care Team Providers + +------+ + | Care Head Of Product Name | Role | Phone | + +------+ + PCP | Unavailable | + +------+ + Encounter Details +--------+ + + + + | Date | Type | Department | Care Team | Description | +--------+ + + + + | 02/15/ | Hospital | [facility] | Conversion | | | 1999 | Encounter | [facility] | Transaction, | | | | | LABORATORY [address] | Provider Unknown | | | | | [address] [facility] | [phone] | | | | | [address] | | | | | | [phone] | | | +--------+ + + + + Social History + +-------+ +--------+------+ | Tobacco Use | Types | Packs/Day | Years | Date | | | | | Used | | + +-------+ +--------+------+ | Never Assessed | | | | | + +-------+ +--------+------+ + + + | Sex Assigned at | Date Recorded | | | | + + + | Not on file | | + + + documented as of this encounter Plan of Treatment Not on filedocumented as of this encounter Visit Diagnoses Not on filedocumented in this encounter"
--- OUTSIDE RECORDS SUMMARY | ~2019-10-14 | XMS | Encounter Summary ---
Demographics + + + | Address | [address] | | | [place] [address] | + + + | Home Phone | | + + + | Preferred Language | Unknown | + + + | Marital Status | | + + + | Mormon Affiliation | Unknown | + + + | Race | Unknown | + + + | Ethnic Group | Unknown | + + + Author + + + | Author | [facility] | | | and [place] | + + + | Organization | [facility] | | | and [place] | + + + | Address | Unknown | + + + | Phone | Unavailable | + + + Support + + + + + | Name | Relationship | Address | Phone | + + + + + | Lolly Conrad | ECON | [address] | | | | | [place], [place] | | | | | [address] | | + + + + + | Chun Porter | ECON | [address] | | | | | [place] | | | | | [address] | | + + + + + Care Team Providers + +------+ + | Care Data Processing Operator Name | Role | Phone | + +------+ + | eKvin Hummel MD | PCP | | + +------+ + Encounter Details +--------+ + + + + | Date | Type | Department | Care Team | Description | +--------+ + + + + | 08/10/ | Orders Only | [facility] | Buck Workman, | Back pain, | | 2018 | | NEUROSURGERY [address] | DO [address] | unspecified back | | | | [address] | [address] [place], [place] | location, | | | | [place], [place] | [address] | unspecified back | | | | [address] | | pain laterality, | | | | [phone] | | unspecified | | | | | | chronicity (Primary | | | | | | Dx) | +--------+ + + + + Social [...] Not on filedocumented as of this encounter Results XR Lumbar Spine 4 + Vw (08/30/2017 8:50 AM PDT) + + | Specimen | + + | | + + + + + | Narrative | Performed At | + + + | CLINICAL INFORMATION: back pain. COMPARISON: MRI dated | [facility] | | 05/30/2017. FINDINGS: AP and lateral views of the lumbosacral | | | spine including lateral flexion and extension views. Number of | | | lumbar-type vertebrae: 5 Alignment: Moderate dextrocurvature of | | | the lower thoracic and lumbar spine. Mild right lateral listhesis of | | | L3 over L4. No abnormal translation with flexion or extension. | | | Vertebral bodies: Bony demineralization noted. No significant | | | vertebral body height loss. Disk spaces and facet joints: Diffuse | | | degenerative disc disease throughout the lumbar spine, most notable | | | at L2-L3, L3-L4, and L4-L5. Multilevel facet arthrosis, most | | | notable at the lower lumbar spine. Soft tissues: Lower abdominal | | | surgical clips are noted. IMPRESSION - Moderate | | | dextrocurvature with mild right lateral listhesis of L3 over L4. No | | | evidence of instability. Diffuse degenerative changes of the | | | lumbar spine. Dictated and Signed by: Tal Goodrich MD | | | Electronically signed: 08/30/2017 10:38 AM | | + + + + + | Procedure Note | + + | Timoteo, Rad Results In - 08/30/2017 10:41 AM PDT | | CLINICAL INFORMATION: back pain. | | | | COMPARISON: MRI dated 05/30/2017. | | | | FINDINGS: | | AP and lateral views of the lumbosacral spine including lateral flexion and | | extension views. | | | | Number of lumbar-type vertebrae: 5 | | | | Alignment: Moderate dextrocurvature of the lower thoracic and lumbar spine. | | Mild right lateral listhesis of L3 over L4. No abnormal translation with | | flexion or extension. | | | | Vertebral bodies: Bony demineralization noted. No significant vertebral body | | height loss. | | | | Disk spaces and facet joints: Diffuse degenerative disc disease throughout the | | lumbar spine, most notable at L2-L3, L3-L4, and L4-L5. Multilevel facet | | arthrosis, most notable at the lower lumbar spine. | | | | Soft tissues: Lower abdominal surgical clips are noted. | | | | | | IMPRESSION - | | Moderate dextrocurvature with mild right lateral listhesis of L3 over L4. No | | evidence of instability. | | | | Diffuse degenerative changes of the lumbar spine. | | | | Dictated and Signed by: Tal Goodrich MD | | Electronically signed: 08/30/2017 10:38 AM | + + + +---------+ + + | Performing | Address | City/State/Zipcode | Phone Number | | Organization | | | | + +---------+ + + | [facility] | | | | + +---------+ + + documented in this encounter Visit Diagnoses + + | Diagnosis | + + | Back pain, unspecified back location, unspecified back pain laterality, unspecified | | chronicity - Primary | + + documented in this encounter"
--- OUTSIDE RECORDS SUMMARY | ~2019-10-14 | XMS | Encounter Summary ---
Demographics + + + | Address | [address] | | | [place] [address] | + + + | Home Phone | | + + + | Preferred Language | Unknown | + + + | Marital Status | | + + + | Jewish Affiliation | Unknown | + + + | Race | Unknown | + + + | Ethnic Group | Unknown | + + + Author + + + | Author | [facility] | | | and [place] | + + + | Organization | [facility] | | | and [place] | + + + | Address | Unknown | + + + | Phone | Unavailable | + + + Support + + + + + | Name | Relationship | Address | Phone | + + + + + | Lolly Conrad | ECON | [address] | | | | | [place], [place] | | | | | [address] | | + + + + + | Chun Porter | ECON | [address] | | | | | [place] | | | | | [address] | | + + + + + Care Team Providers + +------+ + | Care Wind Farm Operations Manager Name | Role | Phone | + +------+ + | Kevin Hummel MD | PCP | | + +------+ + Encounter Details +--------+ + + + + | Date | Type | Department | Care Team | Description | +--------+ + + + + | 07/05/ | Hospital | [facility] | Bud Madden, | Arthritis; Chronic | | 2018 | Encounter | [facility] | [address] | pain of right thumb | | | | [address] | [place] [address] | | | | | [place], [place] | [phone] | | | | | [address] | | | | | | [phone] | | | +--------+ + + + [...] + + documented as of this encounter Discharge Summaries Bud Madden MD - 07/05/2017 4:26 PM PDTFormatting of this note might be differ ent from the original. Discharge Summaries by Bud Madden MD at 07/05/171625 Author: Bud Madden MD Service: Orthopedic Surgery Author Type: Physician Filed: 07/05/171625 Date of Service: 07/05/171625 Status: Signed Rectifier Operator: Bud Madden MD (Physician) [facility] Service: Orthopedic Surgery Brief Post-op Discharge Note DISCHARGE DIAGNOSES: Pre-operative Diagnosis: Right thumb painful hardware, right thumb CMC arthritis, right th umb deformity Post-operative Diagnosis: Same Procedure(s): 1. Right thumb CMC arthroplasty, revision, CPT 79943 2. Right thumb tendon transfer for unstable and deformed joint at the level of the CMC maxwell int, CPT 89720 3. Right thumb hardware removal, deep and complicated, CPT 62798 Surgeon: Bud Madden MD [employer] Internship(s): None Anesthesia: General LMA Estimated Blood Loss: Less Than 10 ml (Minimal) Other: Not applicable Indications: See pre-operative history and physical. Findings: As above Complications: None Condition: Stable Procedures: Procedure(s): LIGAMENT RECONSTRUCTION TENDON INTERPOSITION (LRTI) HARDWARE REMOVAL This patient was transferred to the recovery area post-operatively and has experienced no d ifficulties at the time of my assessment. The patient is anticipated to continue to meet di scharge criteria per protocol as assessed by nursing and may be discharged at that time with designated caregiver. Disposition: Home Condition: Good Code Status: No Order Follow up: Shelton Hummel MD [address] [place] [address] 2 [facility] [id number] Medication List START taking these medications ondansetron 4 MG tablet QTY: 20 tablet Refills: 0 Commonly known as: ZOFRAN Take 1 tablet by mouth 3 (three) times daily as needed for Nausea for up to 7 days. oxyCODONE-acetaminophen 5-325 MG per tablet QTY: 30 tablet Refills: 0 Commonly known as: PERCOCET Take 1 tablet by mouth every 4 (four) hours as needed for Pain for up to 10 days. CONTINUE taking these medications CALCIUM 500 PO Refills: 0 KLOR-CON M20 20 MEQ tablet Refills: 0 Generic drug: potassium chloride SA levothyroxine 112 MCG tablet Refills: 0 Commonly known as: SYNTHROID multivitamin with minerals tablet Refills: 0 You might also be taking other medications not listed above. If you have questions about an y of your other medications, talk to the person who prescribed them or your Primary Care Pro vider. Where to Get Your Medications You can get these medications from any pharmacy Bring a paper prescription for each of these medications ondansetron 4 MG tablet oxyCODONE-acetaminophen 5-325 MG per tablet Bud Madden MD 07/05/2017 documented in this encounter Medications at Time of Discharge [...] + + documented as of this encounter Progress Notes Gatito Brionesaction, Provider Unknown - 07/05/2017 6:30 PM PDTFormatting of this note m ight be different from the original. Nurse Progress Note by Mazin Gandara RN at 07/05/171829 Author: Mazin Gandara RN Service: (none) Author Type: Registered Nurse Filed: 07/05/171829 Date of Service: 07/05/171829 Status: Signed Rectifier Operator: Mazin Gandara RN (Registered Nurse) Discharge instructions including signs and symptoms of surgical site infection discussed wi th patient and family. Prescriptions given and side effects explained. Patient and family st ate understanding. No further questions. Vital signs stable. Discharged via wheelchair per o rder. Mazin Gandara RN docume nted in this encounter H&P Bud Gutierrez MD - 07/05/2017 2:30 PM PDTFormatting of this note might be differ ent from the original. H&P by Bud Madden MD at 07/05/17 1430 Author: Bud Madden MD Service: Orthopedic Surgery Author Type: Physician Filed: 07/05/17 1431 Date of Service: 07/05/171429 Status: Signed Rectifier Operator: Bud Madden MD (Physician) CHIEF COMPLAINT: Right thumb pain States she has arthritis. On Feb 25 has joint replacement . States it has not healed well. Cannot use the hand. No numbness or tingling. Has pain. Hand Pain HISTORY OF PRESENT ILLNESS Our patient is very pleasant 71-year-old female with right thumb pain that has a complex hi story. The patient had an insidious onset of left basilar thumb pain over the past several y ears and underwent surgery in February by an outside surgeon for an implant arthroplasty to the basilar joint of the left thumb. Unfortunately since the surgery the patient has had a d eformity of the thumb that is quite painful with the metacarpal and brought into a significa nt extension and the metacarpal phalangeal joint forced to significantly flex. The problem n ow is constant and of moderate to severe severity. There is mild to moderate associated swel ling. The pain is constant. The pain is exacerbated with activity and pressure relieved only partially with rest. REVIEW OF SYSTEMS, comprehensive review of systems performed and is negative except for not ed above and below Review of Systems HENT: Positive for hearing loss. Past Medical History Diagnosis Date Arthritis Disorder of thyroid Hepatitis A Osteoporosis Past Surgical History Procedure Laterality Date CATARACT EXTRACTION CHOLECYSTECTOMY CMC Joint replacement Ectopian Eye SPINE SURGERY THYROID SURGERY TONSILLECTOMY Allergies Allergen Reactions Penicillins Rash Codeine Headache Tyloxapol Headache Prior to Admission medications Not on File Family History Problem Relation Age of Onset Cancer Cousin Heart disease Cousin Diabetes type I Cousin Hypertension Cousin Obesity Cousin Thyroid disease Cousin Stroke Cousin Social History Social History Social History Marital status: Spouse name: N/A Number of children: N/A Years of education: N/A Occupational History Not on file. Social History Main Topics Smoking status: Never Smoker Smokeless tobacco: Never Used Alcohol use No Drug use: Unknown Sexual activity: Not on file Other Topics Concern Not on file Social History Narrative No narrative on file PHYSICAL EXAM Vital Signs: BP (!) 157/91 | Pulse 79 | Ht 1.499 m (4' 11") | Wt 50.8 kg (112 lb) | BMI 22.62 kg/m Physical Exam Well developed well nourished patient No acute distress Alert and oriented times three Head and neck are normal Oropharynx is clear Gaze is conjugate Breathing is unlabored Heart is regular rate and rhythm Ortho Exam RUE Skin is clean, dry and intact Brisk cap refill 2+ pulses No deficits noted Motor and sensation are intact No masses, no lymphadenopathy Normal sweat patterns No hyperreflexia Negative beckham's maneuver Compartments are soft and compressible The right thumb sits with the metacarpal extended roughly 40 and the metacarpophalangeal joint forced flex to about 60. There is exquisitely positive grind test at the basilar panchito nt of the thumb. There is also swelling noted to the thumb. X-ray Hand Right 3 +views Result Date: 06/22/2017 INDICATION: Right thumb pain COMPARISON: None TECHNIQUE: Multiple views of the right thumb FINDINGS: Right thumb shows severe deformity and migration of a thumb CMC implant arthroplas ty with the implant now articulating with the base of the second metacarpal Right thumb deformity with arthrosis at the CMC joint as well as migration of the arthropl asty component Radiographs reviewed by me with patient today in detail. All questions answered, report rev iewed as well PROBLEM LIST Encounter Diagnoses Name Primary? Chronic pain of right thumb Yes Arthritis Arthritis of carpometacarpal (CMC) joint of right thumb Painful orthopaedic hardware (HCC) ASSESSMENT & PLAN We had a thorough discussion of risks and benefits. This is a complex decision with multipl e options. Each option discussed in detail. All questions answered. Unfortunately the patient's implant has now shifted and articulates with the base of the se cond metacarpal which is a problem for thumb mechanics. My recommendation is removal of the implant and supplementation with a tendon transfer for both suspension and interposition. I had a long discussion with the risks and benefits of surgery versus conservative care. All t he daughter's questions have been answered as well. Risks and benefits of right thumb hardware removal and LRTI surgery have been reviewed in d etail. Healing rates have been reviewed in detail as well as what to expect postoperatively. We will move forward with surgery. Risks include but are not limited to bleeding, infection, need for reoperation, damage to nerves/blood vessels/tendons, chronic deformity and pain. All questions have been answered. Rehabilitation protocols reviewed. Success rates and recurrence rates have been discussed. N o guarantees have been given. documented in this encounter Miscellaneous Notes Op Note - Bud Madden MD - 07/05/2017 4:24 PM PDT Op Note by Bud Madden MD at 07/05/17 2900 Author: Bud Madden MD Service: Orthopedic Surgery Author Type: Physician Filed: 07/06/17 2333 Date of Service: 07/05/17 1620 Status: Signed Rectifier Operator: Bud Madden MD (Physician) Related Notes: Original Note by Bud Madden MD (Physician) filed at 07/05/17 5690 [facility] Service: Orthopedic Surgery Operative Note Pre-operative Diagnosis: Right thumb painful hardware, right thumb CMC arthritis, right th umb deformity Post-operative Diagnosis: Same Procedure(s): 1. Right thumb CMC arthroplasty, revision, CPT 37046 2. Right thumb tendon transfer for unstable and deformed joint at the level of the CMC maxwell int, CPT 93085 3. Right thumb hardware removal, deep and complicated, CPT 99520 Surgeon: Bud Madden MD [employer] Internship(s): None Anesthesia: General LMA Estimated Blood Loss: Less Than 10 ml (Minimal) Other: Not applicable Indications: See pre-operative history and physical. Findings: As above Complications: None Condition: Stable The patient was brought into the operating room, and a multidisciplinary timeout occurred t o ensure proper patient and laterality which was the right side. The patient was prepped and draped in the usual sterile manner and received the appropriate preoperative antibiotics as well as sequential compression devices to the bilateral calves. Following sterile prep and drape, the right upper extremity was elevated and exsanguinated; and a brachial tourniquet w as inflated to 250 mmHg. At this point I made a sharp incision at the base of the thumb metacarpal. Sharp dissection was carried out through skin with gentle spreading through the subcutaneous tissues. I came in the interval between the APL and the EPB and sharply incised down to the base of the rosalba mb metacarpal. I then skeletonized the base of the thumb metacarpal and skeletonized the tra pezium. I removed the trapezium piecemeal. I then removed some of the hypertrophic bone abou t the thumb metacarpal around the implant and was able to removed the implant. The wound was irrigated. I then removed the rest of the trapezium. I also removed the proximal third of the trapezoi d as this was arthritic at the STT joint. Following CMC arthroplasty, the thumb was grossly unstable and required a tendon transfer. The wound was irrigated and bathed in 0.5% Marcaine without epinephrine. I then made an incision in the forearm, identified the FCR tendon, sectioned it, and mcakenzie t into my distal wound. I drilled a hole at the base of the thumb metacarpal and passed my t endon through the hole and then secured it with 0 FiberWire as a suspension. I then anchovie d the remaining portion of the tendon and placed in the void left behind by the trapezium an d the trapezoid as an interposition. The thumb was now stable and had excellent opposition a nd range of motion. The wound was irrigated and bathed once more. The capsule was closed. Th e skin was closed. A soft dressing was applied followed by a thumb spica splint. The patient was taken to the recovery room in stable condition. All counts correct. Fingers warm and pink. Bud Madden MD 07/05/2017 p Note - Surya hammond, Bud Johnson MD - 07/05/2017 4:21 PM PDT Brief Op Note by Bud Madden MD at 07/05/171620 Author: Bud Madden MD Service: Orthopedic Surgery Author Type: Physician Filed: 07/05/171622 Date of Service: 07/05/171620 Status: Signed Rectifier Operator: Bud Madden MD (Physician) [facility] Service: Orthopedic Surgery Brief Op Note Pre-operative Diagnosis: Right thumb painful hardware, right thumb CMC arthritis, right th umb deformity Post-operative Diagnosis: Same Procedure(s): 1. Right thumb CMC arthroplasty, revision, CPT 65901 2. Right thumb tendon transfer for unstable and deformed joint at the level of the CMC maxwell int, CPT 63514 3. Right thumb hardware removal, deep and complicated, CPT 70873 Surgeon: Bud Madden MD [employer] Internship(s): None Anesthesia: General LMA Estimated Blood Loss: Less Than 10 ml (Minimal) Other: Not applicable Indications: See pre-operative history and physical. Findings: As above Complications: None Condition: Stable See dictated operative report for full details. Bud Madden MD 07/05/2017 documented in this encounter Plan of Treatment Not on filedocumented as of this encounter Visit Diagnoses + + | Diagnosis | + + | Arthritis Arthropathy, unspecified, site unspecified | + + | Chronic pain of right thumb | + + documented in this encounter
--- OUTSIDE RECORDS SUMMARY | ~2019-10-14 | XMS | Encounter Summary ---
Demographics + + + | Address | [address] | | | [place] [address] | + + + | Home Phone | | + + + | Preferred Language | Unknown | + + + | Marital Status | | + + + | Nondenominational Affiliation | Unknown | + + + | Race | White | + + + | Ethnic Group | Not or | + + + Author + + + | Author | [facility] | + + + | Organization | [facility] | + + + | Address | Unknown | + + + | Phone | Unavailable | + + + Support + + + + + | Name | Relationship | Address | Phone | + + + + + | Chun Porter | ECON | [address] | | | | | [place] | | | | | [address] | | + + + + + | Katrina Huerta | ECON | Unknown | | + + + + + Care Team Providers + +------+ + | Care Fiber Product Cutting Machine Operator Name | Role | Phone | + +------+ + | Kevin Hummel MD | PCP | | + +------+ + Reason for Visit + + + | Reason | Comments | + + + | Eye examination | | + + + Encounter Details +--------+---------+ + + + | Date | Type | Department | Care Team | Description | +--------+---------+ + + + | 05/05/ | Office | [facility] | | Epiretinal membrane | | 2010 | Visit | [place] | | | | | | Photography at | | | | | | [facility] [address] | | | | [address] | | | | | | Eye [place], [address]th | | | | | | floor [place], [place] | | | | | | [address] | | | +--------+---------+ + + + Social History + +-------+ +--------+------+ | Tobacco Use | Types | Packs/Day | Years | Date | | | | | Used | | + +-------+ +--------+------+ | Never Smoker | | | | | + +-------+ +--------+------+ + + +---------+ + | Alcohol Use | Drinks/Week | oz/Week | Comments | + + +---------+ + | Not Asked | | | | + + +---------+ + + + + | Sex Assigned at | Date Recorded | | | | + + + | Not on file | | + + + + + + + | Job Start Date | Occupation | Industry | + + + + | Not on file | Not on file | Not on file | + + + + + + + + | Travel History | Travel Start | Travel End | + + + + + + | No recent travel history available. | + + documented as of this encounter Josiah Gresham - 05/05/2010 4:37 PM PSTCarelan Sydnee Porter was seen in the [facility] te Photography/Ultrasound Department today, 05/05/2010, for fluorescein, fundus photography a nd OCT ou. ps documented in this enc ounter Plan of Treatment Not on filedocumented as of this encounter Visit Diagnoses + + | Diagnosis | + + | Epiretinal membrane Macular puckering of retina | + + documented in this encounter"
--- OUTSIDE RECORDS SUMMARY | ~2019-10-14 | XMS | Encounter Summary ---
Demographics + + + | Address | [address] | | | [place] [address] | + + + | Home Phone | | + + + | Preferred Language | Unknown | + + + | Marital Status | | + + + | Hinduism Affiliation | Unknown | + + + | Race | Unknown | + + + | Ethnic Group | Unknown | + + + Author + + + | Author | [facility] | | | and [place] | + + + | Organization | [facility] | | | and [place] | + + + | Address | Unknown | + + + | Phone | Unavailable | + + + Support + + + + + | Name | Relationship | Address | Phone | + + + + + | Lolly Conrad | ECON | [address] | | | | | [place], [place] | | | | | [address] | | + + + + + | Chun Porter | ECON | [address] | | | | | [place] | | | | | [address] | | + + + + + Care Team Providers + +------+ + | Care Framing Carpenter Name | Role | Phone | + +------+ + PCP | Unavailable | + +------+ + Encounter Details +--------+ + + + + | Date | Type | Department | Care Team | Description | +--------+ + + + + | 10/04/ | Hospital | [facility] | Conversion | | | 1998 | Encounter | HOSPITAL EMERGENCY | Transaction, | | | | | CENTER [address] | Provider Unknown | | | | | [address] [place], [place] | | | | | | [address] | (Fax) | | | | | [phone] | | | +--------+ + + + [...]
--- OUTSIDE RECORDS SUMMARY | ~2019-10-14 | XMS | Encounter Summary ---
Demographics + + + | Address | [address] | | | [place] [address] | + + + | Home Phone | | + + + | Preferred Language | Unknown | + + + | Marital Status | | + + + | Zoroastrianism Affiliation | Unknown | + + + | Race | Unknown | + + + | Ethnic Group | Unknown | + + + Author + + + | Author | [facility] | | | and [place] | + + + | Organization | [facility] | | | and [place] | + + + | Address | Unknown | + + + | Phone | Unavailable | + + + Support + + + + + | Name | Relationship | Address | Phone | + + + + + | Lolly Conrad | ECON | [address] | | | | | [place], [place] | | | | | [address] | | + + + + + | Chun Porter | ECON | [address] | | | | | [place] | | | | | [address] | | + + + + + Care Team Providers + +------+ + | Care Harbor Police Launch Commander Name | Role | Phone | + +------+ + PCP | Unavailable | + +------+ + Reason for Referral Evaluate & Treat (Routine) +--------+ + + + + + | Status | Reason | Specialty | Diagnoses / | Referred By | Referred To | | | | | Procedures | Contact | Contact | +--------+ + + + + + | Closed | Specialty | Gastroenterol | Diagnoses | Harri, | Harri, | | | Services | ogy | Esophageal | Srikanth Ellis MD | Srikanth Ellis MD | | | Required | | reflux | [address], | | | | | Cough | [address], [address] | [address] | | | | | Dysphagia, | [address] [place] | [place], | | | | | unspecified( | [place], [place] | [place] [address] | | | | | [phone]) | [address] | Phone: | | | | | Globus | Phone: | [phone] | | | | | sensation | [phone] | Fax: | | | | | Procedures | Fax: | [phone] | | | | | [place] | [phone] | | | | | | ESOPHAGOGAST | | | | | | | RODUODENOSCO | | | | | | | PY TRANSORAL | | | | | | | DIAGNOSTIC | | | | | | | ME EDG | | | | | | | TRANSORAL | | | | | | | BIOPSY | | | | | | | SINGLE/MULTI | | | | | | | PLE ME GERD | | | | | | | TST W/ | | | | | | | MUCOS PH | | | | | | | ELECTROD | | | +--------+ + + + + + Reason for Visit + +--------+ + | Reason | Onset | Comments | | | Date | | + +--------+ + | Appointment | 04/12/ | schedule endoscopy with casas study | | | 2013 | | + +--------+ + Encounter Details +--------+ + + + + | Date | Type | Department | Care Team | Description | +--------+ + + + + | 04/12/ | Telephone | [facility] | Srikanth Sawyer MD | Appointment | | 2013 | | GASTROENTEROLOGY | [address] | (schedule endoscopy | | | | [address] | [address] [place] [address] | with casas study) | | | | [address] | [address] | | | | | [address] | | | | | | [phone] | | | +--------+ + + + [...] this encounter Miscellaneous Notes Telephone Encounter - Vira Hamm RN - 04/12/2013 4:48 PM PSTCalled patient advised travis Bloom reviewed information and ok'd for an endoscopy with casas study, scheduled for [place] [address] with 0900 check in time, will mail written instructions, patient states that she do es not take a ppi after advised will need to hold for approx 5 days, she did say she takes g aviscon every night, discussed with he said hold the gaviscon for 2 days prior to t hat and none during the time of test. Will write it on the instructions. Patient to call i f any questions. document ed in this encounter Plan of Treatment + + +--------+ + + | Name | Type | Priori | Associated Diagnoses | Order Schedule | | | | ty | | | + + +--------+ + + | Ambulatory referral | Outpatient | Routin | Esophageal reflux | Expected: | | to Gastroenterology | Referral | e | Cough Dysphagia, | 04/30/2013, Expires: | | | | | unspecified Globus | 04/12/2014 | | | | | sensation | | + + +--------+ + + documented as of this encounter Visit Diagnoses + + | Diagnosis | + + | Esophageal reflux - Primary | + + | Cough | + + | Dysphagia, unspecified(787.20) Dysphagia, unspecified | + + | Globus sensation Gastrointestinal malfunction arising from mental factors | + + documented in this encounter"
--- OUTSIDE RECORDS SUMMARY | ~2019-10-14 | XMS | Encounter Summary ---
Demographics + + + | Address | [address] | | | [place] [address] | + + + | Home Phone | | + + + | Preferred Language | Unknown | + + + | Marital Status | | + + + | Christianity Affiliation | Unknown | + + + | Race | Unknown | + + + | Ethnic Group | Unknown | + + + Author + + + | Author | [facility] | | | and [place] | + + + | Organization | [facility] | | | and [place] | + + + | Address | Unknown | + + + | Phone | Unavailable | + + + Support + + + + + | Name | Relationship | Address | Phone | + + + + + | Lolly Conrad | ECON | [address] | | | | | [place], [place] | | | | | [address] | | + + + + + | Chun Porter | ECON | [address] | | | | | [place] | | | | | [address] | | + + + + + Care Team Providers + +------+ + | Care Audit Manager Name | Role | Phone | + +------+ + PCP | Unavailable | + +------+ + Encounter Details +--------+ + + + + | Date | Type | Department | Care Team | Description | +--------+ + + + + | 01/23/ | Hospital | [facility] | Srikanth Sawyer MD | | | 2008 | Encounter | MED CTR GENERIC OP | [address], [place] | | | | | CONV DEPT [address] | [address] [place], [place] | | | | | [address] [place], | [address] | | | | | [place] [address] | | | | | | [phone] | | | +--------+ + + + [...]
--- OUTSIDE RECORDS SUMMARY | ~2019-10-14 | XMS | Encounter Summary ---
Demographics + + + | Address | [address] | | | [place] [address] | + + + | Home Phone | | + + + | Preferred Language | Unknown | + + + | Marital Status | | + + + | Faith Affiliation | Unknown | + + + | Race | White | + + + | Ethnic Group | Not or | + + + Author + + + | Author | [facility] | + + + | Organization | [facility] | + + + | Address | Unknown | + + + | Phone | Unavailable | + + + Support + + + + + | Name | Relationship | Address | Phone | + + + + + | Chun Porter | ECON | [address] | | | | | [place] | | | | | [address] | | + + + + + | Katrina Huerta | ECON | Unknown | | + + + + + Care Team Providers + +------+ + | Care Cask Maker Name | Role | Phone | + +------+ + | Kevin Hummel MD | PCP | | + +------+ + Reason for Visit + + + | Reason | Comments | + + + | New patient | Meat Service Team Member saw swelling in macula area of retina | | consultation | | + + + Encounter Details +--------+---------+ + + + | Date | Type | Department | Care Team | Description | +--------+---------+ + + + | 05/05/ | Office | [facility] | Marycruz Osman, | Epiretinal membrane | | 2010 | Visit | [facility] at | [address] | (Primary Dx) | | | | [address] | Trav Person | | | | | [address] | [place], [place] | | | | | [facility] | [address] | | | | | [place], [place] | [phone] | | | | | [address] | | | +--------+---------+ + + + [...] documented as of this encounter Progress Notes Marycruz Osman MD - 05/05/2010 2:48 PM PSTFormatting of this note might be different f rom the original. Retina Division Progress Note New Visit: 05/05/2010 Referred by: Referred by Dr. Gaston Blackwell CC: Patient presents with: New patient consultation - Meat Service Team Member saw swelling in macula area of retina HPI: Vianca Porter is a 64 y.o. female Pt reports, her tea blender, Dr. Pratt, said her macula was swollen and referred her to Kelsy Blackwell. Dr. Blackwell said she didn't need an injection, but rather needed surgery and ref erred her to Dr. Osman. C/o of headaches daily, has had migraines since a teenager. She sta rted taking Nexium a few months ago, thinks the headaches could be from the medication. Pain: No pain (0 of 0-10), but can always "feel" OS. POH: Cataract surgery OU - July & August 2006 ([facility]) Ectropian Eye Surgery OU - 08/17 (Dr. Madrid, [place], [place]) Chronic Dry Eye & Blepharitis Glasses since 1955 (age 9 years) PMH: Reviewed in [facility], + HTN SH: Reviewed in [facility], Tobacco: Never used, Drives, Lives with spouse FH: Positive family history of cataract, glaucoma and diabetes, heart disease, and cancer ROS: A review of constitutional, ophthalmic, otolaryngologic, integumentary, cardiovascular , respiratory, gastrointestinal, genitourinary, neurologic, musculoskeletal, and psychiatric systems were negative except as noted above or in the new patient questionaire., Details of the changes in the eye are described above. Allergies: Allergies Allergen Reactions Penicillin G Tylox (Oxycodone-acetaminophen) Meds: 05/05/2010 levothyroxine (SYNTHROID) 112 mcg Oral Tablet Take 112 mcg by mouth once daily. potassium chloride SR (KLOR-CON M20) 20 mEq Oral Tab Sust.Rel. Particle/Crystal Take 20 mEq by mouth once daily. esomeprazole (NEXIUM) 40 mg Oral Capsule, Delayed Release(E.C.) Take 40 mg by mouth once da nelson in the morning. CYCLOSPORINE (RESTASIS OPHT) Instill in eye. Eye Meds: 05/05/2010 Restasis - BID OU Examination: 05/05/2010 Va cc PH IOP 3:14 PM Right Eye 20/40-1 20/30-1 19 Left Eye 20/40 20/40+2 19 Pupils reactive, No RAPD A&O x 4 Amsler Grid: OD: Normal; OS: Wavy, distorted, & missing corners Both eyes dilated with Mydriacyl and Neosynephrine OU 3:14 PM Initial hx, allergies, meds, Va, IOP and above exam elements reviewed / performed by NURYS EASON OD OS Lids Nl lids, lashes, orbit Nl lids, lashes, orbit Conj White and quiet White and quiet Cornea Nl. tear film, epithelium, stroma, and endothelium Nl. tear film, epithelium, stroma , and endothelium AC Deep and quiet Deep and quiet Iris Normal Normal Lens PCIOL PCIOL Ant Vit Clear + AH DFE OD OS D: 0.2 M: unremarkable P: attached Vasc: Unremarkable Vit: PVD D: 0.2 M: + mild ERM with trace striae, pigmentary changes temp macula P: attached - scleral depressed 360 degrees no holes or tears Vasc: Unremarkable Vit: PVD with asteroid hyalosis Diagnostics Ordered OD OS OCT 05/05/10 CMT: 273 No IRF or SRF CMT: 389 Retinal thickening and striae, + ERM FA 05/05/10 RF: clear media normal retinal vasculature RF: clear media Transit: within no rmal limits an area of focal hyperfluorescence temporal to macula that does not leak later frames. Color 05/05/10 Color fundus photos obtained for documentation & future comparison Color fundus yas tos obtained for documentation & future comparison Others IMPRESSION: 1. ERM OS - with minimal retinal traction and AH - she does note distortion but vision curr ently too good to consider ERM peel - follow for a bit for worsening - would consider surger y when VA<20/50 PLAN: Observe for now Letter to Drs. Pratt and Dr. Blackwell with copies of photos as well to both and patient RTC in [address] Pratt and repeat OCT - refer back to me if VA <20/50 and conside r peel then - discussed at length with patient - she understands and agrees with the plan Umu Nunez MD Ophthalmology Resident [facility] I reviewed all components above, made necessary revisions and performed critical portions o f the history and examination. MARYCRUZ OSMAN MD documented in this encounter Plan of Treatment + + +--------+ + + | Name | Type | Priori | Associated Diagnoses | Order Schedule | | | | ty | | | + + +--------+ + + | COLOR PHOTOGRAPHY | Procedures | Routin | Epiretinal | Expected: | | | | e | membrane | 05/05/2010, Expires: | | | | | | 07/04/2010 | + + +--------+ + + | FLUORESCEIN | Procedures | Routin | Epiretinal | Expected: | | ANGIOGRAM | | e | membrane | 05/05/2010, Expires: | | | | | | 07/04/2010 | + + +--------+ + + | OPTICAL COHERENCE | Procedures | Routin | Epiretinal | Expected: | | TOMOGRAPHY | | e | membrane | 05/05/2010, Expires: | | | | | | 07/04/2010 | + + +--------+ + + documented as of this encounter Procedures + +--------+ + + + | Procedure Name | Priori | Date/Time | Associated Diagnosis | Comments | | | ty | | | | + +--------+ + + + | DC SPECIAL EYE EXAM, | Routin | 05/11/2010 | Epiretinal | | | INITIAL | e | 1:58 PM | membrane | | | | | PST | | | + +--------+ + + + | DC FLUORESCEIN | Routin | 05/11/2010 | Epiretinal | | | ANGIOGRAPHY | e | 1:57 PM | membrane | | | | | PST | | | + +--------+ + + + | DC FLUORESCEIN | Routin | 05/11/2010 | Epiretinal | | | ANGIOGRAPHY | e | 1:57 PM | membrane | | | | | PST | | | + +--------+ + + + documented in this encounter Visit Diagnoses + + | Diagnosis | + + | Epiretinal membrane - Primary Macular puckering of retina | + + documented in this encounter
--- OUTSIDE RECORDS SUMMARY | ~2019-10-14 | XMS | Encounter Summary ---
Demographics + + + | Address | [address] | | | [place] [address] | + + + | Home Phone | | + + + | Preferred Language | Unknown | + + + | Marital Status | | + + + | Anglican Affiliation | Unknown | + + + | Race | Unknown | + + + | Ethnic Group | Unknown | + + + Author + + + | Author | [facility] | | | and [place] | + + + | Organization | [facility] | | | and [place] | + + + | Address | Unknown | + + + | Phone | Unavailable | + + + Support + + + + + | Name | Relationship | Address | Phone | + + + + + | Lolly Conrad | ECON | [address] | | | | | [place], [place] | | | | | [address] | | + + + + + | Chun Porter | ECON | [address] | | | | | [place] | | | | | [address] | | + + + + + Care Team Providers + +------+ + | Care Retort Furnace Helper Name | Role | Phone | + +------+ + | Kevin Hummel MD | PCP | | + +------+ + Encounter Details +--------+ + + + + | Date | Type | Department | Care Team | Description | +--------+ + + + + | 08/29/ | Abstract | [facility] [place] | Florentino Fisher, | | | 2017 | | PHYSIATRY [address] | PA-C [address] | | | | [address] | [address] [place] | | | | | [place], [place] | [place] [address] | | | | | [address] | [phone] | | | | | [phone] | | | +--------+ + + + [...]
--- OUTSIDE RECORDS SUMMARY | ~2019-10-14 | XMS | Encounter Summary ---
Demographics + + + | Address | [address] | | | [place] [address] | + + + | Home Phone | | + + + | Preferred Language | Unknown | + + + | Marital Status | | + + + | Catholic Affiliation | Unknown | + + + | Race | Unknown | + + + | Ethnic Group | Unknown | + + + Author + + + | Author | [facility] | | | and [place] | + + + | Organization | [facility] | | | and [place] | + + + | Address | Unknown | + + + | Phone | Unavailable | + + + Support + + + + + | Name | Relationship | Address | Phone | + + + + + | Lolly Conrad | ECON | [address] | | | | | [place], [place] | | | | | [address] | | + + + + + | Chun Porter | ECON | [address] | | | | | [place] | | | | | [address] | | + + + + + Care Team Providers + +------+ + | Care Operations Management Trainee Name | Role | Phone | + +------+ + | Zackary Tee MD | PCP | | + +------+ + Encounter Details +--------+ + + + + | Date | Type | Department | Care Team | Description | +--------+ + + + + | 11/07/ | Orders Only | [facility] | Provider, | | | 2019 | | SYSTEM GENERIC OP | [address] | | | | | CONVERSION [address] | [address] | | | | | [address] [place], [place] | [place] [address] | | | | | [address] | | | | | | [phone] | | | +--------+ + + + [...]
--- OUTSIDE RECORDS SUMMARY | ~2019-10-14 | XMS | Encounter Summary ---
Demographics + + + | Address | [address] | | | [place] [address] | + + + | Home Phone | | + + + | Preferred Language | Unknown | + + + | Marital Status | | + + + | Sikh Affiliation | Unknown | + + + | Race | Unknown | + + + | Ethnic Group | Unknown | + + + Author + + + | Author | [facility] | | | and [place] | + + + | Organization | [facility] | | | and [place] | + + + | Address | Unknown | + + + | Phone | Unavailable | + + + Support + + + + + | Name | Relationship | Address | Phone | + + + + + | Lolly Conrad | ECON | [address] | | | | | [place], [place] | | | | | [address] | | + + + + + | Chun Porter | ECON | [address] | | | | | [place] | | | | | [address] | | + + + + + Care Team Providers + +------+ + | Care Etl Architect Name | Role | Phone | + +------+ + | Kevin Hummel MD | PCP | | + +------+ + Encounter Details +--------+ + + + + | Date | Type | Department | Care Team | Description | +--------+ + + + + | 06/09/ | Orders Only | [facility] [place] | Jv Meeks | Neck pain (Primary | | 2018 | | NEUROSURGERY [address] | [address] | Dx) | | | | [address] | [address] [place], [place] | | | | | [place] | [address] | | | | | [address] | | | | | | [phone] | | | +--------+ + + + [...] + | Diagnosis | + + | Neck pain - Primary Cervicalgia | + + documented in this encounter"
--- OUTSIDE RECORDS SUMMARY | ~2019-10-14 | XMS | Encounter Summary ---
Demographics + + + | Address | [address] | | | [place] [address] | + + + | Home Phone | | + + + | Preferred Language | Unknown | + + + | Marital Status | | + + + | Baptist Affiliation | Unknown | + + + | Race | Unknown | + + + | Ethnic Group | Unknown | + + + Author + + + | Author | [facility] | | | and [place] | + + + | Organization | [facility] | | | and [place] | + + + | Address | Unknown | + + + | Phone | Unavailable | + + + Support + + + + + | Name | Relationship | Address | Phone | + + + + + | Lolly Conrad | ECON | [address] | | | | | [place], [place] | | | | | [address] | | + + + + + | Chun Porter | ECON | [address] | | | | | [place] | | | | | [address] | | + + + + + Care Team Providers + +------+ + | Care Landing Scaler Name | Role | Phone | + +------+ + | Zackary Tee MD | PCP | | + +------+ + Reason for Visit + +--------+ + | Reason | Onset | Comments | | | Date | | + +--------+ + | Appointment | 09/13/ | | | | 2017 | | + +--------+ + Encounter Details +--------+ + + + + | Date | Type | Department | Care Team | Description | +--------+ + + + + | 09/13/ | Telephone | [facility] | Buck Workman, | Appointment | | 2018 | | NEUROSURGERY [address] | DO [address] | | | | | [address] | [address] [place], [place] | | | | | [place], [place] | [id number] | | | | | [address] | | | | | | [phone] | | | +--------+ + + + [...] this encounter Miscellaneous Notes Telephone Encounter - Ness Bailey L - 09/13/2017 9:05 AM PDTPatient called stated she really isn't having many problems with her neck and doesn't want to have surgery so at this time she is just going to cancel everything but will call to schedule if she begins to have problems again. documente d in this encounter Plan of Treatment Not on filedocumented as of this encounter Visit Diagnoses Not on filedocumented in this encounter"
--- OUTSIDE RECORDS SUMMARY | ~2019-10-14 | XMS | Clinical Summary ---
Demographics + + + | Address | [address] | | | [place] [address] | + + + | Home Phone | | + + + | Preferred Language | Unknown | + + + | Marital Status | | + + + | Gnosticist Affiliation | Unknown | + + + | Race | White | + + + | Ethnic Group | Not or | + + + Author + + + | Author | [facility] | + + + | Organization | [facility] | + + + | Address | Unknown | + + + | Phone | Unavailable | + + + Support + + + + + | Name | Relationship | Address | Phone | + + + + + | Chun Porter | ECON | [address] | | | | | [place] | | | | | [address] | | + + + + + | Katrina Huerta | ECON | Unknown | | + + + + + Care Team Providers + +------+ + | Care Can Bander Operator Name | Role | Phone | + +------+ + | Kevin Hummel MD | PCP | | + +------+ + Source Comments MORAIM[facility] is fully live on both EpicCare Ambulatory and EpicCare InPatient.[facility] Allergies + + + + + + [...]
--- OUTSIDE RECORDS SUMMARY | ~2019-10-14 | XMS | Encounter Summary ---
Demographics + + + | Address | [address] | | | [place] [address] | + + + | Home Phone | | + + + | Preferred Language | Unknown | + + + | Marital Status | | + + + | Holiness Affiliation | Unknown | + + + | Race | Unknown | + + + | Ethnic Group | Unknown | + + + Author + + + | Author | [facility] | | | and [place] | + + + | Organization | [facility] | | | and [place] | + + + | Address | Unknown | + + + | Phone | Unavailable | + + + Support + + + + + | Name | Relationship | Address | Phone | + + + + + | Lolly Conrad | ECON | [address] | | | | | [place], [place] | | | | | [address] | | + + + + + | Chun Porter | ECON | [address] | | | | | [place] | | | | | [address] | | + + + + + Care Team Providers + +------+ + | Care Artist Relationship Manager Name | Role | Phone | + +------+ + | Zackary Tee MD | PCP | | + +------+ + Encounter Details +--------+ + + + + | Date | Type | Department | Care Team | Description | +--------+ + + + + | 06/22/ | Orders Only | [facility] | Bud Madden, | | | 2017 | | [facility] [address] | MD [address] | | | | | [address] | [place] [address] | | | | | [place], [place] | [phone] | | | | | [address] | | | | | | [phone] | | | +--------+ + + + [...] Not on filedocumented as of this encounter Procedures + +--------+ + + + | Procedure Name | Priori | Date/Time | Associated Diagnosis | Comments | | | ty | | | | + +--------+ + + + | XR HAND RIGHT 3 + VW | Routin | 06/22/2017 | | Results for this | | | e | 9:00 AM | | procedure are in the | | | | PDT | | results section. 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 as well as | | | migration of the arthroplasty component | | + + + + + + | Narrative | Performed At | + + + | INDICATION: Right thumb pain COMPARISON: None TECHNIQUE: | | | Multiple views of the right thumb FINDINGS: Right thumb shows | | | severe deformity and migration of a thumb CMC implant arthroplasty | | | with the implant now articulating with the base of the second | | | metacarpal | | + + + + + | Procedure Note | + + | Ricardo Mahmood - 11/30/2018 2:50 PM PDT | | INDICATION: Right thumb pain | | | | COMPARISON: None | | | | TECHNIQUE: Multiple views of the right thumb | | | | FINDINGS: Right thumb shows severe deformity and migration of a thumb CMC | | implant arthroplasty with the implant now articulating with the base of | | the second metacarpal | | | | IMPRESSION: | | 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
--- OUTSIDE RECORDS SUMMARY | ~2019-10-14 | XMS | Encounter Summary ---
Demographics + + + | Address | [address] | | | [place] [address] | + + + | Home Phone | | + + + | Preferred Language | Unknown | + + + | Marital Status | | + + + | Muslim Affiliation | Unknown | + + + | Race | Unknown | + + + | Ethnic Group | Unknown | + + + Author + + + | Author | [facility] | | | and [place] | + + + | Organization | [facility] | | | and [place] | + + + | Address | Unknown | + + + | Phone | Unavailable | + + + Support + + + + + | Name | Relationship | Address | Phone | + + + + + | Lolly Conrad | ECON | [address] | | | | | [place], [place] | | | | | [address] | | + + + + + | Chun Porter | ECON | [address] | | | | | [place] | | | | | [address] | | + + + + + Care Team Providers + +------+ + | Care Braille And Talking Books Clerk Name | Role | Phone | + +------+ + | Kevin Hummel MD | PCP | | + +------+ + Encounter Details +--------+ + + + + | Date | Type | Department | Care Team | Description | +--------+ + + + + | 06/30/ | Hospital | [facility] | Conversion | | | 2018 | Encounter | [facility] | Transaction, | | | | | CLINIC [address] | Provider Unknown | | | | | [address] [place], [place] | | | | | | [address] | (Fax) | | | | | [phone] | | | +--------+ + + + [...] + + + | Blood Pressure | 163/79 | 06/30/2017 9:33 AM | | | | | PDT | | + + + + + | Pulse | 76 | 06/30/2017 9:33 AM | | | | | PDT [...] + + + + | Weight | 52.6 kg (115 lb 15.4 | 06/30/2017 9:33 AM | | | | oz) | PDT | | + + + + + | Height | 149.9 cm (4' 11") | 06/30/2017 9:33 AM | | | | | PDT | | + + + + + | Body Mass Index | 23.42 | 06/30/2017 9:33 AM | | | | | PDT | | + + + + + documented in this encounter Medications at Time [...] | 0 | 04/29/19 | | | (SERGEY-CON M20) 20 | 2 times daily. | [...] + +--------+ + + + | ECG 12 LEAD | Routin | 06/30/2017 | | Results for this | | | e | 9:52 AM | | procedure are in the | | | | PDT | | results section. | + +--------+ + + + documented in this encounter Results ECG 12 lead (06/30/2017 9:52 AM PDT) + + + + + + | Component | Value | Ref Range | Performed | Pathologist | | | | | At | Signature | + + + + + + | DIAGNOSIS: | Normal sinus | | EXTERNAL | | | | rhythmNormal ECGNo | | LAB | | | | previous ECGs | | | | | | availableConfirmed by | | | | | | SHAHNAZ LEONARD MD ([id number]) on | | | | | | 06/30/2017 5:46:16 PM | | | | + + + + + + + + | Specimen | + + | | + + + + + | Narrative | Performed At | + + + | Historically converted procedure from dle Epic environment | EXTERNAL LAB | + + + + +---------+ + + | Performing | Address | City/State/Zipcode | Phone Number | | Organization | | | | + +---------+ + + | EXTERNAL LAB | | | | + +---------+ + + documented in this encounter Visit Diagnoses Not on filedocumented in this encounter
--- OUTSIDE RECORDS SUMMARY | ~2019-10-14 | XMS | Encounter Summary ---
Demographics + + + | Address | [address] | | | [place] [address] | + + + | Home Phone | | + + + | Preferred Language | Unknown | + + + | Marital Status | | + + + | Nondenominational Affiliation | Unknown | + + + | Race | Unknown | + + + | Ethnic Group | Unknown | + + + Author + + + | Author | [facility] | | | and [place] | + + + | Organization | [facility] | | | and [place] | + + + | Address | Unknown | + + + | Phone | Unavailable | + + + Support + + + + + | Name | Relationship | Address | Phone | + + + + + | Lolly Conrad | ECON | [address] | | | | | [place], [place] | | | | | [address] | | + + + + + | Chun Porter | ECON | [address] | | | | | [place] | | | | | [address] | | + + + + + Care Team Providers + +------+ + | Care Tool Planer Set Up Operator Name | Role | Phone | + +------+ + PCP | Unavailable | + +------+ + Reason for Visit +---------+--------+ + | Reason | Onset | Comments | | | Date | | +---------+--------+ + | Results | 05/14/ | | | | 2013 | | +---------+--------+ + Encounter Details +--------+ + + + + | Date | Type | Department | Care Team | Description | +--------+ + + + + | 05/14/ | Telephone | [facility] [place] | Srikanth Sawyer MD | Results | | 2013 | | GASTROENTEROLOGY | [address], [place] | | | | | [address] [facility] | [address] [place] | | | | | [address] [place], [place] | [address] | | | | | [address] | | | | | | [phone] | | | +--------+ + + + [...] Telephone Encounter - Malini Tinsley RN - 05/14/2013 4:29 PM PSTNotified patient th at Valerio study was negative for acid reflux. Dr Sawyer has written a letter to Dr Brady wi th results. She will f/u with him. Electronically signed by Malini Tinsley RN at 05/14 4:34 PM PSTTelephone Encounter - Kirstie Deleon - 05/14/2013 11:40 AM PSTPatient is ca lling for EGD and Valerio results. Please callElectronically signed by Kirstie Deleon at 014 11:41 AM PSTdocumented in this encounter Plan of Treatment Not on filedocumented as of this encounter Visit Diagnoses Not on filedocumented in this encounter"
--- OUTSIDE RECORDS SUMMARY | ~2019-10-14 | XMS | Clinical Summary ---
Demographics + + + | Address | [address] | | | [place] [address] | + + + | Home Phone [...] | Author | [facility] | | | and [place] | + + + | Organization | [facility] | | | and [place] | + + + | Address | Unknown | + + + | Phone | Unavailable | + + + Support + + + + + | Name | Relationship | Address | Phone | + + + + + | Lolly Conrad | ECON | [address] | | | | | [place], [place] | | | | | [address] | | + + + + + | Chun Porter | ECON | [address] | | | | | [place] | | | | | [address] | | + + + + + Care Team Providers + +------+ + | Care Client Account Assistant Name | Role | Phone | + [...] 0 | | | Activ | | [id number] | | | | | | e [...] Noted Date | + + + | Precordial pain | 10/11/2019 | + + + | Essential hypertension | 10/11/2019 | + + + | Acquired hypothyroidism | 10/11/2019 | + + + | Arthritis | 06/22/2017 | + + + + + | Overview: Overview: | | Added automatically from request for surgery [id number] | + + + + + | Chronic pain of right thumb | 06/22/2017 | + + + + + | Overview: Overview: | | Added automatically from request for surgery [id number] | + + Family History + + [...] + + Plan of Treatment + + +-------+ + | Health Maintenance [...] Vaccine: Influenza | | | | | (#1) | 0 | | | + + [...] | [facility] | [facility] | [id number] | 07/11/19 | | | Medica | | | HEALTH | | 09-Pre | | | re | | | MDCR | | sent | | | | + +--------+ +--------+-------+---------+--------+ | [facility] | [facility] | [id number] | 04/11/19 | | | Medica | [...] Vianca Porter | Person | Self | [address] | | [address] | | | al/Fam | | 1946 | [phone] | [place] [address] | | | nelson | | | 4 (Home) | | + +--------+ +--------+ + + | Vianca Porter | Person | Self | [address] | | [address] | | | al/Fam | | 1946 | [phone] | [place] [address] | | | nelson | | | 4 (Home) | | + +--------+ +--------+ + + Advance Directives + + + + + | Type | Date Recorded | Patient | Explanation | | | | Manufacturing Industrial Engineer | | + + + + + | Power of | | | | | Business Solutions Director | | | | + + + + + | Advance | | | | | Directive | | | | + + + + +
--- OUTSIDE RECORDS SUMMARY | ~2019-10-14 | XMS | Encounter Summary ---
Demographics + + + | Address | [address] | | | [place] [address] | + + + | Home Phone | | + + + | Preferred Language | Unknown | + + + | Marital Status | | + + + | Catholic Affiliation | Unknown | + + + | Race | Unknown | + + + | Ethnic Group | Unknown | + + + Author + + + | Author | [facility] | | | and [place] | + + + | Organization | [facility] | | | and [place] | + + + | Address | Unknown | + + + | Phone | Unavailable | + + + Support + + + + + | Name | Relationship | Address | Phone | + + + + + | Lolly Conrad | ECON | [address] | | | | | [place], [place] | | | | | [address] | | + + + + + | Chun Porter | ECON | [address] | | | | | [place] | | | | | [address] | | + + + + + Care Team Providers + +------+ + | Care Fiberglass Model Maker Name | Role | Phone | + +------+ + | Zackary Tee MD | PCP | | + +------+ + Encounter Details +--------+ + + + + | Date | Type | Department | Care Team | Description | +--------+ + + + + | 08/30/ | Hospital | [facility] | Buck Workman, | Back pain, | | 2018 | Encounter | MED CTR XRAY [address] | DO [address] | unspecified back | | | | [place] | [place] [address] [place], [place] | location, | | | | [place] [address] | [address] | unspecified back | | | | [phone] | | pain laterality, | | | [...] | | 0 | | | | [id number] | | | | | | | [...]
--- OUTSIDE RECORDS SUMMARY | ~2019-10-14 | XMS | Encounter Summary ---
Demographics + + + | Address | [address] | | | [place] [address] | + + + | Home Phone | | + + + | Preferred Language | Unknown | + + + | Marital Status | | + + + | Restorationist Affiliation | Unknown | + + + | Race | Unknown | + + + | Ethnic Group | Unknown | + + + Author + + + | Author | [facility] | | | and [place] | + + + | Organization | [facility] | | | and [place] | + + + | Address | Unknown | + + + | Phone | Unavailable | + + + Support + + + + + | Name | Relationship | Address | Phone | + + + + + | Lolly Conrad | ECON | [address] | | | | | [place], [place] | | | | | [address] | | + + + + + | Chun Porter | ECON | [address] | | | | | [place] | | | | | [address] | | + + + + + Care Team Providers + +------+ + | Care Pharmacy Associate Name | Role | Phone | + [...] 2013 | | GASTROENTEROLOGY | [address], [place] | | | | | [address] [place] | [address] [place] | | | | | [address] [place], [place] | [address] | | | | | [address] | | | | | | [phone] | | | +--------+ + + + [...] to make sure that her records from [facility] get sent to Dr. Jose Brady ([facility] in [place]. Patient stated that Dr. Brady is [facility] physician who ordered everything and who referred. documented in this encounter Plan of Treatment Not on filedocumented as of this encounter Visit Diagnoses Not on filedocumented in this encounter"
--- OUTSIDE RECORDS SUMMARY | ~2019-10-14 | XMS | Encounter Summary ---
Demographics + + + | Address | [address] | | | [place] [address] | + + + | Home Phone | | + + + | Preferred Language | Unknown | + + + | Marital Status | | + + + | Gnosticism Affiliation | Unknown | + + + | Race | White | + + + | Ethnic Group | Not or | + + + Author + + + | Author | [facility] | + + + | Organization | [facility] | + + + | Address | Unknown | + + + | Phone | Unavailable | + + + Support + + + + + | Name | Relationship | Address | Phone | + + + + + | Chun Porter | ECON | [address] | | | | | [place] | | | | | [address] | | + + + + + | Katrina Huerta | ECON | Unknown | | + + + + + Care Team Providers + +------+ + | Care Planned Giving Officer Name | Role | Phone | + +------+ + | Kevin Hummel MD | PCP | | + +------+ + Reason for Visit + + + | Reason | Comments | + + + | New patient | Medical Records Coder saw swelling in macula area of retina | | consultation | | + + + Encounter Details +--------+---------+ + + + | Date | Type | Department | Care Team | Description | +--------+---------+ + + + | 05/05/ | Office | [facility] | Marycruz Osman, | Epiretinal membrane | | 2010 | Visit | [facility] | [address] | (Primary Dx) | | | | [address] | Trav Person | | | | | [address] | [place], [place] | | | | | [facility] | [address] | | | | | [place], [place] | [phone] | | | | | [address] | [...] Patient presents with: New patient consultation - Medical Records Coder saw swelling in macula area of retina HPI: Vianca Porter is a 64 y.o. female Pt reports, her core filer, Dr. 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 Madrid, [place], [place]) Chronic Dry Eye & Blepharitis Glasses since 1955 (age 9 years) PMH: Reviewed in [facility], + HTN SH: Reviewed in [facility], Tobacco: Never used, Drives, Lives with [...] the plan Umu Nunez MD Ophthalmology Resident [facility] I reviewed all components above, made necessary [...] | + +--------+ + + + | GA SPECIAL EYE EXAM, | Routin | 05/11/2010 | Epiretinal | | | INITIAL | e | 1:58 PM | membrane | | | | | PST | | | + +--------+ + + + | GA FLUORESCEIN | Routin | 05/11/2010 | Epiretinal | | | ANGIOGRAPHY | e | 1:57 PM | membrane | | | | | PST | | | + +--------+ + + + | GA FLUORESCEIN | Routin | 05/11/2010 | Epiretinal [...]
--- OUTSIDE RECORDS SUMMARY | ~2019-10-14 | XMS | Encounter Summary ---
Demographics + + + | Address | [address] | | | [place] [address] | + + + | Home Phone | | + + + | Preferred Language | Unknown | + + + | Marital Status | | + + + | Faith Affiliation | Unknown | + + + | Race | Unknown | + + + | Ethnic Group | Unknown | + + + Author + + + | Author | [facility] | | | and [place] | + + + | Organization | [facility] | | | and [place] | + + + | Address | Unknown | + + + | Phone | Unavailable | + + + Support + + + + + | Name | Relationship | Address | Phone | + + + + + | Lolly Conrad | ECON | [address] | | | | | [place], [place] | | | | | [address] | | + + + + + | Chun Porter | ECON | [address] | | | | | [place] | | | | | [address] | | + + + + + Care Team Providers + +------+ + | Care Wellness Trainer Name | Role | Phone | + [...] Cervical | Florentino E, | [address] | | | | | radiculopath | PA-C [address] | [place], | | | | | y | [address] | [place] | | | | | Cervicalgia | [address] | [address] | | | | | Hyper | [place], | Phone: | | | | | reflexia | [place] [address] | [phone] | | | | | Procedures | Phone: | Fax: | | | | | MRI Cervical | [phone] | [phone] | | | | | Spine wo | Fax: | | | | | | Contrast | [phone] | | +--------+--------+ + + + + [...] | | | | | disorders, | [place] | [place] | | | | | lumbar | [address] | [address] Phone: | | | | | [place] | [place] | [phone] | | | | | | [place] | Fax: | | | | | | [address] | [phone] | | | | | | Phone: | | | | | | | [phone] | | | | | | | Fax: | | | | | | | [phone] | | +--------+--------+ + + + + Encounter Details +--------+---------+ + + + | Date | Type | Department | Care Team | Description | +--------+---------+ + + + | 08/30/ | Office | [facility] | Florentino Fisher, | Cervical | | 2018 | Visit | NEUROSURGERY [address] | PA-C [address] | radiculopathy | | | | [address] | [address] [place] | (Primary Dx); | | | | [place], [place] | [place] [address] | Scoliosis of lumbar | | | | [address] | [phone] | spine, unspecified | | | | [phone] | | scoliosis type; | | | [...] encounter Patient Instructions Patient Instructions Marixa Nieves, Cigarette Book Maker - 08/30/2017 9:15 AM PDTIt was a [...] f rom the original. ALTAGRACIA Russo [address] [facility] [address] [place] [address] FAX: [phone] NEUROSURGERY HISTORY AND PHYSICAL EXAMINATION CHIEF COMPLAINT: [...] Laterality Date CHOLECYSTECTOMY, LAPAROSCOPIC 2010 DR [facility]ELLO [facility] COLONOSCOPY 2013 [place] EYELID SURGERY Bilateral 08/2008 Ectropion FINGER SURGERY Thumb Joint LUMBAR SPINE SURGERY 1971 [facility] LUMBAR SPINE SURGERY 1978 L2, L3 [facility] THYROIDECTOMY [address] Cabello THYROIDECTOMY, PARTIAL 1968 TONSILLECTOMY AND ADENOIDECTOMY CURRENT MEDICATIONS: Current Outpatient Prescriptions Medication Sig Dispense Refill evivwvc-zsyzufsoaxins-nxanfwwl (EXCEDRIN MIGRAINE) 250-250-65 MG per tablet Take 0.5-1 tablets by mouth every 6 hours as needed for Pain. OOQWAXN-QZHRUFGZV-ZIURFAT D PO Take by mouth. cholecalciferol (VITAMIN [...] has no apparent deficits with short or longterm memory. CRANIAL NERVES: II: Acuity is intact. [...] thumb surgery 5 Ulnar Intrinsics 4 4+ Fruit Checker Strength 5 5 Hip Flexion 5 5 [...] in this encounter Plan of Treatment + +---------+--------+ + + | Name | [...]
--- OUTSIDE RECORDS SUMMARY | ~2019-10-14 | XMS | Encounter Summary ---
Demographics + + + | Address | [address] | | | [place] [address] | + + + | Home Phone [...] Author | [facility] | | | and [place] | + + + | Organization | [facility] | | | and [place] | + + + | Address | Unknown | + + + | Phone | Unavailable | + + + Support + + + + + | Name | Relationship | Address | Phone | + + + + + | Lolly Conrad | ECON | [address] | | | | | [place], [place] | | | | | [address] | | + + + + + | Dillon Porter | ECON | [address] | | | | | [place] | | | | | [address] | | + + + + + Care Team Providers + +------+ + | Care Yeast Pumper Name | Role | Phone | + +------+ + | Zackary Tee MD | PCP | | + +------+ + Reason for Referral Diagnostic/Screening (Routine) + +--------+ + + + + | Status | Reason | Specialty | Diagnoses / | Referred By | Referred To | | | | | Procedures | Contact | Contact | + +--------+ + + + + | Authorized | | | Diagnoses | Odalys, | [facility] | | | | | Chest pain, | DO Marita | [facility] | | | | | unspecified | [address] | | | | | type | [address] | [address] | | | | | Procedures | [place] | [place] | | | | | [place] Nuclear | [place], [place] | [address] | | | | | Stress Test | [id number] | Phone: | | | | | (Vasodilator | Phone: | [phone] | | | | | ) | [phone] | Fax: | | | | | | Fax: | [phone] | | | | | | [phone] | | + +--------+ + + + + Reason for Visit + + + | Reason | Comments | + + + | New Patient | new patient | + + + Evaluate & Treat (Routine) + +--------+ + + + + | Status | Reason | Specialty | Diagnoses / | Referred By | Referred To | | | | | Procedures | Contact | Contact | + +--------+ + + + + | Authorized | | Cardiology | Diagnoses | Nay, | Odalys, | | | | | Chest pain, | Zackary Sosa, | DO Marita | | | | | unspecified | MD [address] | [address] | | | | | Procedures | [address] | DR FISHER | | | | | Consult | [place], | [facility] [place] [place] | | | | | | [place] [address] | [address] Phone: | | | | | | Phone: | [phone] | | | | | | [phone] | Fax: | | | | | | Fax: | [phone] | | | | | | [phone] | | + +--------+ + + + + Encounter Details +--------+---------+ + + + | Date | Type | Department | Care Team | Description | +--------+---------+ + + + | 06/13/ | Office | [facility] | Marita Morrow DO | Chest pain, | | 2019 | Visit | CARDIOLOGY YANIRA | [address] | unspecified type | | | | [address] | [place], [place] | (Primary Dx) | | | | [address] [place] | [address] | | | | | [place] | | | | | | [address] | | | | | | [phone] | | | +--------+---------+ + + + [...] + + + documented in this encounter Progress Notes Marita Morrow DO - 06/14/2019 2:00 PM PST [facility] Cardiology Consult Note Reason for Consultation: Chest pain Requesting Physician: Zackary Tee History Obtained From: patient HISTORY OF PRESENT ILLNESS: The patient is a very pleasant 73-year-old female, who presents to the Cardiology office fo r initial consultation regarding chest pain. The patient has noticed pain in her upper ches t, which began in 08/2018. In 08/2018, she went to the emergency department due to the ches t pain. She was ruled out with EKG and troponins. Since that time, she has noticed intermi ttent chest pains. She denies any specific aggravating or alleviating factors. She notice s that it may get worse whenever she is feeling anxious. She tries to go for 30 minutes wal ks every day, she is limited by issues with arthritis and back pain. She does use 2 canes w hile walking. She has not noticed any replication of the pain when she exerts herself. She has noticed it more in the morning time. It is described as dull and is around a 3-4/10 in intensity. It usually lasts about 30 minutes and resolves spontaneously. She has been ge tting symptoms daily recently. She denies any other associated symptoms with the chest pain . No shortness of breath, palpitations, lightheadedness, diaphoresis. Review of Systems Constitutional: Negative for fatigue. HENT: Negative for nosebleeds. Eyes: Negative for visual disturbance. Respiratory: Negative for cough and shortness of breath. Cardiovascular: see HPI Gastrointestinal: Negative for nausea, vomiting, abdominal pain and blood in stool. Genitourinary: Negative for hematuria or dysuria. Musculoskeletal: Negative for myalgias, positive for back pain and arthralgias. Skin: Negative for color change. Neurological: Negative for syncope and numbness. Hematological: Does not bruise/bleed easily. Psychiatric/Behavioral: The patient is not nervous/anxious. PAST MEDICAL & SURGICAL HISTORY Past Medical History: Diagnosis Date Amnesia Angina pectoris (HCC) Arthralgia Arthritis Backache Cervical disc disorder Disorder of thyroid Dysphagia GERD (gastroesophageal reflux disease) Gout Headache syndrome Hepatitis A Hypertension Hypothyroidism, iatrogenic Lumbago Migraine Neuroma Intermetatarsal Neuromyopathy (HCC) Osteoarthritis Osteoporosis Osteoporosis Other chronic pain Other intervertebral disc disorders, lumbar region PONV (postoperative nausea and vomiting) Primary insomnia Scoliosis Past Surgical History: Procedure Laterality Date CHOLECYSTECTOMY CHOLECYSTECTOMY, LAPAROSCOPIC 2010 DR IRINEO FERNANDO COLONOSCOPY 2012 Irineo COLONOSCOPY EYE SURGERY EYELID SURGERY Bilateral 08/2008 Ectropion FINGER SURGERY Thumb Joint HARDWARE REMOVAL Right 07/05/2017 Procedure: HARDWARE REMOVAL; Surgeon: Bud Madden MD; Location: [facility]; Servi ce: Orthopedics; Laterality: Right; LUMBAR SPINE SURGERY 1971 [place] LUMBAR SPINE SURGERY 1977 L2, L3 [facility] OTHER SURGICAL HISTORY OTHER SURGICAL HISTORY CATARACT EXTRACTION OTHER SURGICAL HISTORY OTHER SURGICAL HISTORY UNLISTED PROCEDURE ARTHROSCOPY OTHER SURGICAL HISTORY Right 07/05/2017 HAND LIGAMENT RECONSTRUCTION - Procedure: LIGAMENT RECONSTRUCTION TENDON INTERPOSITION (LR TI); Surgeon: Bud Madden MD; Location: [facility]; Service: Orthopedics; Laterali ty: Right; SPINE SURGERY THYROID SURGERY THYROIDECTOMY [address] Cabello THYROIDECTOMY, PARTIAL 1967 TONSILLECTOMY AND ADENOIDECTOMY TONSILLECTOMY AND ADENOIDECTOMY UPPER GASTROINTESTINAL ENDOSCOPY MEDICATIONS Home Medications Outpatient Encounter Medications as of 06/14/2019 Medication Sig Dispense Refill hpxrckd-smjwnnwjoawap-khpglnrs (EXCEDRIN MIGRAINE) 250-250-65 MG per tablet Take 0.5-1 tablets by mouth. [DISCONTINUED] cebfjha-vhoawxijhheus-keyfuqmv (EXCEDRIN MIGRAINE) 250-250-65 MG per tab let Take 0.5-1 tablets by mouth every 6 hours as needed for Pain. ECDPSXE-HECIWIQHV-SXUVYWZ D PO Take by mouth. celecoxib (CELEBREX) 100 mg capsule Take 100 mg by mouth Daily. cholecalciferol (VITAMIN D-3) 1,000 units capsule Take 1,000 Units by mouth Daily. ibuprofen (ADVIL, MOTRIN) 200 mg tablet Take 200-400 mg by mouth. [DISCONTINUED] ibuprofen (ADVIL, MOTRIN) 200 mg tablet Take 200-400 mg by mouth every 6 hours as needed for Pain. levothyroxine (SYNTHROID) 112 mcg tablet Take 112 mcg by mouth every morning (before br eakfast). lisinopril (PRINIVIL,ZESTRIL) 2.5 MG tablet Take 2.5 mg by mouth Daily. melatonin 3 mg TABS Take 3 mg by mouth. [DISCONTINUED] melatonin 3 mg TABS Take 3 mg by mouth nightly as needed. Multiple Vitamins-Minerals (MULTIVITAMIN WITH MINERALS) tablet Take 1 tablet by mouth D ailtrevin. potassium chloride (KLOR-CON M20) 20 mEq ER tablet Take 20 mEq by mouth 2 times daily. TURMERIC PO Take by mouth. [DISCONTINUED] zoster recombinant, PF, (SHINGRIX) 50 mcg/0.5 mL vaccine injection No facility-administered encounter medications on file as of 06/14/2019. Allergies Allergies Allergen Reactions Hydrocodone Other (See Comments) Headache Headache Hydromorphone Nausea And Vomiting and Rash Ondansetron Other (See Comments) Headache, constipation Headache, constipation Oxycodone Other (See Comments) Headache Headache Tyloxapol Other (See Comments) and Headache Other reaction(s): Headache Other reaction(s): Other (See Comments) Other reaction(s): Headache Penicillins Itching and Rash Sulfamethoxazole-Trimethoprim Other (See Comments) Reaction not specified in outside medical records Reaction not specified in outside medical records Codeine Other (See Comments) and Headache Headache Other reaction(s): Other (See Comments) Headache FAMILY HISTORY Family History Problem Relation Age of Onset Heart disease Mother Heart attack Mother 81 Colon cancer Father Scoliosis Father Gout Father Autism Brother Thyroid cancer Brother Heart disease Brother Heart disease Maternal Grandmother Scoliosis Maternal Grandfather Mental illness Maternal Grandfather Early Paternal Grandmother 25 Appendicitis Stroke Paternal Grandfather Diabetes Paternal Grandfather Thyroid disease Brother Cancer Other Heart disease Other Diabetes, IDDM Other Hypertension Other Obesity Other Thyroid disease Other Stroke Other Malig hypertherm Neg Hx SOCIAL HISTORY Social History Socioeconomic History Marital status: Spouse name: DILLON PORTER Number of children: 3 Years of education: 18 Highest education level: Not on file Occupational History 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 Social Needs Financial resource strain: Not on file Food insecurity: Worry: Not on file Inability: Not on file Transportation needs: Medical: Not on file Non-medical: Not on file Tobacco Use Smoking status: Never Smoker Smokeless tobacco: Never Used Substance and Sexual Activity Alcohol use: No Drug use: No Comment: Drug use: No Sexual activity: Yes Lifestyle Physical activity: Days per week: Not on file Minutes per session: Not on file Stress: Not on file Relationships Social connections: Talks on phone: Not on file Gets together: Not on file Attends mosque service: Not on file Active member of club or organization: Not on file Attends meetings of clubs or organizations: Not on file Relationship status: Not on file Intimate partner violence: Fear of current or ex partner: Not on file Emotionally abused: Not on file Physically abused: Not on file Forced sexual activity: Not on file Other Topics Concern Not on file Social History Narrative Not on file PHYSICAL EXAM Vital Signs: BP 96/60 | Pulse 83 | Ht 1.499 m (4' 11") | Wt 54.4 kg (120 lb) | SpO2 98% | BMI 24.24 kg/m Physical Exam GENERAL: Well developed, well nourished, in no distress. Appears approximately stated age . HEENT: Normocephalic, atraumatic. EYES: PERRL, sclerae anicteric, no xanthelsasmas NECK: No JVD, lymphadenopathy, thyromegaly, bruits. Carotid pulses are 2+ bilaterally LUNGS: Clear bilaterally, with no rales, rhonchi or wheezing noted, respirations unlabored HEART: Nondisplaced PMI, regular rate and rhythm, S1, S2 normal. No murmurs, rubs or gall ops noted. ABDOMEN: Soft, nontender, no organomegaly, masses or bruits. Bowel sounds are normal in a ll 4 quadrants. EXTREMITIES: No edema. Radial pulses 2+ bilaterally. DP and PT pulses are 2+ bilaterally. SKIN: Warm and dry, capillary refill is normal, no lesions. NEUROLOGIC: Awake, alert and oriented x 3. No focal motor deficits. PSYCHIATRIC: Appropriate, affect appears normal DATA No results found for: WBC, HGB, HCT, PLTNo results found for: INR, PTT No results found for : NA, K, CL, CO2, BUN, CREA, GLUCOSE, MG, AST, ALT, DIGOXIN, BNP, TSHNo results found for: C HOL, TRIG, HDL, LDL, TSH 12/25/2018 total cholesterol 237, triglycerides 85, HDL 72, LDL 148, sodium 140, potassium 3 .8, chloride 103, carbon dioxide 30, glucose 87, BUN 16, creatinine 0.73, calcium 10.0, AST 18, ALT 12, alkaline phosphatase 48, total bilirubin 0.4, TSH 1.12, white blood cell count 4 .8, hemoglobin 15.0, hematocrit 44.5, platelet count 214 EK12/20/2018 normal sinus rhythm 79 bpm, normal EKG. Last Echo: 01/29/2019 Ejection fraction is 60%, no regional wall motion abnormality, no pericardial effusion. Last stress test: Last cath: Carotid US: AAA screening: Lower extremity US: OTHERS: ASSESSMENT & PLAN 1. Chest pain 2. HTN 3. Arthritis -The patient is a very pleasant 73-year-old female who presents to the cardiology office fo r initial consultation regarding chest pain. -Obtain a vasodilator nuclear stress test -Continue lisinopril 2.5 mg by mouth daily -Start aspirin 81 mg by mouth daily -Follow-up in 2 months Thank you for allowing me to participate in the care of this patient. Primary Care Physician: MD Marita Ramon DO 06/19/2019 documented in this enco unter Plan of Treatment + + +--------+ + + | Name | Type | Priori | Associated Diagnoses | Order Schedule | | | | ty | | | + + +--------+ + + | NM Nuclear Stress | Cardiac | Routin | Chest pain, | Expected: | | Test (Vasodilator) | Nuclear | e | unspecified type | 06/21/2019, Expires: | | | Medicine | | | 06/13/2020 | + + +--------+ + + documented as of this encounter Procedures + +--------+ + + + | Procedure Name | Priori | Date/Time | Associated Diagnosis | Comments | | | ty | | | | + +--------+ + + + | ECG 12 LEAD | Routin | 06/14/2019 | Chest pain, | Results for this | | | e | 2:11 PM | unspecified type | procedure are in the | | | | PST | | results section. | + +--------+ + + + documented in this encounter Results ECG 12 lead (06/14/2019 2:11 PM PST) + + + + + + | Component | Value | Ref Range | Performed | Pathologist | | | | | At | Signature | + + + + + + | VENTRICULAR | 84 | BPM | [facility] | | | RATE EKG | | | | | + + + + + + | ATRIAL RATE | 84 | BPM | [facility] | | + + + + + + | P-R | 172 | ms | [facility] | | | INTERVAL | | | | | + + + + + + | QRS | 62 | ms | [facility] | | | DURATION | | | | | + + + + + + | Q-T | 370 | ms | [facility] | | | INTERVAL | | | | | + + + + + + | Q-T | 437 | ms | [facility] | | | INTERVAL | | | | | | (CORRECTED) | | | | | + + + + + + | P WAVE AXIS | 75 | degrees | [facility] | | + + + + + + | QRS AXIS | 70 | degrees | [facility] | | + + + + + + | T AXIS | 68 | degrees | [facility] | | + + + + + + | INTERPRETAT | Normal sinus | | [facility] | | | ION TEXT | rhythmSeptal infarct , | | | | | | age undeterminedAbnormal | | | | | | ECGWhen compared with | | | | | | ECG of 30-JUN-2017 | | | | | | 09:52,Septal infarct is | | | | | | now PresentConfirmed by | | | | | | ODALYS MOLINA, MARITA ([id number]) | | | | | | on 06/14/2019 4:08:35 PM | | | | + + + + + + + + | Specimen | + + | | + + + + + | Narrative | Performed At | + + + | | | + + + + +---------+ + + | Performing | Address | City/State/Zipcode | Phone Number | | Organization | | | | + +---------+ + + | [facility] | | | | + +---------+ + + documented in this encounter Visit Diagnoses + + | Diagnosis | + + | Chest pain, unspecified type - Primary | + + documented in this encounter
--- OUTSIDE RECORDS SUMMARY | ~2019-10-14 | XMS | Encounter Summary ---
Demographics + + + | Address | [address] | | | [place] [address] | + + + | Home Phone [...] | Author | [facility] | | | and [place] | + + + | Organization | [facility] | | | and [place] | + + + | Address | Unknown | + + + | Phone | Unavailable | + + + Support + + + + + | Name | Relationship | Address | Phone | + + + + + | Lolly Conrad | ECON | [address] | | | | | [place], [place] | | | | | [address] | | + + + + + | Chun Porter | ECON | [address] | | | | | [place] | | | | | [address] | | + + + + + Care Team Providers + +------+ + | Care Marketing Education Teacher Name | Role | Phone | + +------+ + PCP | Unavailable | + +------+ + Encounter Details +--------+ + + + + | Date | Type | Department | Care Team | Description | +--------+ + + + + | 04/30/ | Hospital | [facility] | Srikanth Sawyer MD | | | 2013 | Encounter | MED CTR MP INTRA OP | [address], [place] | | | | | [address] | [address] [place], [place] | | | | | [place], [place] | [address] | | | | | [address] | | | | | | [phone] | | | +--------+ + + + [...] Srikanth Sawyer MD - 05/04/2013 8:06 AM [place], [place] [address] Patient Name: JESÚS PORTER Provider: Srikanth Sawyer MD Unit #: [id number] Location: [facility] : 1945 DATE: 05/04/2013 PROCEDURE A 48-hour [...] BY: Srikanth Sawyer MD Gastroenterology JOB #: [id number] EXT JOB #:[id number] <<Signature on File>> Srikanth Sawyer MD [id number] <Electronically signed by Srikanth Sawyer MD> p Note - Lincoln Sawyer MD - 04/30/2013 9:52 [place] [address] Patient Name: JESÚS PORTER Provider: Srikanth Sawyer MD Unit #: [id number] Location: [facility] #: [id number] : 1945 Gastroenterology Patient Name: Jesús Porter Procedure Date: 04/30/2013 9:52 AM Date of : 1945 Admit Type: Outpatient Age: 67 Room: Endo Room 1 Gender: Female Note Status: Finalized Attending MD: Srikanth Sawyer MD Procedure: Upper GI endoscopy Indications: Suspected esophageal reflux, For therapy of esophageal reflux, Failure to respond to medical treatment Providers: Joaquin Sawyer MD, Kerrie Pineda RN, Madiha Sommer, Mangle Operator Garments Referring MD: Kevin Humeml MD (Referring MD) Medicines: Midazolam 2 mg [...] by the physician, the nurse and the bicycle repair technician in the endoscopy suite. Mental Status [...] 0 Note Initiated On: 04/30/2013 9:52 AM [facility] [place] [address] Srikanth Sawyer MD 1047 documented in this e ncounter Plan of Treatment Not on filedocumented as [...] GASTRIC | Negative for Urease | | [facility] | | | BIOPSY | | | [facility] | | | UREASE TEST | | [...] + | [facility] | [address] | [place] | [phone] | | [facility] | | [address] | | | - LABORATORY | | | | + + + + + | [facility] | [address] | [place], [place] | | | [facility] | | [address] | | | - LABORATORY | | [...] | Negative for Urease | | [facility] | | | UREASE TEST | [...] biopsy | [facility] | | | [facility] | | | - LAB[facility]ATORY | + + + + + + + + | Performing | Address | City/State/Zipcode | Phone Number | | Organization | | | | + + + + + | [facility] | [address] | [place] | [phone] | | [facility] | | [address] | | | - LABORATORY | | | | + + + + + | [facility] | [address] | [place] | | | [facility] | | [address] | | | - LABORATORY | | | | + + + + + documented in this encounter Visit Diagnoses Not on filedocumented in this encounter"
--- OUTSIDE RECORDS SUMMARY | ~2019-10-14 | XMS | Encounter Summary ---
Demographics + + + | Address | [address] | | | [place] [address] | + + + | Home Phone | | + + + | Preferred Language | Unknown | + + + | Marital Status | | + + + | Anglican Affiliation | Unknown | + + + | Race | Unknown | + + + | Ethnic Group | Unknown | + + + Author + + + | Author | [facility] | | | and [place] | + + + | Organization | [facility] | | | and [place] | + + + | Address | Unknown | + + + | Phone | Unavailable | + + + Support + + + + + | Name | Relationship | Address | Phone | + + + + + | Lolly Conrad | ECON | [address] | | | | | [place], [place] | | | | | [address] | | + + + + + | Chun Porter | ECON | [address] | | | | | [place] | | | | | [address] | | + + + + + Care Team Providers + +------+ + | Care Negative Cutter Name | Role | Phone | + +------+ + PCP | Unavailable | + +------+ + Encounter Details +--------+ + + + + | Date | Type | Department | Care Team | Description | +--------+ + + + + | 02/10/ | Hospital | [facility] | | | | 1999 | Encounter | MED CTR GENERIC OP | | | | | | CONV DEPT [address] | | | | | | [place], | | | | | | [place] [address] | | | | | | [phone] | | | +--------+ + + + [...]
--- OUTSIDE RECORDS SUMMARY | ~2019-10-14 | XMS | Clinical Summary ---
Demographics + + + | Address | [address] | | | [place] [address] | + + + | Home Phone | | + + + | Preferred Language | Unknown | + + + | Marital Status | | + + + | Sabianism Affiliation | Unknown | + + + | Race | White | + + + | Ethnic Group | Not or | + + + Author + + + | Author | [facility] | + + + | Organization | [facility] | + + [...] [place] | | | | | [address] | | + + + + + | Katrina Huerta | ECON | Unknown | | + + + + + Care Team Providers + +------+ + | Care Fur Sorter Name | Role | Phone | + +------+ + | Kevin Hummel MD | PCP | | + +------+ + Source Comments MORAIMAHILLARY is fully live on both EpicCare Ambulatory and EpicCare InPatient.[facility] Allergies + + + + + + [...]
--- OUTSIDE RECORDS SUMMARY | ~2019-10-14 | XMS | Encounter Summary ---
Demographics + + + | Address | [address] | | | [place] [address] | + + + | Home Phone [...] + + + | Author | [facility] | + + + | Organization | [facility] | + + + | Address | Unknown | + + + | Phone | Unavailable | + + + Support + + + + + | Name | Relationship | Address | Phone | + + + + + | Chun Porter | ECON | [address] | | | | | [place] | | | | | [address] | | + + + + + | Katrina Huerta | ECON | Unknown | | + + + + + Care Team Providers + +------+ + | Care Production Specialist Name | Role | Phone | [...] membrane | | 2010 | Visit | [place] | | | | | | Photography at | | | | | | [facility] [address] | | | | [address] | | | | | | [facility] [place], 4th | | | | | | floor [place], [place] | | | | | | [address] | | | +--------+---------+ + + + [...] PSTCarelan Sydnee Porter was seen in the [facility] te Photography/Ultrasound Department today, 05/05/2010, for fluorescein, fundus photography a nd OCT ou. ps documented in this enc ounter Plan of Treatment Not on filedocumented as of this encounter Visit Diagnoses + + | Diagnosis | + + | Epiretinal membrane Macular puckering of retina | + + documented in this encounter"
--- OUTSIDE RECORDS SUMMARY | ~2019-10-14 | XMS | Encounter Summary ---
Demographics + + + | Address | [address] | | | [place] [address] | + + + | Home Phone | | + + + | Preferred Language | Unknown | + + + | Marital Status | | + + + | Taoism Affiliation | Unknown | + + + | Race | Unknown | + + + | Ethnic Group | Unknown | + + + Author + + + | Author | [facility] | | | and [place] | + + + | Organization | [facility] | | | and [place] | + + + | Address | Unknown | + + + | Phone | Unavailable | + + + Support + + + + + | Name | Relationship | Address | Phone | + + + + + | Lolly Conrad | ECON | [address] | | | | | [place], [place] | | | | | [address] | | + + + + + | Chun Porter | ECON | [address] | | | | | [place] | | | | | [address] | | + + + + + Care Team Providers + +------+ + | Care Bow Maker Machine Tender Name | Role | Phone [...] | | | | | | | [address] | | +--------+--------+ + + + + [...] | [address] [place] | [place] [address] | | | | | [place] [address] | | | | | | [phone] | | | +--------+ + + + [...] for comparison only - no result from [place]. | [facility] | + + + + +---------+ + + | Performing | Address | City/State/Zipcode | Phone Number | | Organization | | | | + +---------+ + + | [facility] | | | | + +---------+ + + documented in this encounter Visit Diagnoses Not on filedocumented in this encounter"
--- OUTSIDE RECORDS SUMMARY | ~2019-10-14 | XMS | Encounter Summary ---
Demographics + + + | Address | [address] | | | [place] [address] | + + + | Home Phone | | + + + | Preferred Language | Unknown | + + + | Marital Status | | + + + | Jain Affiliation | Unknown | + + + | Race | Unknown | + + + | Ethnic Group | Unknown | + + + Author + + + | Author | [facility] | | | and [place] | + + + | Organization | [facility] | | | and [place] | + + + | Address | Unknown | + + + | Phone | Unavailable | + + + Support + + + + + | Name | Relationship | Address | Phone | + + + + + | Lolly Conrad | ECON | [address] | | | | | [place], [place] | | | | | [address] | | + + + + + | Chun Porter | ECON | [address] | | | | | [place] | | | | | [address] | | + + + + + Care Team Providers + +------+ + | Care Train Reservation Clerk Name | Role | Phone | [...] | | | | [address] | [place] [address] | | | | | [place], [place] | [phone] | | | | | [address] | | | | | | [phone] | | | +--------+ + + + [...]
--- OUTSIDE RECORDS SUMMARY | ~2019-10-14 | XMS | Encounter Summary ---
Demographics + + + | Address | [address] | | | [place] [address] | + + + | Home Phone | | + + + | Preferred Language | Unknown | + + + | Marital Status | | + + + | Congregational Affiliation | Unknown | + + + | Race | Unknown | + + + | Ethnic Group | Unknown | + + + Author + + + | Author | [facility] | | | and [place] | + + + | Organization | [facility] | | | and [place] | + + + | Address | Unknown | + + + | Phone | Unavailable | + + + Support + + + + + | Name | Relationship | Address | Phone | + + + + + | Lolly Conrad | ECON | [address] | | | | | [place], [place] | | | | | [address] | | + + + + + | Chun Porter | ECON | [address] | | | | | [place] | | | | | [address] | | + + + + + Care Team Providers + +------+ + | Care Tree Wrapper Name | Role | Phone | + +------+ + PCP | Unavailable | + +------+ + Encounter Details +--------+ + + + + | Date | Type | Department | Care Team | Description | +--------+ + + + + | 10/05/ | Hospital | [facility] | Constantine Casillas | | | 2000 | Encounter | MED CTR GENERIC OP | [address], [address] | | | | | CONV DEPT [address] | [place], [place] | | | | | [place], | [address] | | | | | [place] [address] | | | | | | [phone] | | | +--------+ + + + [...]
[~2019-10-14 12:59] MED LIST changes: +DOK PLUS TABLE1 EACH PO; +ESCITALOPRAM OXA5 MG PO; +FAMOTIDINE20 MG PO; +GENTLE LAXATIVE10 MG PR; +LEVOTHYROXINE88 MCG PO; +LISINOPRIL2.5 MG PO; +NUCYNTA75 MG PO; +POLYETHYLENE GL17 GM PO; +POTASSIUM CHLO20 ME1 PO; +TROSPIUM CHLORI20 MG PO; +ULTRAM50 MG PO
--- OUTSIDE RECORDS SUMMARY | 2019-10-14 13:02 | XMS ---
PreManage Notification: JESÚS FELIX Security Relocation Services Specialist Events No recent Security Events currently on file CRITERIA MET - [facility] - Has Care Guidelines - [facility] - 2 Visits in 30 Days CARE PROVIDERS DAKOTAH NICHOLAS Internal Medicine 10/20/2018-Current PHONE: Unknown Dana has no Care Guidelines for this patient. Care History Medical/Surgical 10/09/2019 [facility] Patient was admitted.\T\nbsp; She will set up follow up visit with Dr. Nicholas when she gets home. 10/20/2018 [facility] - Patient is currently established with [facility]. If patient is seen in the ED during business hours. Please contact [facility] at [facility]. Care Recommendation: This patient has had [...] care. E.D. VISIT COUNT (12 MO.) [address] [facility]. TOTAL 6 NOTE: Visits indicate total known visits. ED/UCC VISIT TRACKING (12 MO.) 10/14/2019 13:00 [facility] [place] TYPE: Emergency COMPLAINT: - LEFT SHOULDER PAIN 10/06/2019 10:50 [facility] [place] TYPE: Emergency COMPLAINT: - FALL 12/20/2018 03:25 [facility] [place] TYPE: Emergency COMPLAINT: - CHEST PAIN DIAGNOSES: - Other [facility]p (current) drug therapy - Allergy status to [...] Allergy status to sulfonamides status - Other [facility] (current) drug therapy - Pain in thoracic spine - Allergy status to narcotic agent status - Allergy status to penicillin 10/19/2018 11:20 [facility] [place] TYPE: Emergency COMPLAINT: - HEADAHCE,DIZZINESS DIAGNOSES: - Dizziness and giddiness - Headache 10/19/2018 09:53 [facility] [place] TYPE: Emergency COMPLAINT: - HEADACHE, THROAT PAIN DIAGNOSES: - Headache INPATIENT VISIT TRACKING (12 MO.) 10/08/2019 14:19 [facility] [place] TYPE: Medical Surgical COMPLAINT: - LEFT HUMERUS FRACTURE/INTRACTABLE PAIN DIAGNOSES: - Allergy status to narcotic agent status - Hypothyroidism, unspecified - Allergy status to other antibiotic agents status - Allergy status to sulfonamides status - Unspecified fracture of shaft of humerus, left arm, initial e - Fall from chair, initial encounter - 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
== END 2019-10-14 14:39 | disposition home or self-care (01) ==
LOC: ED 12:59
DX: S60.222A Contusion of left hand, initial encounter (principal); S42.302D Unspecified fracture of shaft of humerus, left arm, subsequent encounter for fracture with routine healing; Z88.0 Allergy status to penicillin; Z88.5 Allergy status to narcotic agent; Z88.1 Allergy status to other antibiotic agents; Z79.899 Other long term (current) drug therapy; X58.XXXA Exposure to other specified factors, initial encounter
CPT/HCPCS: 99283

== ENCOUNTER 2022-07-18 03:37 | Emergency (ER) | payer MEDICARE ==
[~2022-07-18] VITALS: Ht 154.9 cm; Wt 68.0 kg
[~2022-07-18 03:37] MED LIST changes: +HYDROCODON-ACE1 EA10 PO
[2022-07-18] MEDS ORDERED: SOLIFENACIN SUC10 MG PO (03:54)
[2022-07-18] MEDS ORDERED: ALENDRONATE SOD70 MG PO (03:54)
--- NOTE | 2022-07-18 22:48 | EKG ---
[facility] [address] [facility] [address] [place] [address] Signed Normal sinus rhythm Normal ECG When compared with ECG of 20-DEC-2018 03:32, No significant change was found Confirmed by Paris Pardo MD () on 07/18/2022 10:47:55 PM Electronically Signed By: PARIS PARDO MD 07/18/22 2248 PATIENT NAME: JESÚS FELIX Electrocardiogram DATE OF : 41 PHYSICIAN: PARIS PARDO MD REPORT #: [id number] REPORT IS CONFIDENTIAL AND NOT TO BE RELEASED WITHOUT AUTHORIZATION
== END 2022-07-18 05:08 | disposition home or self-care (01) ==
LOC: ED 03:37
DX: R00.2 Palpitations (principal); Z88.0 Allergy status to penicillin; Z88.8 Allergy status to other drugs, medicaments and biological substances; Z88.5 Allergy status to narcotic agent; Z79.899 Other long term (current) drug therapy; Z79.890 Hormone replacement therapy
CPT/HCPCS: 36415; 71045; 80053; 83735; 83880; 84443; 84484; 85025; 85610; 93005; 93010; 99285-25

== ENCOUNTER 2023-01-15 08:43 | Emergency (ER) | payer MEDICARE ==
[~2023-01-15] VITALS: Ht 157.5 cm; Wt 68.0 kg
[~2023-01-15 08:43] MED LIST changes: +ALENDRONATE SOD70 MG PO; +SOLIFENACIN SUC10 MG PO
[2023-01-15 10:07] LABS: BASOPHILS 0.2 % (0-2); EOSINOPHILS 0.1 % (0-6); HEMATOCRIT 38.6 % (35.0-50.0); HEMOGLOBIN 13.3 g/dL (12.0-18.0); LYMPHOCYTES 9.5 % (24-44); MCH 31.2 (27-36); MCHC 34.6 g/dl (30-36); MCV 90.2 fl (81-99); MONOCYTES 6.2 % (0-12); PLATELET COUNT 212 K/uL (140-440); RBC 4.28 M/ul (4.3-5.7); RDW 13.5 (10.5-15.0)
[2023-01-15 10:19] LABS: ALBUMIN 3.9 g/dL (3.4-5.0); ALBUMIN/GLOBULIN RATIO 1.03 (1.1-2.4); BILIRUBIN, TOTAL 0.7 ng/dL (0.2-1.0); BUN/CREATININE RATIO 20.83 (6.0-28.6); CALCIUM 8.8 mg/dL (8.5-10.1); CREATININE, SERUM 0.72 mg/dL (0.55-1.02); PROTEIN, TOTAL 7.7 g/dL (6.4-8.2)
[2023-01-15 10:23] LABS: ANION GAP 12.2 (7-21); POTASSIUM 3.2 mmol/L (3.5-5.1)
[2023-01-15] MEDS ORDERED: TRAMADOL HCL50 MG PO (11:50)
[2023-01-15 12:25] VITALS: BP 158/76
== END 2023-01-15 12:25 | disposition home or self-care (01) ==
LOC: ED 08:43
PROVIDERS: Internal Medicine
DX: S13.9XXA Sprain of joints and ligaments of unspecified parts of neck, initial encounter (principal); S43.401A Unspecified sprain of right shoulder joint, initial encounter; S09.90XA Unspecified injury of head, initial encounter; W18.30XA Fall on same level, unspecified, initial encounter; F03.90 Unspecified dementia, unspecified severity, without behavioral disturbance, psychotic disturbance, mood disturbance, and anxiety; Z88.0 Allergy status to penicillin; Z88.5 Allergy status to narcotic agent; Z88.8 Allergy status to other drugs, medicaments and biological substances; Z88.2 Allergy status to sulfonamides; Z88.1 Allergy status to other antibiotic agents; Z79.899 Other long term (current) drug therapy
CPT/HCPCS: 36415; 70450; 72125; 73030; 80053; 85025; 99284-25

== ENCOUNTER 2023-05-05 12:46 | Emergency (ER) | payer MEDICARE ==
[2023-05-05 14:34] VITALS: BP 140/75
== END 2023-05-05 14:36 | disposition home or self-care (01) ==
LOC: ED 12:46
DX: K22.2 Esophageal obstruction (principal); Z88.0 Allergy status to penicillin; Z88.6 Allergy status to analgesic agent; Z88.5 Allergy status to narcotic agent; Z88.8 Allergy status to other drugs, medicaments and biological substances; Z88.2 Allergy status to sulfonamides; Z88.1 Allergy status to other antibiotic agents; Z79.899 Other long term (current) drug therapy; Z79.890 Hormone replacement therapy
CPT/HCPCS: 99284

== ENCOUNTER 2023-08-22 04:54 | Inpatient (IN) | payer MEDICARE ==
[~2023-08-22] VITALS: Ht 157.5 cm; Wt 72.0 kg
[~2023-08-22 04:54] MED LIST changes: -VITAMIN C250 M1 PO; +VITAMIN C500 M1 PO; +VITAMIN D3125 MC2 PO; -VITAMIN D325 MC1 PO
[2023-08-22] MEDS ORDERED: LACTATED RINGER'S 1,000 ML IV ONE (05:30)
[2023-08-22] MEDS ORDERED: fentaNYL citrate 100 MCG/2 ML VIAL IV PRN (05:30)
[2023-08-22 05:32] LABS: HEMOGLOBIN 13.1 g/dL (12.0-18.0); MCH 30.7 (27-36); MCHC 33.5 g/dl (30-36); MCV 91.9 fl (81-99); PLATELET COUNT 278 K/uL (140-440); RBC 4.25 M/ul (4.3-5.7); RDW 13.3 (10.5-15.0)
[2023-08-22 05:44] LABS: ALBUMIN 3.6 g/dL (3.4-5.0); ALBUMIN/GLOBULIN RATIO 1.03 (1.1-2.4); ANION GAP 19.8 (7-21); BILIRUBIN, TOTAL 0.3 ng/dL (0.2-1.0); BUN/CREATININE RATIO 15.21 (6.0-28.6); CALCIUM 8.6 mg/dL (8.5-10.1); CREATININE, SERUM 1.84 mg/dL (0.55-1.02); POTASSIUM 4.8 mmol/L (3.5-5.1); PROTEIN, TOTAL 7.1 g/dL (6.4-8.2)
[2023-08-22] MEDS ORDERED: ALBUTEROL SULFATE 0.5% 2.5 MG/0.5 ML VIAL INH ONE (06:00)
[2023-08-22] MEDS ORDERED: ACETAMINOPHEN 650 MG SUPP PR ONE (06:00)
[2023-08-22 06:01] LABS: EOSINOPHILS, MANUAL DIFF 1; MONOCYTES, MANUAL DIFF 4; NEUTROPHILS, MANUAL DIFF 37; OTHER, MANUAL DIFF 3
[2023-08-22 07:06] LABS: BILIRUBIN, URINE NEGATIVE (negative); BLOOD/HGB, URINE MODERATE (Negative); KETONE, URINE NEGATIVE (Negative); LEUK ESTERASE, URINE TRACE (negative); NITRITE, URINE NEGATIVE (negative)
[2023-08-22 07:16] LABS: WHITE BLOOD CELLS, URINE >50 /HPF (0-5)
[2023-08-22 07:19] LABS: BACTERIA, URINE RARE /hpf (negative); CASTS, URINE NONE SEEN \\lpf; COLLECTION TYPE, URINE CLEAN CATCH; CRYSTALS, URINE NONE SEEN (0-1+); REFLEX CULTURE, URINE No (No)
[2023-08-22] MEDS ORDERED: LIDOCAINE 2% VISCOUS 6 ML SYR TOP ONE (07:30)
[2023-08-22] MEDS ORDERED: SODIUM CHLORIDE 0.9% 1,000 ML IV PRN (07:45)
--- NOTE | 2023-08-22 08:45 | NUR ---
ER REQUESTING CONSULT REAGRDING HOSPICE CARE FOR THE PATIENT AT THIS TIME. DOWN TO ROOM, PATIENTS DAUGHTER LEN AT THE BEDSIDE. DISCUSSED THE REFERRAL PROCESS TO HOSPICE, THE PATIENT RETURN TO [facility] ON HOSPICE SERVICES AND LOCAL HOSPICE COMPANIES. LEN STATES SHE IS THE PATIENT POA, BUT WOULD LIKE TO WAIT FOR HER SISTER SELENA TO ARRIVE WHO IS TRAVELING DOWN FROM [place]. LEN STATES HER BROTHER IS ALSO FLYING IN FROM [facility] THIS AFTERNOON. LEN DISCUSSING THAT IT IS DIFFICULT FOR HER TO MAKE A DECISION REGARDING CARE EVEN THOUGH THE PATIENT IS REPORTED TO BE COMFORT MEASURES ONLY. DR. ANTOINE ENTERS THE ROOM. DISCUSSING CT IS NEGATIVE. PATIENT DAUGHTER AND DR. ANTOINE DISCUSSING FURTHER TESTING. WILL RETURN TO SPEAK WITH PATIENT, LEN AND FAMILY WHEN THEY ARRIVE.
--- NOTE | 2023-08-22 09:30 | NUR ---
AFTER REVIEWING THE PATIENTS PCI, POLST ON FILE NOTED TO BE FOR DNR/DNI WITH LIMITED INTERVENTIONS. CALLED [facility], SPOKE WITH EDUARDA COLLINS WHO CONFIRMS THE POLST THEY HAVE ON FILE IS THE SAME. DOWN TO THE ER, ADVISED DR. ANTOINE OF PATIENTS POLST STATUS. DR. ANTOINE TO DISCUSS WITH PATIENT FAMILY TO DETERMINE FURTHER TREATMENT.
[2023-08-22] MEDS ORDERED: CEFTRIAXONE/SODIUM CHLORIDE 2 GM/100 ML PIGGYBACK IV ONE (09:45)
[2023-08-22] MEDS ORDERED: SODIUM CHLORIDE 0.9% 500 ML IV PRN (10:00)
[2023-08-22] MEDS ORDERED: SODIUM CHLORIDE 0.9% 1,000 ML IV SCH (11:15)
[2023-08-22] MEDS ORDERED: ACETAMINOPHEN 325 MG TAB PO PRN (11:15)
[2023-08-22] MEDS ORDERED: PHARMACY RENAL DOSE ADJUSTMENT 1 DOSE MISC PO SCH (12:00)
[2023-08-22] MEDS ORDERED: OMEPRAZOLE40 MG PO (12:08)
[2023-08-22 12:25] VITALS: BP 132/55
--- NOTE | 2023-08-22 12:39 | NUR ---
PT TO MED-SURG 4 PERSON ASSIST TO BED. CEE CATH WAS NOT IN URETHRA WHEN CHECKED NEW CATH INSERTED. PT JL CARE COMPLETED, PLACEMENT OF RECTAL TUBE CONFIRMED. HEELS ARE FLOATED ORAL CARE DONE PT POSITIONED FOR COMFORT.
[2023-08-22 12:40] LABS: BILIRUBIN, URINE NEGATIVE (negative); BLOOD/HGB, URINE MODERATE (Negative); KETONE, URINE NEGATIVE (Negative); LEUK ESTERASE, URINE NEGATIVE (negative); NITRITE, URINE NEGATIVE (negative); PH, URINE 5.5 (5-7)
[2023-08-22 12:50] LABS: BACTERIA, URINE NONE SEEN /hpf (negative); CASTS, URINE GRANULAR 1+ \\lpf; CRYSTALS, URINE NONE SEEN (0-1+); EPITHELIAL CELLS, URINE OCCASIONAL /lpf (0-1+); WHITE BLOOD CELLS, URINE 0-1 /HPF (0-5)
[2023-08-22 12:51] LABS: COLLECTION TYPE, URINE CATH; REFLEX CULTURE, URINE No (No)
[2023-08-22] MEDS ORDERED: MICONAZOLE NITRATE 1 EA BTL TOP SCH (13:11)
--- NOTE | 2023-08-22 13:16 | NUR ---
FAMILY X3 PRESENT IN ROOM PT RESTING QUIETLY NO VERBAL RESPONSE. PT MAKES EYE CONTACT WHEN APPROACHED FROM LEFT SIDE. 02 SATS 98% ON ROOM AIR 02 DC'D. COLEMAN DRAINING CLEAR YELLOW URINE. FAMILY ORIENTED TO CALL LIGHT AND ROOM CONTROLS ENCOURAGED TO CALL FOR ANY QUESTIONS OR CONCERNS
--- NOTE | 2023-08-22 13:46 | NUR ---
VISITED DURING SPIRITUAL CARE ROUNDS. FAMILY IN ROOM DENIED IMMEDIATE NEEDS. PROVIDED SUPPORTIVE PRESENCE, HOSPITALITY, PRAYER. FAMILY EXPRESSED APPRECIATION.
--- NOTE | 2023-08-22 14:42 | NUR ---
PT CONTINUES TO REST QUIETLY FAMILY AT BEDSIDE. SCD'S PLACED PER ORDRS
[2023-08-22] MEDS ORDERED: ACETAMINOPHEN 650 MG SUPP PR PRN (15:00)
--- NOTE | 2023-08-22 15:03 | NUR ---
JL CARE COMPLETED PT REPOSITIONED FOR PRESSURE RELIEF.
--- NOTE | 2023-08-22 15:24 | NUR ---
SPOKE WITH TRAINING AND DEVELOPMENT OFFICER R/T PT HX. DOCTOR WELL FAMILY NOTIFIED NO MRI POSSIBLE DUE TO COIL PLACED IN PRIOR SURGERY. ORAL CARE PROVIDED SEVERAL FAMILY MEMBERS ARE PRESENT AT THIS TIME
--- NOTE | 2023-08-22 15:42 | NUR ---
ASSESSMENT COMPLETE. PT APPEARS MORE RESPONSIVE THAN AT ADMIT. SHE IS NOW MAKING EYE CONTACT AND SMILES AT SPECIFIC FAMILY MEMBERS. DOES NOT FOLLOW COMMMANDS TO MOVE EXTREMETIES OR OTHER INSTRUCTIONS. ORAL CARE PROVIDED, REPOSITIONED, NO SIGNS OF PAIN. CONTACTED EDVIN R/T TYLENOL UNABLE TO GIVE PO OR IA, WOULD LIKE TO CONTINUE REGULAR DOSE DUE TO LOW GRADE TEMP AND PT HX OF BACK PAIN REPORTED BY FAMILY. IV SITE IS GOOD, REVIEWED S/S OF PROBLEM WITH FAMILY WHO ARE AT BEDSIDE COMFORTING PT HOLDING HANDS AND STROKING ARMS. REMINDED FAMILY TO CALL FOR ANY CONCERNS, QUESTIONS, OR NEEDS
[2023-08-22] MEDS ORDERED: ACETAMINOPHEN 1,000 MG/100 ML VIAL IV ONE (15:45)
[2023-08-22 15:53] VITALS: BP 135/59
[2023-08-22] MEDS ORDERED: VANCOMYCIN HCL 125 MG CAP PO SCH (17:00)
--- NOTE | 2023-08-22 17:27 | NUR ---
ORAL CARE DEMONSTRATED FOR FAMILY WHO WANT TO PARTICIPATE IN PT CARE. STOOL SAMPLE COLLECTED AND PT REPOSITIONED FOR PRESSURE RELIEF.
[2023-08-22 18:04] VITALS: BP 107/83
[2023-08-22 20:03] VITALS: BP 127/57
[2023-08-22 20:04] VITALS: BP 127/57
--- NOTE | 2023-08-22 20:36 | NUR ---
ASSISTED RN WITH PT CARES. DIRECTOR OF STRATEGIC ALLIANCES HELPED STACK PILLOWS UNDERNEATH THE PT, PERINEAL CARE, APPLIED BARRIER CREAM, AND REPLACED CHUCKS THAT WERE UNDERNEATH PT. PT RECTAL TUBE HAD FALLEN OUT. RN REINSERTED TUBE. PT WAS REPOSITIONED AND GIVEN A WARM BLANKET. PT WAS RESPONDING BETTER THAN SHE HAS TODAY. PT WAS ABLE TO NOD HER HEAD, AND RESPOND VERBALLY. PT WAS ABLE TO SAY "OKAY" WHEN DIRECTOR OF STRATEGIC ALLIANCES WAS EXPLAINING TO HER WHAT THE RN AND DIRECTOR OF STRATEGIC ALLIANCES WERE DOING WITH HER. PT WAS ALSO ABLE TO DO A SLIGHT LAUGH. CALL LIGHT IS WITHIN REACH.
--- NOTE | 2023-08-22 20:40 | NUR ---
Pt on enteric contact precautions. IVF infusing, field start LAC patent. On room air, lungs dim at baes, unable to follow instructions. slight redness under breast and pannus, armando area very red with large amont of whitish vaginal drainage. NATTY. rectal tube was out, reinserted w 34cc fluid balloon. had to be reinserted afterwarda as it came out again. turned and repositioned and stayed in place.. f/c patent. draining dark yellow urine. pericare and f/c care done. SCD's bilat in place, edema to both ankles, R more than right. Oral care done, all procedures explained. pt tries to answer. was cooperative with instructions. Tolerated well, tried to and did grab rails. moaned twice then calm. hob elevated, aspiration and fall precautions in place. family in room.
--- NOTE | 2023-08-22 22:44 | EKG ---
[facility] [address] [facility] [place] [address] Signed Sinus tachycardia Nonspecific ST abnormality Abnormal ECG When compared with ECG of 29-SEP-2022 20:13, Vent. rate has increased BY 81 BPM Non-specific change in ST segment in Inferior leads ST now depressed in Lateral leads Confirmed by Paris Pardo MD () on 08/22/2023 10:44:35 PM Electronically Signed By: PARIS PARDO MD 08/22/23 2244 PATIENT NAME: JESÚS FELIX Electrocardiogram DATE OF : 41 PHYSICIAN: PARIS PARDO MD REPORT #: [id number] REPORT IS CONFIDENTIAL AND NOT TO BE RELEASED WITHOUT AUTHORIZATION
[2023-08-23] VITALS (12 sets, daily range): BP systolic 104–129; BP diastolic 46–73
--- NOTE | 2023-08-23 00:10 | NUR ---
REPOSITIONED, ONROOM AIR, OPEN EYS, NO VERBAL COMMUNICATION AT THIS TIME. IVF INFSING, F/C PATENT, RECTAL TUBE IN PLACE, SCDS, LE ELEVATED
--- NOTE | 2023-08-23 04:09 | NUR ---
Repositioned, awakens easily. on room air. IVF infusing. moving arms patricia nad reached over covers grabbed and brought to [facility]. clear speech, inappropriate responses to questions. whats your name?, "Oh thank you is ok"-answers. Whats your name? "oh thats real nice" answers, when asked again stated, "Oh Arturo not sure, is nice though". tracking better when asked on Left side. cooperative with assessments. SCDS in place
[2023-08-23 05:37] LABS: HEMOGLOBIN 11.5 g/dL (12.0-18.0); LYMPHOCYTES 10.5 % (24-44); MCH 31.2 (27-36); MCHC 33.9 g/dl (30-36); MONOCYTES 3.6 % (0-12); NEUTROPHILS 85.9 % (39-80); PLATELET COUNT 86 K/uL (140-440); RDW 13.7 (10.5-15.0)
[2023-08-23 05:53] LABS: ALBUMIN 2.8 g/dL (3.4-5.0); ALBUMIN/GLOBULIN RATIO 1.04 (1.1-2.4); BILIRUBIN, TOTAL 0.8 ng/dL (0.2-1.0); BUN/CREATININE RATIO 30.95 (6.0-28.6); CALCIUM 6.8 mg/dL (8.5-10.1); CREATININE, SERUM 0.84 mg/dL (0.55-1.02); MAGNESIUM 1.6 mg/dL (1.8-2.4); PHOSPHORUS, INORGANIC 2.4 mg/dL (2.5-4.9); PROTEIN, TOTAL 5.5 g/dL (6.4-8.2)
--- NOTE | 2023-08-23 06:26 | NUR ---
AWAKE, DYSPHAGIA STILL PRESENT, MORE ALERT AND CLEAR SPEECH, STILL r SIDED WEAKNESS. IMPROVED STRONGER HAND TOASTER OPERATOR EVEN ON R SIDED. WEAKNESS, NO RESPONSE LEGS EXCEPT MOANING WHEN ELEVATED TO REPOSITIONING. NEURO CHECKS EVERY FOUR HOURS, IMPROVED. F/C QS DARK URINE. RECTAL TUBE PATENT. SCDS IN PLACE. EDEMA TO ANKLE/FEET NO CHANGES
--- NOTE | 2023-08-23 07:08 | NUR ---
REPORT RECEIVED FROM ANTISQUEAK CHALKER RN DWIGHT. PATIENT LYING IN BED AWAKE AND RESPIRATIONS ARE EVEN AND UNLABORED. PATIENT WITH DAUGHTER AT THE MEDSIDE. PATIENT STATED NO NEEDS AT THIS TIME. CALL LIGHT AND PERSONAL BELONGINGS ARE WITHIN REACH.
[2023-08-23] MEDS ORDERED: MAGNESIUM SULFATE 2 GM/50 ML BAG IV ONE (08:00)
--- NOTE | 2023-08-23 08:06 | NUR ---
Patient appears to be in a good mood, and has been responsive. The daughters of the patient are in the room. No request from patient or daughter. Call light has been placed within reach and board has been updated
[2023-08-23] MEDS ORDERED: POTASSIUM PHOSPHATE 30 MMOL in DEXTROSE 5% 500 ML IV ONE (08:15)
[2023-08-23 08:51] LABS: LYMPHOCYTES, MANUAL DIFF 55
[2023-08-23] MEDS ORDERED: CEFTRIAXONE/SODIUM CHLORIDE 2 GM/100 ML PIGGYBACK IV SCH (09:00)
[2023-08-23] MEDS ORDERED: TYLENOL EXTRA500 MG PO ×2 (09:21→09:22)
[2023-08-23] MEDS ORDERED: TRAMADOL HCL50 MG PO (09:23)
[2023-08-23] MEDS ORDERED: TURMERIC500 M2 PO (09:24)
--- NOTE | 2023-08-23 09:34 | NUR ---
MED REC COMPLETE
--- NOTE | 2023-08-23 10:01 | NUR ---
ASSISTED KARINA WALKER WITH REPLACING RECTAL TUBE. PT TOLERATED WELL.
--- NOTE | 2023-08-23 10:14 | NUR ---
CONNECTED WITH FAMILY DURING SPIRITUAL CARE ROUNDS. FAMILY EXPRESSED AWARENESS OF PT CONDITION, STRONG RELATIONAL AND NIMA RESOURCES, EXPRESSED HOPE. I PROVIDED SUPPORTIVE PRESENCE, LISTENED EMPATHETICALLY, PROVIDED ANTICIPATORY GUIDANCE, PROVIDED PRAYER. FAMILY EXPRESSED GRATITUDE.
[2023-08-23] MEDS ORDERED: ACETAMINOPHEN 325 MG TAB PO PRN (10:15)
--- NOTE | 2023-08-23 10:20 | NUR ---
0800 AND 0900 MEDICATIONS ADMINISTERED PER THE EMAR. RECTAL TUBE RE-INSERTED AND THE BALLOON INFLATED WITH 35 ML. CEE CARE AND JL CARE COMPLETE AT THIS TIME. REDNESS NOTED NEAR THE RECTUM AND JL AREA. DESENEX POWDER AND BARRIER CREAM IN PLACE. NEW CHUX AND DRAW SHEET PLACED UNDERNEATH THE PATIENT. PATIENT IS ON ROOM AIR AND LUNG SOUNDS ARE CLEAR BILATERALLY. NORMAL S1 AND S2 HEARD ON CARDIAC AUSCULTATION. BOWEL TONES ARE ACTIVE IN ALL FOUR QUADRANTS. RADIAL PULSES ARE STRONG BILATERALLY AND THE SCDS ARE IN PLACE. SENSATION INTACT AND PATIENT WITH NO COMPLAINTS OF NUMBNESS AND TINGLING AT THIS TIME. PATIENT IS NO PAIN. IV SITE FLUSHED WITH 10 ML NORMAL SALINE. POTASSIUM AND MAGNESIUM IV INFUSIONS ARE INFUSING AT THIS TIME. PATIENT WITH 3 VISITORS AT THE BEDSIDE. PATIENT STATED NO FURTHER NEEDS AT THIS TIME. CALL LIGHT AND PERSONAL BELONGINGS ARE WITHIN REACH.
--- NOTE | 2023-08-23 11:30 | NUR ---
PRN TYLENOL ADMINSITERED PER THE EMAR. PATIENT AND FAMILY SPOKE WITH AT THIS TIME. PATIENT ABLE TO TAKE THE MEDICATION CRUSHED IN PUDDING. PATIENT STATED NO FURTHER NEEDS AT THIS TIME. CALL LIGHT AND PERSONAL BELONGINGS ARE WITHIN REACH.
--- NOTE | 2023-08-23 13:17 | NUR ---
UR CLINICAL REVIEW: [facility] OBS 08/22/23 @ 1114 ORDER MATCHES NO PA NEEDED PATIENT IS OBS RETURN TO [facility] WHEN MEDICALLY STABLE 08/24/23
--- NOTE | 2023-08-23 13:44 | NUR ---
SPOKE TO PATIENT ABOUT THE DISCHARGE PLAN. PATIENT'S FAMILY WOULD WOOD LIKE THE PATIENT TO GO BACK TO [facility]. THE FAMILY UNDERSTANDS THAT MANY NOT BE AN OPTION. THE PATIENT IS IMPROVING SLOWLY AND MAY NEED SNF. THE FAMILY REQUESTED A LIST OF SNFS IN THE AREA AND LET CANDY CATCHER KNOW THEIR CHOICE.
[2023-08-23] MEDS ORDERED: VANCOMYCIN HCL 125 MG CAP PO SCH (13:45)
[2023-08-23] MEDS ORDERED: KETOROLAC TROMETHAMINE 15 MG/ML VIAL IV PRN (13:45)
--- NOTE | 2023-08-23 14:21 | NUR ---
PATIENT WITH NO COMPLAINTS OF PAIN AT THIS TIME. IV SITE IN THE LAC IS CLEAN, DRY, AND INTACT. PATIENT ABLE TO TAKE VANCOMYCIN DOSE WITH PUDDING AND ENSURE. CEE CATHETER AND RECTAL TUBE IS INTACT. PATIENT IS ALERT AND ORIENTED TO SELF AND PLACE. PATIENT WITH VISITORS IN THE ROOM. PATIENT STATED NO FURTHER NEEDS AT THIS TIME. CALL LIGHT AND PERSONAL BELONGINGS ARE WITHIN REACH.
--- NOTE | 2023-08-23 14:38 | NUR ---
VISITED DURING SPIRITUAL CARE ROUNDS. FAMILY AT BEDSIDE INDICATED PT ATTEMPTING TO GET OUT OF BED. INFORMED NURSING STAFF WHO RESPONDED TO ADDRESS PT NEEDS. CONNECTED MORE WITH FAMILY IN HALLWAY THEY WAITED FOR NURSING STAFF TO FINISH WITH PT. PROVIDED NIPPLE MACHINE OPERATOR EDUCATION, HOSPITALITY, SUPPORTIVE PRESENCE. FAMILY EXPRESSED GRATITUDE, HOPE.
--- NOTE | 2023-08-23 14:55 | NUR ---
PATIENT MOVED TO THE CHAIR PER PATIENT REQUEST. BED LINENS CHANGED AND PATIENT CLEAN UP. RECTAL TUBE AND CEE CATHETER ARE IN PLACE. IV SITE IS CLEAN, DRY, AND INTACT. IV POTASSIUM PHOSPHORUS CONINUES TO INFUSE. PATIENT WITH NEW BRIEF IN PLACEE. PATIENT STATED NO FURTHER NEEDS AT THIS TIME. CALL LIGHT AND PERSONAL BELONGINGS ARE IN PLACE.
--- NOTE | 2023-08-23 15:35 | NUR ---
PATIENT IS SITTING UP IN THE CHAIR AT THIS TIME. PATIENT WITH 3 VISITORS AT THIS TIME. PATIENT IV REMAINS INFUSING AT THIS TIME. CALL LIGHT AND PERSONAL BELONGINGS ARE WITHIN REACH.
--- NOTE | 2023-08-23 16:38 | NUR ---
PATIENT SHOWER CAP AND BATH WIPE DOWN COMPLETE. PATIENT IV SITE FLUSHED WITH 10 ML NORMAL SALINE AND IV MAINTENANCE FLUIDS OF NS AT 125 ML/HR ARE INFUSING AT THIS TIME. PATIENT MOVED BACK TO THE BED PER PATIENT REQUEST. UPON DOING BED BATH, HIVES NOTED IN BILATERAL ARM PITS. PATIENT WITH NO COMPLAINTS OF ICHING OR SOB. NOTIFIED. NO NEW VERBAL ORDERS AT THIS TIME. CALL ENDED. CALL LIGHT AND PERSONAL BELONGINGS ARE WITHIN REACH.
[2023-08-23] MEDS ORDERED: diphenhydrAMINE 2% CREAM TUBE TOP SCH (17:45)
[2023-08-23] MEDS ORDERED: LORazepam 0.5 MG TAB PO ONE (17:45)
--- NOTE | 2023-08-23 18:29 | NUR ---
ATIVAN, VANCOMYCIN, AND CREAM ADMINSITERED PER THE EMAR. PATIENT IV SITE FLUSHED WITH 10 ML NORMAL SALINE AND IS INFUSING WITH NS AT 125 ML/HR. PATIENT WITH TWO VISITORS AT THE BEDSIDE. PATIENT STATED NO FURTHER NEEDS AT THIS TIME. CALL LIGHT AND PERSONAL BELONGINGS ARE WITHIN REACH.
--- NOTE | 2023-08-23 20:40 | NUR ---
pt more awake, alert to self. "I want to go home to my apartment". not very cooperative with turning or repositioning. speech clear, IVF infusing RA. covered with binta wrap as she was trying to pull it out. redness around axillary area extending to upper inner arm and chest on the left, R same as L but not extending. cleansed, dried and benadryl powder applied, Desenex applied to under arms, pannus and armando area. much improved redness periare and gluteal folds. continues to have cottage cheese like vaginal discharged but not as much as yesterday. pericare, f/c care done. f/c patent draining light yellow colored urine. rectal tube in place, draining dark colored liquid bm. scds in place, edema to both ankles, much improved than yesterday. HOB elevated, took meds w/o problems, took sips of fluids well. oral care done, cooperative, all procedures explained prior to. not very receptive. family in room. cont to reinforce teachaing and explain all cares prior to. Bed alarm on
[2023-08-23] MEDS ORDERED: ESCITALOPRAM OXALATE 10 MG TAB PO SCH (21:00)
--- NOTE | 2023-08-23 22:02 | NUR ---
Pt awake, IVF infusing, pulling at binta wrap, reinstructed , procedure explained, semireceptive. moving arms better, unable to do neuro checks as pt declined "I do not want to touch you", will notify MD. Has been calling using call light every 3-5 minutes "I want to go home, I already told you I want to go home, bring someone else not you". Pt instructed on reasoning why she is here, not receptive, "Arturo not sick, I want to go home". several other nursing HAND PLATE STACKER and charge nurse have been answering and instructing pt why she is here and cannot go home today mayve in several days when she is patricia, irritable, angry mood, not receptive to instructions. hob elevated. Continues to reorient
--- NOTE | 2023-08-23 23:57 | NUR ---
MORE QUIET, EYES CLOSED, HOB ELEVATED, IVF INFUSING. F/C AND RECTAL TUBE INTACT. SCDS IN PLACE, PT TOOK ALL 4 PILLOWS AND COVERS OFF AND THREW THEM OFF TO THE FLOOR, REDIRECTED, 'I DONT WANT THEM, I WOULD IF I WERE SICK, BUT [place] E NOT SICK". REDIRECTED, WILL KEEP PILLOWS OFF AND JUST REPOSITION IF PT ALLOWS. WARM BLANKET GIVEN. REORIENT, CALMED DOWN.
[2023-08-24] VITALS (7 sets, daily range): BP systolic 104–147; BP diastolic 59–76
--- NOTE | 2023-08-24 00:22 | NUR ---
PT ON ROOM AIT, IVF INFUSING, NO FURTHER PULLING AT TUBES, F/C AND RECTAL TUBE PATENT. DRAINING LIQUID DARK COLORED BM. REPOSITIONED IN BED, NOT VERY COOPERATIVE EVEN AFTER ALL CARES EXPLAINED, CONTINUES TO BE FIXATED ON "LUIS E NOT SICK, I WANT TO GO HOME.' WILL CALL FAMILY IF SHE REQUESTS. REORIENTED AND CALMED DOWN AFTER SEVERAL CUES, SCDS IN PLACE. ELEVATED.
--- NOTE | 2023-08-24 04:45 | NUR ---
PRODUCTION SUPPORT ENGINEER MAHIN CALLED AND ASKING FOR pt UPDATE. UPDATE PROVIDED. PRIMARY RN MADE AWARE.
[2023-08-24 05:43] LABS: BASOPHILS 0.2 % (0-2); EOSINOPHILS 0.2 % (0-6); HEMATOCRIT 31.2 % (35.0-50.0); HEMOGLOBIN 10.9 g/dL (12.0-18.0); LYMPHOCYTES 15.7 % (24-44); MCH 31.8 (27-36); MCHC 35.1 g/dl (30-36); MCV 90.6 fl (81-99); MONOCYTES 3.9 % (0-12); PLATELET COUNT 88 K/uL (140-440); RBC 3.44 M/ul (4.3-5.7); RDW 13.9 (10.5-15.0)
[2023-08-24 06:02] LABS: ALBUMIN 2.7 g/dL (3.4-5.0); ANION GAP 14.4 (7-21); BILIRUBIN, TOTAL 0.9 ng/dL (0.2-1.0); BUN/CREATININE RATIO 18.42 (6.0-28.6); CALCIUM 6.5 mg/dL (8.5-10.1); CREATININE, SERUM 0.76 mg/dL (0.55-1.02); PHOSPHORUS, INORGANIC 1.6 mg/dL (2.5-4.9); POTASSIUM 3.4 mmol/L (3.5-5.1); PROTEIN, TOTAL 5.4 g/dL (6.4-8.2)
--- NOTE | 2023-08-24 06:47 | NUR ---
DR GRIMALDO NOTIFIED OF HIGH MEWS SCORE WHEN PT WAS AGITATED AND NOT FOLLOWED THE SCORES COME DOWN TO NORMAL WHEN CALMER. PT MORE ALERT AND ORIENTED, CLEAR SPEECH AND MAKING NEEDS KNOWN. DR PARDO STATED" OK". - MD ALSO NOTIFIED OF PT DECLINING NEURO CHECKS ALL SHIFT. STATED "OK TO DC NEURO CHECKS". - NOTIFIED OF PT PULLING AT IV, F/C AND RECTAL TUBES LINE EARLIER ON SHIFT. REDIRECTABLE, LINES PATENT AT THIS TIME. AND PT CONTINUES TO HAVE LIQUID BM. AND MUCH IMPROVED AXILLARY RASH. DR PARDO STATED "WILL COME IN LATER AND ASSESS NEED FOR CONTINUATION OF IVF".
[2023-08-24] MEDS ORDERED: LEVOTHYROXINE SODIUM 88 MCG TAB PO SCH (07:00)
--- NOTE | 2023-08-24 07:03 | NUR ---
REPORT RECEIVED FROM SUPPLIER MANAGER RN DWIGHT. PATIENT IS LYING IN BED WITH EYES OPEN AND RESPIRATIONS ARE EVEN AND UNLABORED. PATIENT CALL LIGHT AND PERSONAL BELONGINGS ARE WITHIN REACH.
[2023-08-24] MEDS ORDERED: POTASSIUM PHOSPHATE 30 MMOL in DEXTROSE 5% 500 ML IV ONE (08:30)
--- NOTE | 2023-08-24 08:33 | NUR ---
IV SITE IN THE RIGHT FOREARM FLUSHED WITH 10 ML NORMAL SALINE. IV ROCEPHIN IS INFUSING AT THIS TIME. PATIENT IS ALERT AND ORIENTED TO SELF AND PLACE. PATIENT STATED NO FURTHER NEEDS AT THIS TIME. CALL LIGHT AND PERSONAL BELONGINGS ARE WITHIN REACH.
--- NOTE | 2023-08-24 08:52 | NUR ---
MACHINE LEAD BURNER ASSISTED PT WITH EATING. PT IS RESPONDING WELL BUT STILL SHOWING SOME SIGNS OF CONFUSION. PT KEPT ASKING MACHINE LEAD BURNER IF HER SON WAS HERE. PT WAS ABLE TO DRINK ABOUT 50ML OF FLUID BETWEEN TAKING DRINKS OF MILK AND WATER. PT ATE TWO BITES OF APPLE SAUCE BEFORE TELIING MACHINE LEAD BURNER THAT SHE WAS DONE. MACHINE LEAD BURNER PUT THIS ON THE PT WALL AND REMOVED THE BREAKFAST TRAY. PT STATES NO SIGNS OF DISCOMFORT AND CALL LIGHT IS WITHIN REACH
[2023-08-24] MEDS ORDERED: Trospium Chloride 20 MG TABLET PO SCH (09:00)
[2023-08-24] MEDS ORDERED: PANTOPRAZOLE SODIUM 40 MG TABEC PO SCH (09:00)
--- NOTE | 2023-08-24 09:00 | NUR ---
Spoke with son and granddaughter. They state family on their way to [facility] to [facility]. They are wanting a memory care. Let them know [facility] is a Shelter Facility. I gave them a list with the Memory Cares in [place]. Family are also considering a Memory Care in [place] near pts daughters home. Pt was discussed in 829 meeting and no plan for dc at this time. Waiting for labs. Family would prefer pt not return to [facility]. Rn from [facility] will visit pt tomorrow to [facility]. I did update her family prefer placement to a Memory Care. It is best Rn evaluate her in case there are no placement options available.
[2023-08-24] MEDS ORDERED: IBUPROFEN 400 MG TAB PO PRN (09:30)
--- NOTE | 2023-08-24 09:30 | NUR ---
0900 MEDICATIONS ADMINISTERED PER THE EMAR. FULL ASSESSMENT COMPLETE AND DOCUMENTED IN THE CHART. PATIENT IS ORIENTED TO SELF AT THIS TIME. PATIENT ABLE TO VERBALIZE FULL NAME AND DATE OF . RN EXPLAINED TO PATIENT WHERE SHE IS, WHY SHE IS IN THE HOSPITAL, AND WHAT MONTH IT IS. PATIENT IS ON ROOM AIR AND LUNG SOUNDS ARE CLEAR IN ALL LUNG PEARCE BILATERALLY. RADIAL PULSES ARE STRONG. CARDIAC WITH NORMAL S1 AND S2 ON AUSCULTATION. SENSATION INTACT, NO COMPLAINTS OF NUMBNESS AND TINGLING AT THIS TIME. PATIENT WITH NO PAIN. BOWEL TONES ARE ACTIVE IN ALL FOUR QUADRANTS. IV SITE ON THE RIGHT FOREARM IS CLEAN, DRY, AND INTACT. IV FLUSHED WITH 10 ML NORMAL SALINE. IV WRAPPED WITH COBAN. PATIENT WITH CEE AND JL CARE COMPLETE. PATIENT RECTAL TUBE IN PLACE. NEW BRIEF AND CHUX IN PLACE. SKIN WITH REDNESS IN THE ARM PITS THAT HAS IMPROVED SINCE YESTERDAY. REDNESS IN THE JL AREA AND RECTUM IMPROVED. PATIENT STATED NO FURTHER NEEDS AT THIS TIME. CALL LIGHT AND PERSONAL BELONGINGS ARE WITHIN REACH. PATIENT WITH COMPLAINTS OF CHEST PAIN. MD NOTIFIED OF CHEST PAIN AND THE CALCIUM LEVEL OF 6.5. NO NEW ORDERS AT THIS TIME.
--- NOTE | 2023-08-24 10:12 | NUR ---
ATTEMPTED TO VISIT DURING SPIRITUAL CARE ROUNDS. PT ON PHONE WITH FAMILY. DID NOT INTERRUPT. PROVIDED PRAYER.
--- NOTE | 2023-08-24 10:33 | NUR ---
PATIENT PRN IBUPROFEN ADMINISTERED PER THE EMAR. PATIENT WITH SPEECH THERAPHY AND TWO FAMILY MEMBERS IN THE ROOM AT THIS TIME. PATIENT STATED NO FURTHER NEEDS AT THIS TIME. CALL LIGHT AND PERSONAL BELONGINGS ARE WITHIN REACH.
--- NOTE | 2023-08-24 13:10 | NUR ---
NEW BAG OF NS IS INFUSING AT THIS TIME. 1300 MEDICATIONS ADMINISTERED PER THE EMAR. PATIENT REPOSITIONED IN BED. PATIENT ABLE TO EAT SOME FOOD AND TOLERATED WELL. PATIENT SON IS AT THE BEDSIDE. PATIENT STATED NO FURTHER NEEDS AT THIS TIME. CALL LIGHT AND PERSONAL BELONGINGS ARE WITHIN REACH.
[2023-08-24 13:20] LABS: HEPATITIS A ANTIBODY, IGM Negative (Negative); HEPATITIS B CORE ANTIBODY, IGM Negative (Negative); HEPATITIS B SURFACE ANTIGEN Negative (Negative); HEPATITIS C AB CIA INTERP Negative (Negative); HEPATITIS C ANTIBODY CIA INDEX 0.08 IV (())
--- NOTE | 2023-08-24 15:34 | NUR ---
PATIENT IS LYING IN BED AND RESPIRATIONS ARE EVEN AND UNLABORED. PATIENT WITH SON AND TWO VISITORS AT THE BEDSIDE. PATIENT WITH NO COMPLAINTS OF PAIN OR NUMBNESS AND TINGLING AT THIS TIME. IV SITE FLUSHED WITH 10 ML NORMAL SALINE. POTASSIUM PHOSPHOROUS INFUSION COMPLETE. NS IS INFUSING AT 125 ML/HR. IV WRAPPED WITH KOBAN. PATIENT IS ALERT AND ORIENTED TO SELF AND DAY OF THE WEEK. PATIENT CEE IS INTACT WITH STAT LOCK IN PLACE. RECTAL TUBE IN PLACE AND THE DRAINAGE BAG REPLACED. 350 ML OF STOOL RECORDED. PATIENT AND FAMILY STATED NO FURTHER NEEDS AT THIS TIME. CALL LIGHT AND PERSONAL BELONGINGS ARE WITHIN REACH.
--- NOTE | 2023-08-24 15:43 | NUR ---
PT PRESENTED TO RT DEPARTMENT FOR TREADMILL STRESS TEST. PT DENIED CHEST PAIN OR SOB PRIOR TO, DURING, OR AFTER TEST. PT COMPLETED TEST WITHOUT COMPLICATIONS, WITH ENDING IN STAGE 2 DUE TO FATIGUE. PT BP ELEVATED, PT ADVISED TO TAKE BP MEDICATION WHEN HOME. PT INFORMED THAT [facility] WILL BE READING RESULT AND SEND TO PCP.
--- NOTE | 2023-08-24 16:30 | NUR ---
Spoke with pts daughter and they did visit [facility] today. They would like pt to go there. I discussed with her pt would need to go as a therapy pt and she could work with PT or OT today. Pt must be able to work with therapy to meet criteria. There is also concern as pt has [facility] and pt would need to be reasessed q 5 days. Per SNF, they routinely do not auth many days. I asked if they considered memory care as requested this am. Daughter states she was told she must go to rehab by the . Let her know I will discuss with PT/OT and Dr. Ortiz. At this time pt would not meet criteria as a therapy pt. Pt also has C Diff pending and other labs. I will call [facility] and discuss with
[2023-08-24] MEDS ORDERED: QUETIAPINE FUMARATE 25 MG TAB PO SCH (19:00)
--- NOTE | 2023-08-24 19:51 | NUR ---
REPORT RECIEVED FROM DAY SHIFT RN. PATIENT REPOSITIONED IN BED WITH NEW NASRIN AND SLIDE SHEET IN PLACE. NO FURTHER NEEDS. CALL LIGHT IN REACH.
--- NOTE | 2023-08-24 20:46 | NUR ---
PATIENT RESTING IN BED. VS AND I&Os OBTAINED AND RECORDED. PATIENT REPOSITIONED IN BED. SCHEDULED MEDICATIONS ADMINSITERED. A&O TO NAME AND DATE. PATIENT KEEPS STATING "I NEED TO GET A HOTEL TO SLEEP AT TONIGHT, WHAT AM I GONNA DO?" THIS RN EXPLAINED THAT SHE IS IN THE HOSPITAL AND SHE WILL BE STAYING HERE TONIGHT. PATIENT TEARFUL AND THANKFUL FOR BEING ABLE TO STAY. ASSESSMENT COMPLETE. IV FLUSHES WNL. FRESH WATER PROVIDED. WARM BLANKET PROVIDED. NO FURTHER NEEDS. CALL LIGHT IN REACH.
--- NOTE | 2023-08-24 21:15 | NUR ---
pt BOOSTED IN BED, BED ALARM RESUMED. pt REMAINS CONFUSED, BUT APPRECIATIVE OF CARES AND PLEASANT AT THIS TIME. CALL LIGHT IN REACH.
--- NOTE | 2023-08-24 22:05 | NUR ---
PATIENT RESTING IN BED. SCHEDULED MEDICATION ADMINSITERED. WARM BLANKET PROVIDED. PATIENT STATES "I FEEL COMFORTABLE AND SETTLED IN NOW". NO FURTHER NEEDS. CALL LIGHT IN REACH.
[2023-08-24 23:45] LABS: C. DIFF TOXIN B GENE TCDB,PCR Not Detected (())
--- NOTE | 2023-08-25 00:15 | NUR ---
PATIENT RESTING IN BED ON BACK WITH EYES CLOSED. RESPIRATIONS EVEN AND UNLABORED. CALL LIGHT IN REACH.
--- NOTE | 2023-08-25 01:52 | NUR ---
PATIENT RESTING IN BED WITH EYES CLOSED. RESPIRATIONS EVEN AND UNLABORED. CALL LIGHT IN REACH.
--- NOTE | 2023-08-25 03:35 | NUR ---
PATIENT RESTING IN BED WITH EYES CLOSED ON BACK. RESPIRATIONS EVEN AND UNLABORED. CALL LIGHT IN REACH.
[2023-08-25 05:39] LABS: BASOPHILS 0.2 % (0-2); EOSINOPHILS 1.3 % (0-6); HEMATOCRIT 33.4 % (35.0-50.0); HEMOGLOBIN 11.7 g/dL (12.0-18.0); LYMPHOCYTES 17.6 % (24-44); MCH 31.7 (27-36); MCHC 35.2 g/dl (30-36); MCV 90.2 fl (81-99); MONOCYTES 5.2 % (0-12); NEUTROPHILS 75.7 % (39-80); PLATELET COUNT 115 K/uL (140-440); RDW 13.6 (10.5-15.0)
[2023-08-25 06:00] LABS: ALBUMIN 2.7 g/dL (3.4-5.0); ALBUMIN/GLOBULIN RATIO 0.9 (1.1-2.4); ANION GAP 13.6 (7-21); BUN/CREATININE RATIO 12.69 (6.0-28.6); CALCIUM 7.3 mg/dL (8.5-10.1); CREATININE, SERUM 0.63 mg/dL (0.55-1.02); MAGNESIUM 1.6 mg/dL (1.8-2.4); PHOSPHORUS, INORGANIC 1.8 mg/dL (2.5-4.9); POTASSIUM 3.6 mmol/L (3.5-5.1); PROTEIN, TOTAL 5.7 g/dL (6.4-8.2)
[2023-08-25 06:52] VITALS: BP 150/69
--- NOTE | 2023-08-25 06:52 | NUR ---
PATIENT RESTING IN BED. VS AND I&Os OBTAINED AND RECORDED. SCHEDULED MEDICATION ADMINSITERED. FRESH LINENS, BREIF, AND CHUCKS PROVIDED. CATH CARE PROVIDED PER PROTOCOL. BED ALARM ON FOR SAFETY. PATIENT PLEASANT AND COOPERATIVE THIS AM. NO FURTHER NEEDS. CALL LIGHT IN REACH.
--- NOTE | 2023-08-25 07:00 | NUR ---
REPORT RECEIVED FROM KARINA CAO. PT LAYING IN BED AND RESPONDS WHEN ADDRESSED. IV INFUSING WNL. BED ALARM ON. NO OTHER NEEDS IDENTIFIED AT THIS TIME. CALL LIGHT IN REACH.
[2023-08-25] MEDS ORDERED: POTASSIUM PHOSPHATE 30 MMOL in DEXTROSE 5% 500 ML IV ONE (07:45)
[2023-08-25] MEDS ORDERED: MAGNESIUM SULFATE 4 GM/100 ML BAG IV ONE (08:00)
--- NOTE | 2023-08-25 08:06 | NUR ---
ELECTRONICS INSPECTOR ENTERED ROOM AND PT WAS PULLING ON HER CEE CATHETER. ELECTRONICS INSPECTOR TOLD PT THAT SHE COULDN'T PULL HER CATHETER OUT BECAUSE IT IS DRAINING HER URINE FROM HER BLADDER. ELECTRONICS INSPECTOR PLACED A NEW BLANKET ON THE PATIENT AND HELPED REPOSITION HER. ELECTRONICS INSPECTOR GAVE PT A DRINK OF WATER. ABOUT 30 MINUTES LATER PT CALLED SO ELECTRONICS INSPECTOR CHECKED ON HER. PT HAD PULLED OUT HER IV. RN WAS NOTFIED. ELECTRONICS INSPECTOR CHANGED PT CHUCKS AND DIRTY PULL SHEET THAT PT HAS SOILED. PT KEPT SAYING SHE "HAD TO GO TO THE BATHROOM" ELECTRONICS INSPECTOR TOLD PT THAT SHE HAS A CATHETER AND A RECTAL TUBE SO SHE COULD NOT GET UP AND GO TO THE BATHROOM. ELECTRONICS INSPECTOR TURNED TV ON SO THAT PT COULD WATCH IT. CALL LIGHT IS WIHTIN REACH
--- NOTE | 2023-08-25 09:08 | NUR ---
FAMILY IN ROOM. FAMILY UPDATED ON POC. NO OTHER NEEDS REPORTED OR IDENTIFIED AT THIS TIME. BED ALARM ON. CALL LIGHT IN REACH.
--- NOTE | 2023-08-25 09:30 | NUR ---
THIS RN TALKED TO DR. PARDO REGARDING PTs URINE OUTPUT AND RECTAL TUBE. DR. PARDO TO PLACE ORDERS.
--- NOTE | 2023-08-25 10:34 | NUR ---
ENCOUNTERED FAMILY IN HALLWAY. FAMILY EXPRESSED FRUSTRATION WITH DISCHARGE PLAN PROCESS. I LISTENED EMPATHETICALLY AND PROVIDED ANTICIPATORY GUIDANCE; INTERFACED WITH COOK SAUCE NICK AND ROBBIE TO COMMUNICATE FAMILY FRUSTRATIONS. COOK SAUCE NICK AND ROBBIE LISTENED ATTENTIVELY AND PROVIDED ADDITIONAL INFORMATION; DEVELOPED COMMUNICATION PLAN. I RELAYED TO FAMILY THAT ROBBIE WOULD BE THEIR MECHANICAL SHOP LABORER AND PROVIDED INFORMATION FROM CASE MANAGEMENT. FAMILY INDICATED THEY FLET HEARD AND SUPPORTTED, EXPRESSED INTENTION TO WORK WITH ROBBIE TO IMPROVE COMMUNICATION AND FIND BEST OPTION FOR PT.
--- NOTE | 2023-08-25 10:34 | NUR ---
IN WITH SN CYRIL AND SN MARÍA ELENA. RECTAL TUBE DC'd PER DR. PARDO. JL-CARE PROVIDED. REDNESS NOTED TO BUTTOCKS, BARRIER CREAM APPLIED. NEW ATTENDS PLACED. ASSESSMENT COMPLETE. CEE CARE COMPLETE. SLIGHT REDNESS NOTED TO GROIN, DESENEX POWDER APPLIED. REDNESS NOTED TO UNDER BILATERAL BREASTS, DESENEX APPLIED. REDNESS NOTED TO BILATERAL AXILLARY, BENADRYL CREAM APPLIED. REDNESS DOES NOT EXCEED OUTLINED AREA. BRUISE TO LEFT HAND. RIGHT GREAT TOE AND SECOND TOE NOTED TO HAVE NO NAIL. REDNESS NOTED TO LEFT FOOT BRUISE NOTED TO RIGHT HAND. REDNESS NOTED TO BACK. PT/OT IN TO ASSIST WITH MOVING PT TO CLOSER ROOM. PT HOYERED FROM BED TO RECLINER AND PT WHEELED TO NEW ROOM IN RECLINER. BELONGINGS TRANSFERRED TO NEW ROOM. LUNG SOUNDS CLEAR IN RUL, CELY AND RLL. CRACKLES IN LLL. BOWEL TONES ACTIVE. ABD SOFT AND NON-TENDER.
[2023-08-25 11:53] VITALS: BP 150/69
--- NOTE | 2023-08-25 12:13 | NUR ---
IN IV PUMP ALARMING. IV MAGNESIUM COMPLETE. IV K PHOS REMAINS INFUSING WNL. WATER PROVIDED. PT SITTING UP IN RECLINER. FAMILY IN ROOM. CEE EMPTIED. PT AND FAMILY DENY ANY OTHER NEEDS AT THIS TIME. CALL LIGHT IN REACH. CHAIR ALARM ON.
--- NOTE | 2023-08-25 12:50 | NUR ---
IN IV PUMP ALARMING, RESOLVED. PT SITTING UP IN RECLINER. PT REPORTS BEING DONE WITH LUNCH TRAY. TRAY REMOVED. PT AND FAMILY DENY ANY NEEDS AT THIS TIME. CALL LIGHT IN REACH. CHAIR ALARM ON.
--- NOTE | 2023-08-25 13:22 | NUR ---
IV REMOVED FROM R AC PER PATIENT. NEW IV PLACED IN L AC. TOLERATED WELL. NOTICED CEE CATHETER BAG FILLING QUICKLY. PRIMARY RN NOTIFIED. PT REPORTED NECK AND HEAD PAIN. IBUPROFIN ADMINISTERED. UPON REASSESSMENT, PT ASLEEP. RECTAL TUBE REMOVED WITH PRIMARY RN. CEE CARE PROVIDED. FAMILY AT BEDSIDE NOW AND PT IS RESTING COMFORTABLY IN CHAIR.
--- NOTE | 2023-08-25 13:45 | NUR ---
IN WITH FREDA BRIGHT. VITALS AND I&Os COMPLETE. BENADRYL CREAM APPLIED TO BILATERAL AXILLARY. NO REDNESS NOTED TO AXILLARY BILATERALLY. ASSESSMENT COMPLETE. LUNG SOUNDS CLEAR IN RUL, CELY AND RLL. LLL CRACKLES NOTED. BOWEL TONES ACTIVE. ABD SOFT AND NON-TENDER WITH PALPATION. ATTENDS CHECKED, NO STOOL NOTED. IV INFUSING WNL. WATER PROVIDED. PT DENIES ANY OTHER NEEDS AT THIS TIME. PT SITTING UP IN RECLINER. CHAIR ALARM ON. CALL LIGHT IN REACH. PTs FAMILY BACK IN ROOM ALONG WITH A VISITOR. NO NEEDS REPORTED FROM FAMILY.
[2023-08-25 13:50] VITALS: BP 141/74
--- NOTE | 2023-08-25 13:54 | NUR ---
SPOKE TO DAUGHTER ABOUT THE DISHARGE PLAN.FAMILY WOULD LIKE A REFERRAL TO [facility] FOR REHAB. DAUGHTER STATES IF MOTHER CONTINUES TO DO WELL MAYBE THE PATIENT WILL BE ABLE TO GO BACK TO [facility] IN THE FUTURE. DAUGHTER TOLD THE DC HOT WOUND SPRING PRODUCTION SUPERVISOR THAT THE PATIENT HAS LOTS OF MONEY SO THE PATIENT CAN GO ANYWHERE THERE IS AN OPEN BED FOR PLACEMENT. REFFERAL SENT [facility] PER FAMILYS REQUEST.
[2023-08-25] MEDS ORDERED: ACETAMINOPHEN 325 MG TAB PO PRN (14:15)
--- NOTE | 2023-08-25 14:53 | NUR ---
DAUGHTER WANTED TO TALK TO THE DISTRICT RANGER. DAUGHTER STATED THAT THEY WILL PAY OUT OF POCKET IF NEEDED FOR PLACEMENT AT [facility].
--- NOTE | 2023-08-25 15:01 | NUR ---
IN TO ANSWER CALL LIGHT. PTs SON AND DIL IN ROOM. DIL REPORTING PT WAS "PULLING AT CEE." DIL ASKING THIS RN TO CHECK TO MAKE SURE PT DID NOT "PULL IT OUT." THIS RN IN ROOM. CEE NOTED TO BE IN PLACE. PT DENIES PAIN AT THIS TIME. PT SITTING UP IN RECLINER. PT STATES "I AM SORRY. I DID NOT KNOW." PT DENIES ANY OTHER NEEDS AT THIS TIME. CALL LIGHT IN REACH. CHAIR ALARM ON. FAMILY IN ROOM.
--- NOTE | 2023-08-25 15:52 | NUR ---
PT SITTING UP IN RECLINER VISITING WITH FAMILY. NO NEEDS IDENTIFIED OR REPORTED AT THIS TIME. CALL LIGHT IN REACH. CHAIR ALARM ON.
--- NOTE | 2023-08-25 16:09 | NUR ---
IN PTs FAMILY LEAVE ROOM. OFFERED TO ASSIST PT BACK TO BED. PT STATES "I AM FINE SITTING HERE FOR NOW." NEW BAG OF FLUIDS AND TUBING HUNG, SEE MAR. PT REQUESTING TO TALK TO DAUGHTER MELISSA. ASSISTED PT WITH CALLING DAUGHTER. PT SITTING UP IN RECLINER WITH CHAIR ALARM ON. CALL LIGHT IN REACH. PT ON PHONE WITH DAUGHTER.
--- NOTE | 2023-08-25 17:24 | NUR ---
THIS RN IN TO BRING PT DINNER TRAY. PT SITTING UP IN RECLINER. TRAY PLACED FOR PT. NO REDNESS/HIVES IDENTIFIED UNDER PTs AXILLARY BILATERALLY. WATER PROVIDED. PT DENIES ANY OTHER NEEDS AT THIS TIME. CALL LIGHT IN REACH. CHAIR ALARM ON.
[2023-08-25 18:44] VITALS: BP 145/77
--- NOTE | 2023-08-25 19:40 | NUR ---
REPORT RECIEVED FROM DAY SHIFT RN. PATIENT RESTING IN BED ON BACK WITH MUSIC PLAYING. PATIENT STATES "I AM REALLY ENJOYING MY MUSIC!". NO FURTHER NEEDS. CALL LIGHT IN REACH.
[2023-08-25 21:08] VITALS: BP 165/67
--- NOTE | 2023-08-25 21:30 | NUR ---
PATIENT RESTING IN BED. VS AND I&Os OBTAINED AND RECORDED. PATIENT REPOSITIONED IN BED WITH PILLOWS UNDER BILAT HIPS. SCDs IN PLACE. CATH CARE PROVIDED PER PROTOCOL. IV FLUSHES WNL. PATIENT PLEASANT AND COOPERATIVE. SCHEULED MEDICATION ADMINSITERED. PATIENT REPORTS LOWER BACK PAIN. PRN PAIN MEDICATION ADMINSITERED. FRESH WATER PROVIDED. NEW SOCKS PLACED. PATIENT LISTENING TO MUSIC AND TV READY FOR BED. CALL LIGHT IN REACH.
--- NOTE | 2023-08-25 23:32 | NUR ---
PATIENT RESTING IN BED ON BACK WITH EYES CLOSED. PILLOWS UNDER BILAT HIPS TO FLOAT PATIENT. SCDs IN PLACE. NO CURRENT NEEDS. CALL LIGHT IN REACH.
--- NOTE | 2023-08-26 00:54 | NUR ---
PATIENT RESTING IN BED ON BACK WITH EYES CLOSED. RESPIRATIONS EVEN AND UNLABORED. APPEARS COMFORTABLE. NO FURTHER NEEDS. CALL LIGHT IN REACH.
--- NOTE | 2023-08-26 02:32 | NUR ---
PATIENT RESTING IN BED WITH EYES CLOSED. RESPIRATIONS EVEN AND UNLABORED. CALL LIGHT IN REACH.
--- NOTE | 2023-08-26 04:24 | NUR ---
PATIENT RESTING IN BED WITH EYES CLOSED. RESPIRATIONS EVEN AND UNLABORED. CALL LIGHT IN REACH.
[2023-08-26 05:28] LABS: BASOPHILS 0.3 % (0-2); EOSINOPHILS 4.6 % (0-6); HEMATOCRIT 37.9 % (35.0-50.0); LYMPHOCYTES 17.5 % (24-44); MCH 31.1 (27-36); MCHC 34.3 g/dl (30-36); MCV 90.7 fl (81-99); MONOCYTES 6.5 % (0-12); NEUTROPHILS 71.1 % (39-80); PLATELET COUNT 137 K/uL (140-440); RBC 4.18 M/ul (4.3-5.7); RDW 13.6 (10.5-15.0)
[2023-08-26 05:30] VITALS: BP 150/68
--- NOTE | 2023-08-26 05:30 | NUR ---
DIGESTER CAPPER AND RN ENTERED ROOM. VITALS OBTAINED, I AND O DOCUMENTED, CEE BAG EMTPIED. PT STATES NO FURTHER NEEDS AT THIS TIME. CALL LIGHT PLACED WITHIN REACH.
--- NOTE | 2023-08-26 05:40 | NUR ---
SCHEDULED MEDICATION ADMINISTERED. FRESH WATER PROVIDED. PATIENT REPORTS FEELING COMFORTABLE. IV FLUID INFUSING WNL. PATIENT HAS NO FURTHER NEEDS. CALL LIGHT IN REACH.
[2023-08-26 05:47] LABS: ALBUMIN 2.8 g/dL (3.4-5.0); ALBUMIN/GLOBULIN RATIO 0.82 (1.1-2.4); ANION GAP 12.7 (7-21); BILIRUBIN, TOTAL 1.1 ng/dL (0.2-1.0); BUN/CREATININE RATIO 11.59 (6.0-28.6); CALCIUM 7.5 mg/dL (8.5-10.1); CREATININE, SERUM 0.69 mg/dL (0.55-1.02); MAGNESIUM 1.9 mg/dL (1.8-2.4); PHOSPHORUS, INORGANIC 2.8 mg/dL (2.5-4.9); POTASSIUM 3.7 mmol/L (3.5-5.1); PROTEIN, TOTAL 6.2 g/dL (6.4-8.2)
--- NOTE | 2023-08-26 06:46 | NUR ---
EARLIER IN SHIFT, RT MERVAT INFORMED THIS RN THAT COVID SWAB WAS ALREADY COLLECTED BY DAYSHIFT RT BLAYNE. SPOKE TO RT MERVAT AT THIS TIME REGARDING ORDERED COVID SWAB IT STATES NOT YET RECEIVED- CONFIRMED BY LAB. PER RT MERVAT, DAYSHIFT RT [facility]LAYNE TO COLLECT COVID SWAB AT START OF UPCOMING DAYSHIFT. PRIMARY RN AWARE. POSSIBLE DC TODAY TO FACILITY PER CHARGE REPORT.
--- NOTE | 2023-08-26 07:00 | NUR ---
REPORT RECIEVED FROM KARINA CAO. PT RESTING IN BED SEMI-FOWLERS, PILLOWS UNDER EACH SIDE OF PT. IV INGUSING WNL. PTs EYES CLOSED, RR EVEN AND UNLABORED. NO NEEDS IDENTIFIED AT THIS TIME. CALL LIGHT IN REACH. BED ALARM ON.
--- NOTE | 2023-08-26 08:24 | NUR ---
PATIENT TO BE TRANSFERED TO [facility] THE [facility].DAUGHTER WAS UPDATED ABOUT THE PLANS.PATIENT WILL GO BY AMBULANCE AT 10:3O. COVID TEST IS NEG.
--- NOTE | 2023-08-26 08:28 | NUR ---
IN TO ADMINISTER MEDICAITONS, SEE MAR. PT SITTING UP IN BED AND RESPONDS WHEN ADDRESSED. PT TAKES PO MEDICATIONS WITH NO ISSUES. PT A&O TO SELF AND PLACE. ASKED PT FOR PTs AND PT STATES "July." ASKED PT WHAT YEAR PT WAS BORN AND PT STATES "I CANNOT REMEMBER, 1951." ASKED PT IF PT WAS BORN IN [birth year] AND PT STATES "THAT IS IT!" ASKED PT WHAT MONTH IT IS CURRENTLY, PT STATES "IS IT JULY?" INFORMED PT IT IS AUGUST. ASKED PT WHAT YEAR IT IS AND PT STATES "I DON'T KNOW." INFORMED PT IT IS 2023. ASSESSMENT COMPLETE. PT REPORTING PAIN 3/10 TO LOWER BACK, PRN PAIN MEDICATION ADMINISTERED, SEE MAR. LUNG SOUNDS CLEAR IN RUL, CELY AND LLL. DIMINISHED IN RLL. BOWEL TONES ACTIVE. ABD SOFT AND NON-TENDER WITH PALPATION. REDNESS NOTED TO PTs BACK AND BUTTOCKS, BARRIER CREAM APPLIED TO BUTTOCKS. SLIGHT REDNESS TO GROIN NOTED, DESENEX POWDER APPLIED. SLIGHT REDNESS UNDER BILATERAL BREASTS, DESENEX POWDER APPLIED. WATER PROVIDED. SN MARÍA ELENA ASSISTING PT WITH COMBING HAIR. PT REPORTING TOILETING NEEDS FOR BM. PLACED BED SHELTON. PT STATES "I DON'T THINK I CAN GO. MAYBE LATER." BED SHELTON REMOVED. CEE EMPTIED. BREAKFAST TRAY PROVIDED. PT SITTING UP IN BED HIGH-FOWLERS WITH BREAKFAST. PT DENIES ANY OTHER NEEDS AT THIS TIME. CALL LIGHT IN REACH. BED ALARM ON.
--- NOTE | 2023-08-26 08:47 | NUR ---
CONNECTED WITH FAMILY IN [place]. PT LEAVING FOR FACILITY OF FAMILY'S CHOICE TODAY. FAMILY EXPRESSED APPRECIATION FOR CARE RECEIVED AND ASSISTANCE WITH PLACEMENT.
--- NOTE | 2023-08-26 08:55 | NUR ---
PT LEAVING TO [facility] TODAY AT 10:30, VERIFIED WITH IF HE WOULD LIKE CEE REMOVED PRIOR TO DISCHARGE. ORDER INPUT AND PRIMARY RN NOTIFIED. SHE CAN GO TO [facility] AND IF NOT ABLE TO VOID THEY CAN ASSESS UPON HER ARRIVAL TO [facility] FOR NEED/ELIMINATION NEEDS.
[2023-08-26] MEDS ORDERED: QUETIAPINE FUMA25 MG PO (08:57)
[2023-08-26] MEDS ORDERED: CEFDINIR300 MG PO (08:59)
[2023-08-26 09:31] VITALS: BP 131/65
--- NOTE | 2023-08-26 09:36 | NUR ---
IN TO SEVEN CEE PER . COLEMAN AMEZCUA'd WNL. IV REMOVED WNL. GAUZE AND COBAN PLACED. PT DRESSED IN OWN CLOTHES. BELONGINGS RETURNED. VITALS AND I&Os COMPLETE. PT DENIES ANY OTHER NEEDS AT THIS TIME. CALL LIGHT IN REACH. BED ALARM ON.
--- NOTE | 2023-08-26 10:35 | NUR ---
IN EMS HERE TO TRANSFER PT. PT REPORTING TOILETING NEEDS. BED SHELTON PLACED. SMALL VOID NOTED. PT PLACED ON STRETCHER. BELONGINGS SENT WITH PTs FAMILY. NO OTHER NEEDS FROM THIS RN.
--- NOTE | 2023-08-26 11:00 | NUR ---
THIS RN CALLED [facility] AND REPORT WAS GIVEN TO KARINA OSORIO. QUESTIONS ANSWERED. PT WAS SENT WITH DC PACKET.
[2023-08-27 06:00] LABS: NOROVIRUS 1 BY PCR Not Detected (()); NOROVIRUS 2 BY PCR Not Detected (())
== END 2023-08-26 10:45 | DRG 872 ==
LOC: ED 04:54 → MS 04:55
PROVIDERS: Emergency Medicine; Internal Medicine; ADMIT Family Medicine; ATTEND Family Medicine
DX: A41.9 Sepsis, unspecified organism (principal); N39.0 Urinary tract infection, site not specified; N17.9 Acute kidney failure, unspecified; F02.811 Dementia in other diseases classified elsewhere, unspecified severity, with agitation; D69.6 Thrombocytopenia, unspecified; E87.6 Hypokalemia; E83.39 Other disorders of phosphorus metabolism; E83.42 Hypomagnesemia; G30.9 Alzheimer's disease, unspecified; Z66 Do not resuscitate; Z51.5 Encounter for palliative care; M54.9 Dorsalgia, unspecified; R19.7 Diarrhea, unspecified; G47.00 Insomnia, unspecified; E89.0 Postprocedural hypothyroidism; Z90.49 Acquired absence of other specified parts of digestive tract; Z90.89 Acquired absence of other organs; Z98.890 Other specified postprocedural states; Z79.890 Hormone replacement therapy; Z88.0 Allergy status to penicillin; Z88.5 Allergy status to narcotic agent; Z79.2 Long term (current) use of antibiotics; Z79.899 Other long term (current) drug therapy; Z88.8 Allergy status to other drugs, medicaments and biological substances
CPT/HCPCS: 36415; 70450; 71045; 80053; 80074; 81001; 83605; 83735; 83880; 84100; 85025; 87040; 87493; 92526; 92610; 93005; 93010; 97162; 97166; 97530; 97535; A9270; J0131; J0696; J1885; J3010; J3475; J7030; J7040; J7060; J7121; U0002